=== PATIENT | female | born 1945 | race African-American/Black ===

== ENCOUNTER 2018-11-27 13:43 | Inpatient (IN) | payer OTHER ==
[~2018-11-27] VITALS: Ht 154.9 cm; Wt 39.9 kg
--- NOTE | 2018-11-27 14:16 | ERD ---
ER Documentation Chief Complaint Chief Complaint dialysis shunt not working. no dialysis today because of problem HPI The patient is a 73-year-old female, presenting to the ER because of nonfunctional right upper extremity AV fistula, unable to have dialysis today, she denies chest pain, dyspnea, abdominal pain, vomiting. ROS All systems reviewed and are negative except as per history of present illness. Medications Home Meds Reported Medications Insulin Regular, Human (Humulin R) 100 Unit/1 Ml Vial, 0 IJ SLIDING SCALE, VIAL IF BS 71-150=O UNIT <70 GIVE 8OZ ORANGE JUICE AND CALL MD IF BS 151-200=2 UNITS,201-250=4 UNITS,251-300=8 UNITS,351-400=10 UNITS,>400=12 UNITS AND CALL MD. 11/27/18 Trazodone Hcl* (Trazodone Hcl*) 50 Mg Tablet, 50 MG PO QHS, #30 TAB 11/27/18 Tadalafil (Cialis) 20 Mg Tablet, 20 MG PO DAILY, TAB 11/27/18 Sennosides* (Senna Lax*) 8.6 Mg Tablet, 1 TAB PO QHS, TAB 11/27/18 Nut.tx.impaired Renal Fxn,Soy (NEPRO CARB STEADY) 237 Ml Liquid, 237 ML PO DAILY 11/27/18 Metoprolol Succinate* (Toprol XL*) 100 Mg Tab.sr.24h, 100 MG PO DAILY, #30 TAB HOLD FOR SBP<110 OR HR<60 11/27/18 Lorazepam* (Lorazepam*) 0.5 Mg Tablet, 0.5 MG PO HS PRN for NEEDED, TAB 11/27/18 Lisinopril* (Lisinopril*) 20 Mg Tablet, 20 MG PO DAILY, #30 TAB HOLD IF SBP<110 OR HR<60 11/27/18 Heparin Sodium,Porcine/Pf (HEPARIN SOD 5,000 UNIT/ 0.5 ML) 5,000 Unit/0.5 Ml Vial, 5000 UNIT IJ DAILY, VIAL 11/27/18 Glucagon,Human Recombinant (Glucagon Emergency Kit) 1 Mg Kit, 1 MG IJ NEEDED, KIT 11/27/18 Glipizide* (Glipizide*) 5 Mg Tablet, 5 MG PO AC BREAKFAST, TAB 11/27/18 Folic Acid* (Folic Acid*) 1 Mg Tablet, 1 MG PO Q MON,FRI, TAB 11/27/18 Mineral Oil* (Fleet* Mineral Oil Enema) Unknown Strength Oil, 118 ML RI Q72H, E NEMA 11/27/18 Febuxostat* (Uloric*) 40 Mg Tablet, 40 MG PO DAILY PRN for NEEDED, TAB 11/27/18 Famotidine* (Famotidine*) 20 Mg Tablet, 20 MG PO DAILY, #30 TAB 11/27/18 Ezetimibe* (Zetia*) 10 Mg Tablet, 10 MG PO DAILY, TAB 11/27/18 Bisacodyl (Dulcolax) 10 Mg Supp.rect, 10 MG RC Q48H, SUPP.RECT 11/27/18 Darbepoetin Madhu in Polysorbat (Aranesp) 25 Mcg/0.42 Ml Syringe, 75 MCG IJ Q TUES 11/27/18 Calcitriol* (Rocaltrol*) 0.25 Mcg Capsule, 0.25 MCG PO DAILY, CAP 11/27/18 Atorvastatin* (Atorvastatin*) 40 Mg Tablet, 40 MG PO QHS, #30 TAB 11/27/18 Aspirin* (Aspirin* EC) 81 Mg Tablet.dr, 81 MG PO DAILY, TAB 11/27/18 Amiodarone Hcl* (Amiodarone Hcl*) 200 Mg Tablet, 200 MG PO DAILY, #30 TAB 11/27/18 Acetaminophen* (Acetaminophen*) 650 Mg Tablet, 650 MG PO Q6H PRN for PAIN AND OR ELEVATED TEMP, #30 TAB 11/27/18 Allergies Allergies: Coded Allergies: No Known Allergy (Unverified , 11/27/18) Physical Exam Vitals Vital Signs Date Temp Pulse Resp B/P (MAP) Pulse Ox O2 O2 Flow FiO2 Time Delivery Rate 11/27/18 72 20 101/66 96 Room Air 18:49 (78) 11/27/18 Nasal 2 16:30 Cannula 11/27/18 97.6 80 18 110/60 80 13:48 (77) Physical Exam Const: No acute distress. Head: Atraumatic. Eyes: Normal Conjunctiva. ENT: Normal External Ears, Nose and Mouth. Neck: Full range of motion. No meningismus. Resp: Clear to auscultation bilaterally. Cardio: Regular rate and rhythm. Abd: Soft, non distended, normal bowel sounds, non tender. Skin: No petechiae or rashes. Back: No midline or flank tenderness. Ext: No cyanosis, or edema. Right upper extremity AV fistula w/o thrill/bruit Neur: Awake and alert. No focal deficit Psych: Normal Mood and Affect. Result Diagram: 11/27/18 1446 11/27/18 1446 Results 24 hrs Laboratory Tests Test 11/27/18 14:46 11/27/18 14:47 White Blood Count 12.8 10^3/ul Red Blood Count 4.88 10^6/ul Hemoglobin 13.1 g/dl Hematocrit 43.2 % Mean Corpuscular Volume 88.5 fl Mean Corpuscular Hemoglobin 26.8 pg Mean Corpuscular Hemoglobin Concent 30.3 g/dl Red Cell Distribution Width 15.0 % Platelet Count 342 10^3/UL Mean Platelet Volume 9.3 fl Immature Granulocytes % 0.500 % Neutrophils % 84.4 % Lymphocytes % 6.4 % Monocytes % 8.2 % Eosinophils % 0.2 % Basophils % 0.3 % Nucleated Red Blood Cells % 0.0 /100WBC Immature Granulocytes # 0.060 10^3/ul Neutrophils # 10.8 10^3/ul Lymphocytes # 0.8 10^3/ul Monocytes # 1.1 10^3/ul Eosinophils # 0.0 10^3/ul Basophils # 0.0 10^3/ul Nucleated Red Blood Cells # 0.0 10^3/ul Sodium Level 143 mmol/L Potassium Level 4.8 mmol/L Chloride Level 97 mmol/L Carbon Dioxide Level 30 mmol/L Anion Gap 16 Blood Urea Nitrogen 56 mg/dl Creatinine 10.70 mg/dl Est Glomerular Filtrat Rate mL/min mL/min Glucose Level 85 mg/dl Calcium Level 10.3 mg/dl Prothrombin Time 12.0 Sec Prothrombin Time Ratio 0.9 INR International Normalized Ratio 0.88 Activated Partial Thromboplast Time 28.3 Sec Current Medications Medications Dose Sig/Harrison Start Time Status Last (Trade) Ordered Route PRN Stop Time Admin Dose Reason Admin 650 mg Q6H PRN 11/27/18 Acetaminophen PO MILD 18:30 (Tylenol PAIN(1-3)OR Tab) ELEVATED TEMP Amiodarone 200 mg DAILY PO 11/28/18 HCl 09:00 (Cordarone) Aspirin 81 mg DAILY PO 11/28/18 (Halfprin) 09:00 40 mg QHS PO 11/27/18 Atorvastatin 21:00 Calcium (Lipitor) Bisacodyl 10 mg Q48H RI 11/27/18 (Dulcolax 18:30 Supp) Calcitriol 0.25 mcg DAILY PO 11/28/18 (Rocaltrol) 09:00 EZETIMIBE 10 mg DAILY PO 11/28/18 (Zetia) 09:00 Famotidine 20 mg DAILY PO 11/28/18 (Pepcid) 09:00 Folic Acid 1 mg DAILY PO 11/28/18 (Folic Acid) 09:00 Heparin 5,000 unit BID SC 11/27/18 Sodium 21:00 (Porcine) (Heparin (5000 Units/0.5 ml)) Lisinopril 20 mg DAILY PO 11/28/18 (Zestril) 09:00 Metoprolol 100 mg DAILY PO 11/28/18 Succinate 09:00 (Toprol Xl) Senna 1 tab QHS PO 11/27/18 (Senokot) 21:00 Trazodone 50 mg QHS PO 11/27/18 HCl 21:00 (Desyrel) Procedures/MDM Consultation: I discussed the patient with the vascular surgeon Dr. Mohamud at 4:45 PM, who was made aware of the lab, the treatment, the patient condition and he accepted the consult MEDICAL MAKING DECISION: The patient is a 73-year-old male, presenting with acute malfunction of the AV fistula, will require to be admitted for intervention Departure Diagnosis: Primary Impression: Problem with dialysis access Additional Impression: Anemia VIVIANA JAUREGUI MD November 27, 2018 14:16
[2018-11-27] MEDS ORDERED: ACET-2047 PO (17:37)
[2018-11-27] MEDS ORDERED: AMIO200T4 PO (17:39)
[2018-11-27] MEDS ORDERED: ASPI-817 PO (17:39)
[2018-11-27] MEDS ORDERED: ATOR40TA68 PO (17:40)
[2018-11-27] MEDS ORDERED: CALC0.255 PO (17:40)
[2018-11-27] MEDS ORDERED: DARB25DI IJ (17:42)
[2018-11-27] MEDS ORDERED: EZET10TA31 PO (17:43)
[2018-11-27] MEDS ORDERED: BISA10SU55 RC (17:43)
[2018-11-27] MEDS ORDERED: FAMO20TA18 PO (17:44)
[2018-11-27] MEDS ORDERED: FEBU40TA PO (17:44)
[2018-11-27] MEDS ORDERED: MINE133E23 PR (17:45)
[2018-11-27] MEDS ORDERED: FOLI-49 PO (17:46)
[2018-11-27] MEDS ORDERED: GLIP5TAB13 PO (17:46)
[2018-11-27] MEDS ORDERED: HEPA500021 IJ (17:47)
[2018-11-27] MEDS ORDERED: GLUC1KIT IJ (17:47)
[2018-11-27] MEDS ORDERED: LISI-471 PO (17:48)
[2018-11-27] MEDS ORDERED: LORA0.5T PO (17:49)
[2018-11-27] MEDS ORDERED: METO-336 PO (17:50)
[2018-11-27] MEDS ORDERED: NUT.237L54 PO (17:51)
[2018-11-27] MEDS ORDERED: SENN-120 PO (17:51)
[2018-11-27] MEDS ORDERED: TRAZ-111 PO (17:52)
[2018-11-27] MEDS ORDERED: TADA20TA PO (17:52)
[2018-11-27] MEDS ORDERED: INSU100V3 IJ (17:55)
[2018-11-27] MEDS ORDERED: ACETAMINOPHEN 325 MG TAB PO PRN (18:30)
[2018-11-27] MEDS ORDERED: HEPARIN 5,000 UNIT/0.5 ML VIAL SC SCH (21:00)
[2018-11-27 21:25] VITALS: BP 125/65; PULSE 61; RESP 18
[2018-11-27] MEDS ORDERED: HEPARIN 5,000 UNIT/1 ML VIAL ONE (22:55)
[2018-11-27] MEDS ORDERED: PENDING SANTYL ORDER FOR WOUND CARE XX PRN (23:00)
[2018-11-27] MEDS: SENNA TAB PO SCH (23:02)
[2018-11-27] MEDS: traZODone 50 MG TAB PO SCH (23:02)
[2018-11-27] MEDS: ATORVASTATIN 40 MG TAB PO SCH (23:02)
[2018-11-27] MEDS: HEPARIN 5,000 UNIT/1 ML VIAL SC SCH (23:04)
[2018-11-27] MEDS: BISACODYL 10 MG SUPP PR SCH (23:12)
[2018-11-27 23:15] VITALS: Ht 154.9 cm; Wt 39.9 kg
[2018-11-28] VITALS (15 sets, daily range): BP systolic 92–124; BP diastolic 39–63; PULSE 59–70; RESP 13–23
[2018-11-28] MEDS ORDERED: GLUCOSE GEL 15 GRAM TUBE BUCCAL PRN (08:00)
[2018-11-28] MEDS ORDERED: GLUCOSE GEL 15 GRAM TUBE PO PRN ×2 (08:00)
[2018-11-28] MEDS ORDERED: INSULIN ASPART [NOVOLOG] 3 ML PEN SC SCH (08:00)
[2018-11-28] MEDS ORDERED: GLUCAGON 1 MG INJ IM PRN (08:00)
[2018-11-28] MEDS ORDERED: DEXTROSE 50% 50 ML SYRINGE IV PRN ×2 (08:00)
[2018-11-28] MEDS: HEPARIN 5,000 UNIT/1 ML VIAL SC SCH ×2 (08:52→21:00)
[2018-11-28] MEDS: CALCITRIOL 0.25 MCG CAP PO SCH (08:53)
[2018-11-28] MEDS: FOLIC ACID 1 MG TAB PO SCH (08:54)
[2018-11-28] MEDS: FAMOTIDINE 20 MG TAB PO SCH (08:54)
[2018-11-28] MEDS: EZETIMIBE 10 MG TAB PO SCH (08:54)
[2018-11-28] MEDS: ASPIRIN (EC) 81 MG TAB PO SCH (08:54)
[2018-11-28] MEDS: LISINOPRIL 20 MG TAB PO SCH (08:56)
[2018-11-28] MEDS: METOPROLOL (XL) 100 MG TAB PO SCH (08:56)
[2018-11-28] MEDS: AMIODARONE 200 MG TAB PO SCH (08:56)
--- NOTE | 2018-11-28 10:41 | HP ---
DATE OF ADMISSION: 11/27/2018 CHIEF COMPLAINT: Malfunctioning AV shunt. HISTORY OF PRESENT ILLNESS: This is a 73-year-old female with a past medical history of end-stage re nal disease on intermittent hemodialysis, history of hypertension, history of arrhythmia, history of diabetes, history of dyslipidemia, history of mineral bone disorder, who presents to [facility] from [facility] due to nonfunctioning AV fistula. The patient upon arriva l to the emergency room was noted to have no chest pain, no fevers, no chills, no nausea, vomiting. The patient was subsequently admitted to med/surg for evaluation. Overnight, the patient was stable. Upon my evaluation of the patient at this time, she currently denies any fevers, chills, nausea, or v omiting. The patient is agitated. PAST MEDICAL HISTORY: As stated above, history of end-stage renal disease, history of diabetes, hype rtension, arrhythmia, history of anemia. PAST SURGICAL HISTORY: Status post AV fistula. FAMILY HISTORY: No family history of kidney disease. SOCIAL HISTORY: She lives at [facility] facility. MEDICATIONS: The patient's medications have been reviewed. REVIEW OF SYSTEMS: A 14-point review of systems was conducted. Pertinent positives stated in HPI, o therwise negative. PHYSICAL EXAMINATION: VITAL SIGNS: Blood pressure is 119/52, respirations 17, pulse 70, temperature 97.9. HEENT: Head is normocephalic. NECK: Supple. HEART: Regular rate. LUNGS: Show diminished breath sounds at the base. ABDOMEN: Soft, nontender to palpation without rebound or guarding. EXTREMITIES: Negative for clubbing, cyanosis, no edema. DERMATOLOGIC: No rashes. MUSCULOSKELETAL: The patient has a right AV fistula. NEUROLOGIC: No focal deficits. LABORATORY DATA: Reviewed. ASSESSMENT AND PLAN: This is a 73-year-old female who presents with: 1. End-stage renal disease. The patient has a malfunctioning AV fistula. Plan is to get a vascular surgery consult, Dr. Mohamud for evaluation. We will also get an ultrasound. We will monitor sigrid al function closely. The patient may require a Valente catheter placement if AV fistula cannot be ap propriately corrected in a timely fashion. 2. Anemia. Monitor hemoglobin and hematocrit levels. We will give Epogen as needed. 3. Mineral bone disorder, monitor calcium and phosphorus levels. 4. Hypertension. Continue current blood pressure regimen. 5. History of arrhythmia. Continue amiodarone and metoprolol. Follow up with cardiology. 6. Dyslipidemia. Continue statin therapy. 7. Mineral bone disorder. Continue vitamin D analogs. 8. Gastrointestinal and deep vein thrombosis prophylaxis. 9. Leukocytosis, etiology may be secondary to systemic inflammatory response syndrome. No active ev idence of infection. Continue to monitor and place an ID consult for evaluation. 10. History of constipation. Continue current bowel regimen, adjust as needed. Please note, I spent an additional 30 minutes of [id number] time with this patient discussing advan layton directives and code status. The patient is FULL CODE. Dictated By: TANYA GONZALEZ DO NR/NTS Conf#: [id number] DID#: [id number] CC: TANYA GONZALEZ DO; BRANDON MOHAMUD MD;*EndCC*
--- NOTE | 2018-11-28 10:47 | CONS ---
Assessment/Plan Assessment/Plan Hospital Course (Demo Recall) 1. History of possible arrhythmia possible proximal atrial fibrillation also detail is unclear. currently on amiodarone remains in sinus 2. Renal failure on dialysis 3. Hemodialysis access malfunction 4. Hypertension 5. Diabetes 6. Possible psych disorder 7. Incomplete data Recommendations: I will continue with her current cardiac care for now. Echocardiogram will be obtained to evaluate LV size and function as well as left atrial size. Hemodialysis management as per renal AV fistula repair/replacement as per vascular. Thank you for his referral we will continue to follow along with you JING GARAY MD [facility] Consultation Date/Type/Reason Admit Date/Time November 27, 2018 at 17:31 Date of Consultation: November 28, 2018 Type of Consult Cardiology Reason for Consultation Possible arrhythmia Requesting Provider: TANYA GONZALEZ DO Date/Time of Note DATE: 11/28/18 TIME: 10:43 Hx of Present Illness Interventional cardiology consultation note Chief complaint: AV fistula malfunction Reason for consult: Rule out arrhythmia History of present illness: Thank you for this referral. History was obtained from the patient was extremely poor historian discussion with physician and staff. This is a 73 -[place] female with a renal failure on dialysis hypertension who was admitted because of AV fistula malfunction. Patient is on antiarrhythmics including amiodarone. Detail is unclear. She is very poor historian and uncooperative with physical exam and history. She is unaware of any history of cardiac disorder or arrhythmia she denies any palpitation to me. She denies any history of CVA to me Allergies: No known drug allergies Medications were reviewed as per medical reconciliation sheet Family history: She denies any history of early coronary artery disease Social history: Has quit smoking. Past medical history: End-stage renal disease hemodialysis diabetes hypertension Review of system: Patient denies all others except for above-mentioned Past Medical History Home Meds Reported Medications Insulin Regular, Human (Humulin R) 100 Unit/1 Ml Vial, 0 IJ SLIDING SCALE, VIAL IF BS 71-150=O UNIT <70 GIVE 8OZ ORANGE JUICE AND CALL MD IF BS 151-200=2 UNITS,201-250=4 UNITS,251-300=8 UNITS,351-400=10 UNITS,>400=12 UNITS AND CALL MD. 11/27/18 Trazodone Hcl* (Trazodone Hcl*) 50 Mg Tablet, 50 MG PO QHS, #30 TAB 11/27/18 Tadalafil (Cialis) 20 Mg Tablet, 20 MG PO DAILY, TAB 11/27/18 Sennosides* (Senna Lax*) 8.6 Mg Tablet, 1 TAB PO QHS, TAB 11/27/18 Nut.tx.impaired Renal Fxn,Soy (NEPRO CARB STEADY) 237 Ml Liquid, 237 ML PO DAILY 11/27/18 Metoprolol Succinate* (Toprol XL*) 100 Mg Tab.sr.24h, 100 MG PO DAILY, #30 TAB HOLD FOR SBP<110 OR HR<60 11/27/18 Lorazepam* (Lorazepam*) 0.5 Mg Tablet, 0.5 MG PO HS PRN for NEEDED, TAB 11/27/18 Lisinopril* (Lisinopril*) 20 Mg Tablet, 20 MG PO DAILY, #30 TAB HOLD IF SBP<110 OR HR<60 11/27/18 Heparin Sodium,Porcine/Pf (HEPARIN SOD 5,000 UNIT/ 0.5 ML) 5,000 Unit/0.5 Ml Vial, 5000 UNIT IJ DAILY, VIAL 11/27/18 Glucagon,Human Recombinant (Glucagon Emergency Kit) 1 Mg Kit, 1 MG IJ NEEDED, KIT 11/27/18 Glipizide* (Glipizide*) 5 Mg Tablet, 5 MG PO AC BREAKFAST, TAB 11/27/18 Folic Acid* (Folic Acid*) 1 Mg Tablet, 1 MG PO Q MON,FRI, TAB 11/27/18 Mineral Oil* (Fleet* Mineral Oil Enema) Unknown Strength Oil, 118 ML WA Q72H, ENEMA 11/27/18 Febuxostat* (Uloric*) 40 Mg Tablet, 40 MG PO DAILY PRN for NEEDED, TAB 11/27/18 Famotidine* (Famotidine*) 20 Mg Tablet, 20 MG PO DAILY, #30 TAB 11/27/18 Ezetimibe* (Zetia*) 10 Mg Tablet, 10 MG PO DAILY, TAB 11/27/18 Bisacodyl (Dulcolax) 10 Mg Supp.rect, 10 MG RC Q48H, SUPP.RECT 11/27/18 Darbepoetin Madhu in Polysorbat (Aranesp) 25 Mcg/0.42 Ml Syringe, 75 MCG IJ Q TUES 11/27/18 Calcitriol* (Rocaltrol*) 0.25 Mcg Capsule, 0.25 MCG PO DAILY, CAP 11/27/18 Atorvastatin* (Atorvastatin*) 40 Mg Tablet, 40 MG PO QHS, #30 TAB 11/27/18 Aspirin* (Aspirin* EC) 81 Mg Tablet.dr, 81 MG PO DAILY, TAB 11/27/18 Amiodarone Hcl* (Amiodarone Hcl*) 200 Mg Tablet, 200 MG PO DAILY, #30 TAB 11/27/18 Acetaminophen* (Acetaminophen*) 650 Mg Tablet, 650 MG PO Q6H PRN for PAIN AND OR ELEVATED TEMP, #30 TAB 11/27/18 Medications Current Medications Acetaminophen (Tylenol Tab) 650 mg Q6H PRN PO MILD PAIN(1-3)OR ELEVATED TEMP; Start 11/27/18 at 18:30 Amiodarone HCl (Cordarone) 200 mg DAILY PO Last administered on 11/28/18at 08:56; Admin Dose 200 MG; Start 11/28/18 at 09:00 Aspirin (Halfprin) 81 mg DAILY PO Last administered on 11/28/18at 08:54; Admin Dose 81 MG; Start 11/28/18 at 09:00 Atorvastatin Calcium (Lipitor) 40 mg QHS PO Last administered on 11/27/18at 23:02; Admin Dose 40 MG; Start 11/27/18 at 21:00 Bisacodyl (Dulcolax Supp) 10 mg Q48H WA ; Start 11/27/18 at 18:30 Calcitriol (Rocaltrol) 0.25 mcg DAILY PO Last administered on 11/28/18at 08:53; Admin Dose 0.25 MCG; Start 11/28/18 at 09:00 EZETIMIBE (Zetia) 10 mg DAILY PO Last administered on 11/28/18 08:54; Admin Dose 10 MG; Start 11/28/18 at 09:00 Famotidine (Pepcid) 20 mg DAILY PO Last administered on 11/28/18 08:54; Admin Dose 20 MG; Start 11/28/18 at 09:00 Folic Acid (Folic Acid) 1 mg DAILY PO Last administered on 11/28/18at 08:54; Admin Dose 1 MG; Start 11/28/18 at 09:00 Lisinopril (Zestril) 20 mg DAILY PO Last administered on 11/28/18at 08:56; Admin Dose 20 MG; Start 11/28/18 at 09:00 Metoprolol Succinate (Toprol Xl) 100 mg DAILY PO Last administered on 11/28/18at 08:56; Admin Dose 100 MG; Start 11/28/18 at 09:00 Senna (Senokot) 1 tab QHS PO Last administered on 11/27/18 23:02; Admin Dose 1 TAB; Start 11/27/18 at 21:00 Trazodone HCl (Desyrel) 50 mg QHS PO Last administered on 11/27/18at 23:02; Admin Dose 50 MG; Start 11/27/18 at 21:00 Miscellaneous Information [facility] This patient tarango... PRN PRN XX WOUND CARE; Start 11/27/18 at 23:00 Heparin Sodium (Porcine) (Heparin (5000 Units/1ml)) 5,000 unit Q12 SC Last administered on 11/28/18at 08:52; Admin Dose 5,000 UNIT; Start 11/27/18 at 22:55 Insulin Aspart (Novolog Insulin Pen) NOVOLOG *MILD* ALGORITHM WITH MEALS BEDTIME SC ; Start 11/28/18 at 08:00 Miscellaneous Information 1 ea NOTE XX ; Start 11/28/18 at 08:00 Glucose (Glutose) 15 gm Q15M PRN PO DECREASED GLUCOSE; Start 11/28/18 at 08:00 Glucose (Glutose) 22.5 gm Q15M PRN PO DECREASED GLUCOSE; Start 11/28/18 at 08:00 Dextrose (D50w Syringe) 25 ml Q15M PRN IV DECREASED GLUCOSE; Start 11/28/18 at 08:00 Dextrose (D50w Syringe) 50 ml Q15M PRN IV DECREASED GLUCOSE; Start 11/28/18 at 08:00 Glucagon (Glucagen) 1 mg Q15M PRN IM DECREASED GLUCOSE; Start 11/28/18 at 08:00 Glucose (Glutose) 15 gm Q15M PRN BUCCAL DECREASED GLUCOSE; Start 11/28/18 at 08:00 Allergies: Coded Allergies: No Known Allergy (Unverified , 11/27/18) Social History Smoking Status: Former smoker Exam/Review of Systems Vital Signs Vitals Vital Signs Date Temp Pulse Resp B/P (MAP) Pulse Ox O2 O2 Flow FiO2 Time Delivery Rate 11/28/18 97.9 70 17 119/52 96 Room Air 08:00 (74) 11/27/18 2 16:30 Exam Exam General: Thin cachectic looking female in no acute distress HEENT: NC/AT. pupils are equal. round. NECK: . no stridor. CV: RRR. systolic murmur; no gallop or rubs. PULM: no wheezing or rhonchi. GI: SOFT, NT, ND, no rebound or guarding Extremity: Significant B/L LE edema. no clubbing. neuro: awake and alert, OX2. Psych: Appears angry rectal: deferred EKG was personally showed normal sinus rhythm. Nonspecific T wave abnormalities Labs Result Diagram: 11/28/18 0539 11/28/18 0539 Results 24hrs Laboratory Tests Test 11/27/18 14:46 11/27/18 14:47 11/28/18 00:10 11/28/18 02:43 White Blood Count 12.8 H Red Blood Count 4.88 Hemoglobin 13.1 L Hematocrit 43.2 Mean Corpuscular 88.5 Volume Mean Corpuscular 26.8 L Hemoglobin Mean Corpuscular 30.3 L Hemoglobin Concent Red Cell 15.0 H Distribution Width Platelet Count 342 Mean Platelet Volume 9.3 Immature 0.500 H Granulocytes % Neutrophils % 84.4 H Lymphocytes % 6.4 L Monocytes % 8.2 Eosinophils % 0.2 Basophils % 0.3 Nucleated Red Blood 0.0 Cells % Immature 0.060 H Granulocytes # Neutrophils # 10.8 H Lymphocytes # 0.8 Monocytes # 1.1 H Eosinophils # 0.0 Basophils # 0.0 Nucleated Red Blood 0.0 Cells # Sodium Level 143 Potassium Level 4.8 Chloride Level 97 Carbon Dioxide Level 30 Anion Gap 16 H Blood Urea Nitrogen 56 H Creatinine 10.70 H Est Glomerular Filtrat Rate mL/min Glucose Level 85 Calcium Level 10.3 H Prothrombin Time 12.0 Prothrombin Time 0.9 Ratio INR International 0.88 Normalized Ratio Activated 28.3 Partial Thromboplast Time Bedside Glucose 93 106 Test 11/28/18 05:39 11/28/18 08:47 11/28/18 09:25 11/28/18 10:06 White Blood Count 11.9 H Red Blood Count 4.18 L Hemoglobin 11.4 L Hematocrit 36.4 L Mean Corpuscular 87.1 Volume Mean Corpuscular 27.3 L Hemoglobin Mean Corpuscular 31.3 L Hemoglobin Concent Red Cell 15.0 H Distribution Width Platelet Count 338 Mean Platelet Volume 10.2 Immature 0.600 H Granulocytes % Neutrophils % 87.5 H Lymphocytes % 4.6 L Monocytes % 6.7 Eosinophils % 0.2 Basophils % 0.4 Nucleated Red Blood 0.0 Cells % Immature 0.070 H Granulocytes # Neutrophils # 10.4 H Lymphocytes # 0.5 L Monocytes # 0.8 Eosinophils # 0.0 Basophils # 0.1 Nucleated Red Blood 0.0 Cells # Sodium Level 141 Potassium Level 4.8 Chloride Level 99 Carbon Dioxide Level 26 Anion Gap 16 H Blood Urea Nitrogen 61 H Creatinine 10.96 H Est Glomerular Filtrat Rate mL/min Glucose Level 60 #L Calcium Level 9.4 Phosphorus Level 6.0 H Magnesium Level 2.5 Total Bilirubin 0.2 Direct Bilirubin 0.00 Indirect Bilirubin 0.2 Aspartate Amino 24 Transf (AST/SGOT) Alanine 19 Aminotransferase (AL T/SGPT) Alkaline Phosphatase 110 Total Protein 6.5 Albumin 3.6 Bedside Glucose 63 L 89 77 Medications Medications Current Medications Acetaminophen (Tylenol Tab) 650 mg Q6H PRN PO MILD PAIN(1-3)OR ELEVATED TEMP; Start 11/27/18 at 18:30 Amiodarone HCl (Cordarone) 200 mg DAILY PO Last administered on 11/28/18at 08:56; Admin Dose 200 MG; Start 11/28/18 at 09:00 Aspirin (Halfprin) 81 mg DAILY PO Last administered on 11/28/18 08:54; Admin Dose 81 MG; Start 11/28/18 at 09:00 Atorvastatin Calcium (Lipitor) 40 mg QHS PO Last administered on 11/27/18at 23:02; Admin Dose 40 MG; Start 11/27/18 at 21:00 Bisacodyl (Dulcolax Supp) 10 mg Q48H WA ; Start 11/27/18 at 18:30 Calcitriol (Rocaltrol) 0.25 mcg DAILY PO Last administered on 11/28/18at 08:53; Admin Dose 0.25 MCG; Start 11/28/18 at 09:00 EZETIMIBE (Zetia) 10 mg DAILY PO Last administered on 11/28/18at 08:54; Admin Dose 10 MG; Start 11/28/18 at 09:00 Famotidine (Pepcid) 20 mg DAILY PO Last administered on 11/28/18 08:54; Admin Dose 20 MG; Start 11/28/18 at 09:00 Folic Acid (Folic Acid) 1 mg DAILY PO Last administered on 11/28/18 08:54; Admin Dose 1 MG; Start 11/28/18 at 09:00 Lisinopril (Zestril) 20 mg DAILY PO Last administered on 11/28/18 08:56; Admin Dose 20 MG; Start 11/28/18 at 09:00 Metoprolol Succinate (Toprol Xl) 100 mg DAILY PO Last administered on 11/28/18 08:56; Admin Dose 100 MG; Start 11/28/18 at 09:00 Senna (Senokot) 1 tab QHS PO Last administered on 11/27/18at 23:02; Admin Dose 1 TAB; Start 11/27/18 at 21:00 Trazodone HCl (Desyrel) 50 mg QHS PO Last administered on 11/27/18 23:02; Admin Dose 50 MG; Start 11/27/18 at 21:00 Miscellaneous Information (Pending [facility] Order For Wound Care) This patient tarango... PRN PRN XX WOUND CARE; Start 11/27/18 at 23:00 Heparin Sodium (Porcine) (Heparin (5000 Units/1ml)) 5,000 unit Q12 SC Last administered on 11/28/18at 08:52; Admin Dose 5,000 UNIT; Start 11/27/18 at 22:55 Insulin Aspart (Novolog Insulin Pen) NOVOLOG *MILD* ALGORITHM WITH MEALS BEDTIME SC ; Start 11/28/18 at 08:00 Miscellaneous Information 1 ea NOTE XX ; Start 11/28/18 at 08:00 Glucose (Glutose) 15 gm Q15M PRN PO DECREASED GLUCOSE; Start 11/28/18 at 08:00 Glucose (Glutose) 22.5 gm Q15M PRN PO DECREASED GLUCOSE; Start 11/28/18 at 08:00 Dextrose (D50w Syringe) 25 ml Q15M PRN IV DECREASED GLUCOSE; Start 11/28/18 at 08:00 Dextrose (D50w Syringe) 50 ml Q15M PRN IV DECREASED GLUCOSE; Start 11/28/18 at 08:00 Glucagon (Glucagen) 1 mg Q15M PRN IM DECREASED GLUCOSE; Start 11/28/18 at 08:00 Glucose (Glutose) 15 gm Q15M PRN BUCCAL DECREASED GLUCOSE; Start 11/28/18 at 08:00 JING GARAY MD November 28, 2018 10:47
[2018-11-28] MEDS ORDERED: DEXTROSE 5%-0.9% NACL 1,000 ML IV SCH (11:00)
[2018-11-28] MEDS: INSULIN ASPART [NOVOLOG] 3 ML PEN SC SCH ×3 (13:00→21:00)
[2018-11-28] MEDS ORDERED: BUPIVACAINE 0.25% (MPF) 30 ML INJ ONE (16:17)
[2018-11-28] MEDS ORDERED: HEPARIN 1000 UNITS/ML 10 ML INJ ONE ×2 (16:17→20:51)
[2018-11-28] MEDS ORDERED: POLYMYXIN/BACITRACIN 1L IRRIG ONE (16:17)
[2018-11-28] MEDS ORDERED: THROMBIN 5000 UNIT VIAL ONE (16:17)
[2018-11-28] MEDS ORDERED: GELATIN SIZE 100 SPONGE ONE (16:17)
[2018-11-28] MEDS ORDERED: LIDOCAINE 1% (MPF) 30 ML INJ ONE (16:17)
--- NOTE | 2018-11-28 17:48 | CONS ---
DATE OF ADMISSION: 11/27/2018 DATE OF CONSULTATION: 11/28/2018 TYPE OF CONSULTATION: Infectious Disease. REASON FOR CONSULTATION: Antibiotic management. HISTORY OF PRESENT ILLNESS: Kellie Kothari is a 73-year-old female who presents to the emergency room fo r nonfunctioning of her right upper extremity AV fistula with inability to have dialysis on the day o f admission. Her past problems include: 1. End-stage renal disease on hemodialysis. 2. Hypertension. 3. Arrhythmia. 4. Diabetes. 5. Dyslipidemia. 6. Mineral bone disorder. 7. Nonfunctioning AV fistula. The patient was agitated on admission. FAMILY HISTORY: Noncontributory. SOCIAL HISTORY: She does not smoke, drink or abuse drugs. She lives in a alf facility. ALLERGIES: NONE TO PENICILLIN, SULFA OR FOODS. MEDICATIONS: Per chart. REVIEW OF SYSTEMS: Noncontributory. PHYSICAL EXAMINATION: GENERAL: The patient is a well-developed, well-nourished female who is alert, responsive, in no acut e distress. VITAL SIGNS: Stable. She is afebrile. SKIN: Without generalized rash. HEENT: Within normal limits. NECK: Supple. LYMPH NODES: None palpable. CHEST: Decreased breath sounds at the bases. HEART: Without murmur or gallop. ABDOMEN: Soft, nontender, without organosplenomegaly or masses. EXTREMITIES: No cyanosis, clubbing, or edema. AV fistula on the right. RECTAL AND GENITAL: Deferred. NEUROLOGIC: No focal neurological abnormality. PLAN: Get Dr. Mohamud, vascular surgery to see if the AV fistula can be appropriately corrected. The patient may need a Valente catheter. Patient has leukocytosis may be secondary to systemic infla mmatory response, but at the present time it is unclear. Chest x-ray is negative. At this point, th ere is no evidence for infection. We will continue her on current therapy. Dictated By: HAIM TAVAREZ MD, JD/CONRAD Conf#: [id number] DID#: [id number]
--- NOTE | 2018-11-28 19:38 | PREAC ---
Date/Time of Note Date/Time of Note DATE: 11/28/18 TIME: 19:36 Anesthesia Eval and Record Evaluation Time Pre-Procedure Interview DATE: 11/28/18 TIME: 19:36 Age 73 Sex female NPO: 8 hrs Preoperative diagnosis LEFT AV FISTULA MALFUNCTION Planned procedure LEFT AV FISTULA REVISION Past Medical History Past Medical History: Includes Cardio: HTN, Arrythmia Endo: Diabetes Renal: ESRD on dialysis Surgery & Anesthesia Issues No known issue Meds Anticoagulation: No Beta Giovany within 24 hr: Yes Reported Medications Insulin Regular, Human (Humulin R) 100 Unit/1 Ml Vial, 0 IJ SLIDING SCALE, VIAL IF BS 71-150=O UNIT <70 GIVE 8OZ ORANGE JUICE AND CALL MD IF BS 151-200=2 UNITS,201-250=4 UNITS,251-300=8 UNITS,351-400=10 UNITS,>400=12 UNITS AND CALL MD. 11/27/18 Trazodone Hcl* (Trazodone Hcl*) 50 Mg Tablet, 50 MG PO QHS, #30 TAB 11/27/18 Tadalafil (Cialis) 20 Mg Tablet, 20 MG PO DAILY, TAB 11/27/18 Sennosides* (Senna Lax*) 8.6 Mg Tablet, 1 TAB PO QHS, TAB 11/27/18 Nut.tx.impaired Renal Fxn,Soy (NEPRO CARB STEADY) 237 Ml Liquid, 237 ML PO DAILY 11/27/18 Metoprolol Succinate* (Toprol XL*) 100 Mg Tab.sr.24h, 100 MG PO DAILY, #30 TAB HOLD FOR SBP<110 OR HR<60 11/27/18 Lorazepam* (Lorazepam*) 0.5 Mg Tablet, 0.5 MG PO HS PRN for NEEDED, TAB 11/27/18 Lisinopril* (Lisinopril*) 20 Mg Tablet, 20 MG PO DAILY, #30 TAB HOLD IF SBP<110 OR HR<60 11/27/18 Heparin Sodium,Porcine/Pf (HEPARIN SOD 5,000 UNIT/ 0.5 ML) 5,000 Unit/0.5 Ml Vial, 5000 UNIT IJ DAILY, VIAL 11/27/18 Glucagon,Human Recombinant (Glucagon Emergency Kit) 1 Mg Kit, 1 MG IJ NEEDED, KIT 11/27/18 Glipizide* (Glipizide*) 5 Mg Tablet, 5 MG PO AC BREAKFAST, TAB 11/27/18 Folic Acid* (Folic Acid*) 1 Mg Tablet, 1 MG PO Q MON,FRI, TAB 11/27/18 Mineral Oil* (Fleet* Mineral Oil Enema) Unknown Strength Oil, 118 ML WI Q72H, ENEMA 11/27/18 Febuxostat* (Uloric*) 40 Mg Tablet, 40 MG PO DAILY PRN for NEEDED, TAB 11/27/18 Famotidine* (Famotidine*) 20 Mg Tablet, 20 MG PO DAILY, #30 TAB 11/27/18 Ezetimibe* (Zetia*) 10 Mg Tablet, 10 MG PO DAILY, TAB 11/27/18 Bisacodyl (Dulcolax) 10 Mg Supp.rect, 10 MG RC Q48H, SUPP.RECT 11/27/18 Darbepoetin Madhu in Polysorbat (Aranesp) 25 Mcg/0.42 Ml Syringe, 75 MCG IJ Q TUES 11/27/18 Calcitriol* (Rocaltrol*) 0.25 Mcg Capsule, 0.25 MCG PO DAILY, CAP 11/27/18 Atorvastatin* (Atorvastatin*) 40 Mg Tablet, 40 MG PO QHS, #30 TAB 11/27/18 Aspirin* (Aspirin* EC) 81 Mg Tablet.dr, 81 MG PO DAILY, TAB 11/27/18 Amiodarone Hcl* (Amiodarone Hcl*) 200 Mg Tablet, 200 MG PO DAILY, #30 TAB 11/27/18 Acetaminophen* (Acetaminophen*) 650 Mg Tablet, 650 MG PO Q6H PRN for PAIN AND OR ELEVATED TEMP, #30 TAB 11/27/18 Current Medications Acetaminophen (Tylenol Tab) 650 mg Q6H PRN PO MILD PAIN(1-3)OR ELEVATED TEMP; Start 11/27/18 at 18:30 Amiodarone HCl (Cordarone) 200 mg DAILY PO Last administered on 11/28/18at 08:56; Admin Dose 200 MG; Start 11/28/18 at 09:00 Aspirin (Halfprin) 81 mg DAILY PO Last administered on 11/28/18at 08:54; Admin Dose 81 MG; Start 11/28/18 at 09:00 Atorvastatin Calcium (Lipitor) 40 mg QHS PO Last administered on 11/27/18at 23:02; Admin Dose 40 MG; Start 11/27/18 at 21:00 Bisacodyl (Dulcolax Supp) 10 mg Q48H WI ; Start 11/27/18 at 18:30 Calcitriol (Rocaltrol) 0.25 mcg DAILY PO Last administered on 11/28/18 08:53; Admin Dose 0.25 MCG; Start 11/28/18 at 09:00 EZETIMIBE (Zetia) 10 mg DAILY PO Last administered on 11/28/18 08:54; Admin Dose 10 MG; Start 11/28/18 at 09:00 Famotidine (Pepcid) 20 mg DAILY PO Last administered on 11/28/18 08:54; Admin Dose 20 MG; Start 11/28/18 at 09:00 Folic Acid (Folic Acid) 1 mg DAILY PO Last administered on 11/28/18 08:54; Admin Dose 1 MG; Start 11/28/18 at 09:00 Lisinopril (Zestril) 20 mg DAILY PO Last administered on 11/28/18 08:56; Admin Dose 20 MG; Start 11/28/18 at 09:00 Metoprolol Succinate (Toprol Xl) 100 mg DAILY PO Last administered on 11/28/18 08:56; Admin Dose 100 MG; Start 11/28/18 at 09:00 Senna (Senokot) 1 tab QHS PO Last administered on 11/27/18at 23:02; Admin Dose 1 TAB; Start 11/27/18 at 21:00 Trazodone HCl (Desyrel) 50 mg QHS PO Last administered on 11/27/18 23:02; Admin Dose 50 MG; Start 11/27/18 at 21:00 Miscellaneous Information (Pending [facility] Order For Wound Care) This patient tarango... PRN PRN XX WOUND CARE; Start 11/27/18 at 23:00 Heparin Sodium (Porcine) (Heparin (5000 Units/1ml)) 5,000 unit Q12 SC Last administered on 11/28/18 08:52; Admin Dose 5,000 UNIT; Start 11/27/18 at 22:55 Miscellaneous Information 1 ea NOTE XX ; Start 11/28/18 at 08:00 Glucose (Glutose) 15 gm Q15M PRN PO DECREASED GLUCOSE; Start 11/28/18 at 08:00 Glucose (Glutose) 22.5 gm Q15M PRN PO DECREASED GLUCOSE; Start 11/28/18 at 08:00 Dextrose (D50w Syringe) 25 ml Q15M PRN IV DECREASED GLUCOSE; Start 11/28/18 at 08:00 Dextrose (D50w Syringe) 50 ml Q15M PRN IV DECREASED GLUCOSE; Start 11/28/18 at 08:00 Glucagon (Glucagen) 1 mg Q15M PRN IM DECREASED GLUCOSE; Start 11/28/18 at 08:00 Glucose (Glutose) 15 gm Q15M PRN BUCCAL DECREASED GLUCOSE; Start 11/28/18 at 08:00 Dextrose/Sodium Chloride 1,000 ml @ 40 mls/hr Q24H IV Last administered on 11/28/18at 11:10; Admin Dose 40 MLS/HR; Start 11/28/18 at 11:00 Insulin Aspart (Novolog Insulin Pen) NOVOLOG *MILD* ALGORI... Q4 SC ; Start 11/28/18 at 13:00 Meds reviewed: Yes Allergies Coded Allergies: No Known Allergy (Unverified , 11/27/18) Allergies Reviewed: Yes Labs/Studies Labs Reviewed: Reviewed by anesthesiologist Result Diagram: 11/28/18 0539 11/28/18 0539 Laboratory Tests 11/28/18 05:39 Blood Bank Test 11/28/18 05:38 Antibody Screen NEGATIVE Blood Product Summary Counts Blood Type A POSITIVE Crossmatch Red Blood Cells test: N/A Studies: ECG, CXR Pre-procedure Exam Last vitals Vital Signs Date Temp Pulse Resp B/P (MAP) Pulse Ox O2 O2 Flow FiO2 Time Delivery Rate 11/28/18 97.9 61 16 123/55 95 Room Air 14:00 (77) 11/27/18 2 16:30 Airway: Adequate mouth opening, Adequate thyromental dist Mallampati: Mallampati II Teeth: Normal Lung: Normal Heart: Normal ASA Physical Status ASA physical status: 3 Emergency: None Planned Anesthetic General/MAC: LMA Planned Pain Management Parenteral pain med Pre-operative Attestations Prior to commencing anesthesia and surgery, the patient was re-evaluated, there was verification of: *The patient's identity *The results of appropriate recent lab work and preoperative vital signs *The above evaluation not changing prior to induction *Anesthetic plan, risk benefits, alternative and complications discussed with patient/family; questions answered; patient/family understands, accepts and wishes to proceed. REBA AMADO November 28, 2018 19:38
[2018-11-28] MEDS ORDERED: CEFAZOLIN 1 GM INJ ONE (20:00)
[2018-11-28] MEDS ORDERED: SEVOFLURANE 15 MIN ONE (20:00)
[2018-11-28] MEDS ORDERED: PROPOFOL 20 ML ONE (20:05)
[2018-11-28] MEDS ORDERED: LIDOCAINE 2% (SDV) 5 ML INJ ONE (20:53)
[2018-11-28] MEDS ORDERED: IOHEXOL 300MG/ML 30 ML BTL ONE (20:53)
[2018-11-28] MEDS ORDERED: ROCURONIUM 50 MG INJ ONE (20:53)
[2018-11-28] MEDS ORDERED: DEXAMETHASONE 4 MG/ML 5 ML INJ ONE (20:54)
[2018-11-28] MEDS ORDERED: ONDANSETRON 4 MG INJ ONE (20:54)
[2018-11-28] MEDS ORDERED: FENTAnyl 50 MCG/ML VIAL ONE (20:56)
[2018-11-28] MEDS ORDERED: POLYMYXIN/BACITRACIN 1L IRRIG IRR ONE (21:03)
--- NOTE | 2018-11-28 21:45 | OPR ---
Date/Time of Note Date/Time of Note DATE: 11/28/18 TIME: 21:42 Operative Report Procedure Date: November 28, 2018 Preoperative Diagnosis Clotted right arm AV fistula Postoperative Diagnosis Same Operation/Procedure Performed Thrombectomy right arm AV fistula with revision Angioplasty right subclavian vein 6 x 40 and 8 x 40 mm balloon Angioplasty superior vena cava 6 x 40 and 8 x 40 mm balloon Fluoroscopy Trial venogram Surgeon see signature line Fisher Oyster None Anesthesia Type: general Estimated Blood Loss: 10 - 50 ml's Transfusion none Specimen Stent Grafts/Implants none Complications none Disposition: PACU Procedure Description Patient was placed in supine position prepped and draped in usual sterile fashion timeout was called antibiotics was given I made a 1 cm incision over the arterial limb of the fistula which appeared to be cephalic vein fistula in the right arm incision was taken down to subcutaneous tissue which was then opened using electrocautery vessel loops were passed around the fistula which was then opened in a horizontal fashion using a 15 blade knife thrombectomy of the arterial limb of the fistula was successful I could not advance a 4 Taiwanese Nuzhat catheter more than 5 cm into the fistula guidewire would not also advance and venogram was done which showed long stent in the arm and the cephalic vein A second incision was made in the mid arm over the stent incision was taken down to subcutaneous tissue with solution of pus around the fistula fistula was opened the stent was completely removed from ectomy of the arterial and the venous limb of the fistula was performed using a 4 Taiwanese Nuzhat catheter venogram was done which showed 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 She was given 5000 units of IV heparin subclavian vein and the superior vena cava were angioplastied first using a 6 x 40 and then by 8 x 40 mm balloon over a 035 Glidewire Final venogram revealed patent superior vena cava and a patent subclavian vein with still some stenosis but up to 6 to 7 mm of lumen Both graftotomies were closed using 6-0 Prolene currently in a continuous fashion Wounds were irrigated and closed in 2 layers of 2-0 Vicryl suture for subcu and 3-0 Vicryl suture for running subcuticular skin closure She had a strong continuous bruit and Doppler signal over the newly thrombectomized fistula and tolerated procedure well BRANDON MONTE MD November 28, 2018 21:45
[2018-11-28] MEDS ORDERED: SUGAMMADEX SODIUM 200 MG/2 ML VIAL IV ONE (21:50)
[2018-11-28] MEDS: traZODone 50 MG TAB PO SCH (23:20)
[2018-11-28] MEDS: SENNA TAB PO SCH (23:20)
[2018-11-28] MEDS: ATORVASTATIN 40 MG TAB PO SCH (23:20)
[2018-11-29 02:00] VITALS: BP 97/46; PULSE 56; RESP 16
[2018-11-29] MEDS ORDERED: traZODone 50 MG TAB PO PRN ×2 (07:30→08:00)
[2018-11-29 08:00] VITALS: BP 106/47; PULSE 62; RESP 16
[2018-11-29] MEDS: INSULIN ASPART [NOVOLOG] 3 ML PEN SC SCH ×4 (08:44→21:00)
[2018-11-29] MEDS: FOLIC ACID 1 MG TAB PO SCH (08:45)
[2018-11-29] MEDS: EZETIMIBE 10 MG TAB PO SCH (08:45)
[2018-11-29] MEDS: CALCITRIOL 0.25 MCG CAP PO SCH (08:45)
[2018-11-29] MEDS: FAMOTIDINE 20 MG TAB PO SCH (08:45)
[2018-11-29] MEDS: ASPIRIN (EC) 81 MG TAB PO SCH (08:45)
[2018-11-29] MEDS: AMIODARONE 200 MG TAB PO SCH (08:47)
[2018-11-29] MEDS: METOPROLOL (XL) 100 MG TAB PO SCH (09:00)
[2018-11-29] MEDS: HEPARIN 5,000 UNIT/1 ML VIAL SC SCH ×2 (09:00→22:00)
[2018-11-29] MEDS: LISINOPRIL 20 MG TAB PO SCH (09:00)
--- NOTE | 2018-11-29 09:42 | RADRPT ---
Echocardiogram Report Patient Name: Genia JOHNSON ID: [id number] : 10 (73y 7m)Study Date: 11/28/2018 11:54:23 AM Gender: FAccession #: [id number] Tech: Ander Gonzalez [facility] Location: 22[address] Ref.Physician: JING LEE Height(Cm): BSA: Weight(Kg): Quality: AdequateOrder Physician: JING LEE Account #: Procedures: Echocardiographic Report: Transthoracic echocardiogram with complete 2D, M-Mode, and doppler examination. Indications: Cardiac Arrhythmia. Measurements: 2D/M Mode Doppler Measurement Value Normal Range Measurement Value Normal Range LVIDd 2D 2.6 [ 3.8 - 5.2 ] cm AV Peak Josue 0.9 [ 100.0 - 170.0 ] cm/sec LVIDs 2D 1.9 [ 2.2 - 3.5 ] cm AV Peak PG 3.0 [ 2.0 - 9.0 ] mmHg LVPWd 2D 0.8 [ 0.6 - 0.9 ] cm LVOT Peak Josue 0.7 [ 70.0 - 110.0 ] cm/sec IVSd 2D 0.9 [ 0.6 - 0.9 ] cm LVOT Peak PG 2.0 [ 2.0 - 6.0 ] mmHg AoR Diam 2D 2.4 [ 2.3 - 3.1 ] cm MV E Peak Josue 0.6 [ 60.0 - 130.0 ] cm/sec EDV 2D 25.3 [ 46.0 - 106.0 ] ml MV A Peak Josue 0.7 [ 100.0 - 120.0 ] cm/sec ESV 2D 10.9 [ 14.0 - 42.0 ] ml MV E/A 0.9 [ 0.8 - 1.5 ] ratio EF 2D 56.9 [ 54.0 - 74.0 ] percent MV Decel Time 197 [ 104 - 258 ] msec LA Dimen 2D 2.4 [ 2.7 - 3.8 ] cm Lat E` Josue 0.1 [ 10.0 - 15.0 ] cm/sec Lateral E/E` 8.1 [ 1.0 - 2.0 ] ratio MV E/A 0.9 [ 0.8 - 1.5 ] ratio TR Peak Josue 2.9 [ 100.0 - 280.0 ] cm/sec TR Peak PG 33.0 mmHg RVSP 43.0 [ 10.0 - 36.0 ] mmHg Findings: Left Ventricle: Normal left ventricular systolic function. Normal left ventricular cavity size. Normal left ventricular wall thickness. Ejection fraction is visually estimated at 55 %. Tissue Doppler/Mitral Doppler indices are consistent with pseudonormalization with mildly elevated left atrial pressure (Stage II diastolic dysfunction). Right Ventricle: Normal right ventricular size. Moderate right ventricular systolic dysfunction. Left Atrium: The left atrium is normal in size. Right Atrium: There is mild enlargement of right atrium. Mitral Valve: Mild mitral leaflet calcification. Mild mitral annular calcification. Trace mitral regurgitation. Aortic Valve: No hemodynamically significant aortic stenosis by doppler. Aortic cusps appear mildly calcified. Trileaflet aortic valve. Tricuspid Valve: Normal appearance of the tricuspid valve. Estimated peak PA systolic pressure 43 mmHg. There is mild tricuspid regurgitation. Pericardium: Normal pericardium with no significant pericardial effusion. Aorta: Normal aortic root. IVC: Normal size and normal respiratory collapse consistent with normal right atrial pressure. Conclusions: Normal left ventricular systolic function. Normal left ventricular cavity size. Normal left ventricular wall thickness. Ejection fraction is visually estimated at 55 %. Tissue Doppler/Mitral Doppler indices are consistent with pseudonormalization with mildly elevated left atrial pressure (Stage II diastolic dysfunction). There is mild enlargement of right atrium. Mild mitral leaflet calcification. Mild mitral annular calcification. Trace mitral regurgitation. No hemodynamically significant aortic stenosis by doppler. Aortic cusps appear mildly calcified. Trileaflet aortic valve. Normal appearance of the tricuspid valve. Estimated peak PA systolic pressure 43 mmHg. There is mild tricuspid regurgitation. Normal size and normal respiratory collapse consistent with normal right atrial pressure. Electronically Signed By: Jing Lee 2018-11-29 09:40:54 PDT
--- NOTE | 2018-11-29 09:54 | CONS ---
Consult Date/Type/Reason Admit Date/Time November 29, 2018 at 09:16 Initial Consult Date 11/28/18 Type of Consultation: cv Requesting Provider: TANYA GONZALEZ DO Date/Time of Note DATE: 11/29/18 TIME: 09:51 Subjective Interventional cardiology follow-up progress note Subjective: Discussed with staff. Discussed with physicians. Patient denies any chest pain to me She denies any palpitation to me but is a very poor historian Status post AV fistula repair November 28 Objective: General: Thin cachectic looking female in no acute distress HEENT: NC/AT. pupils are equal. round. NECK: . no stridor. CV: RRR. systolic murmur; no gallop or rubs. PULM: no wheezing or rhonchi. GI: SOFT, NT, ND, no rebound or guarding Extremity: Significant B/L LE edema. no clubbing. neuro: awake and alert, OX2. Psych: Appears angry rectal: deferred EKG was personally showed normal sinus rhythm. Nonspecific T wave abnormalities Echocardiogram done 11/28/2018 was personally reviewed which shows: Normal left ventricular systolic function. Normal left ventricular cavity size. Normal left ventricular wall thickness. Ejection fraction is visually estimated at 55 %. Tissue Doppler/Mitral Doppler indices are consistent with pseudonormalization with mildly elevated left atrial pressure (Stage II diastolic dysfunction). There is mild enlargement of right atrium. Mild mitral leaflet calcification. Mild mitral annular calcification. Trace mitral regurgitation. No hemodynamically significant aortic stenosis by doppler. Aortic cusps appear mildly calcified. Trileaflet aortic valve. Normal appearance of the tricuspid valve. Estimated peak PA systolic pressure 43 mmHg. There is mild tricuspid regurgitation. Normal size and normal respiratory collapse consistent with normal right atrial pressure. Objective Vitals Vital Signs Date Temp Pulse Resp B/P (MAP) Pulse Ox O2 O2 Flow FiO2 Time Delivery Rate 11/29/18 98.8 62 16 106/47 94 08:00 (66) 11/28/18 Nasal 2.0 23:00 Cannula Intake and Output 11/28/18 11/28/18 11/29/18 1515:00 23:00 07:00 IntakeIntake Total 300 ml OutputOutput Total 30 ml BalanceBalance 270 ml Results/Medications Result Diagram: 11/28/18 0539 11/28/18 0539 Results 24 hrs Laboratory Tests Test 11/28/18 10:06 11/28/18 11:08 11/28/18 13:18 11/28/18 17:48 Bedside Glucose 77 115 102 90 Test 11/28/18 23:18 11/29/18 08:19 Bedside Glucose 139 184 Home Meds Reported Medications Insulin Regular, Human (Humulin R) 100 Unit/1 Ml Vial, 0 IJ SLIDING SCALE, VIAL IF BS 71-150=O UNIT <70 GIVE 8OZ ORANGE JUICE AND CALL MD IF BS 151-200=2 UNITS,201-250=4 UNITS,251-300=8 UNITS,351-400=10 UNITS,>400=12 UNITS AND CALL MD. 11/27/18 Trazodone Hcl* (Trazodone Hcl*) 50 Mg Tablet, 50 MG PO QHS, #30 TAB 11/27/18 Tadalafil (Cialis) 20 Mg Tablet, 20 MG PO DAILY, TAB 11/27/18 Sennosides* (Senna Lax*) 8.6 Mg Tablet, 1 TAB PO QHS, TAB 11/27/18 Nut.tx.impaired Renal Fxn,Soy (NEPRO CARB STEADY) 237 Ml Liquid, 237 ML PO DAILY 11/27/18 Metoprolol Succinate* (Toprol XL*) 100 Mg Tab.sr.24h, 100 MG PO DAILY, #30 TAB HOLD FOR SBP<110 OR HR<60 11/27/18 Lorazepam* (Lorazepam*) 0.5 Mg Tablet, 0.5 MG PO HS PRN for NEEDED, TAB 11/27/18 Lisinopril* (Lisinopril*) 20 Mg Tablet, 20 MG PO DAILY, #30 TAB HOLD IF SBP<110 OR HR<60 11/27/18 Heparin Sodium,Porcine/Pf (HEPARIN SOD 5,000 UNIT/ 0.5 ML) 5,000 Unit/0.5 Ml Vial, 5000 UNIT IJ DAILY, VIAL 11/27/18 Glucagon,Human Recombinant (Glucagon Emergency Kit) 1 Mg Kit, 1 MG IJ NEEDED, KIT 11/27/18 Glipizide* (Glipizide*) 5 Mg Tablet, 5 MG PO AC BREAKFAST, TAB 11/27/18 Folic Acid* (Folic Acid*) 1 Mg Tablet, 1 MG PO Q MON,FRI, TAB 11/27/18 Mineral Oil* (Fleet* Mineral Oil Enema) Unknown Strength Oil, 118 ML [place] Q72H, ENEMA 11/27/18 Febuxostat* (Uloric*) 40 Mg Tablet, 40 MG PO DAILY PRN for NEEDED, TAB 11/27/18 Famotidine* (Famotidine*) 20 Mg Tablet, 20 MG PO DAILY, #30 TAB 11/27/18 Ezetimibe* (Zetia*) 10 Mg Tablet, 10 MG PO DAILY, TAB 11/27/18 Bisacodyl (Dulcolax) 10 Mg Supp.rect, 10 MG RC Q48H, SUPP.RECT 11/27/18 Darbepoetin Madhu in Polysorbat (Aranesp) 25 Mcg/0.42 Ml Syringe, 75 MCG IJ Q TUES 11/27/18 Calcitriol* (Rocaltrol*) 0.25 Mcg Capsule, 0.25 MCG PO DAILY, CAP 11/27/18 Atorvastatin* (Atorvastatin*) 40 Mg Tablet, 40 MG PO QHS, #30 TAB 11/27/18 Aspirin* (Aspirin* EC) 81 Mg Tablet.dr, 81 MG PO DAILY, TAB 11/27/18 Amiodarone Hcl* (Amiodarone Hcl*) 200 Mg Tablet, 200 MG PO DAILY, #30 TAB 11/27/18 Acetaminophen* (Acetaminophen*) 650 Mg Tablet, 650 MG PO Q6H PRN for PAIN AND OR ELEVATED TEMP, #30 TAB 11/27/18 Medications Current Medications Acetaminophen (Tylenol Tab) 650 mg Q6H PRN PO MILD PAIN(1-3)OR ELEVATED TEMP; Start 11/27/18 at 18:30 Amiodarone HCl (Cordarone) 200 mg DAILY PO Last administered on 11/29/18at 08:47; Admin Dose 200 MG; Start 11/28/18 at 09:00 Aspirin (Halfprin) 81 mg DAILY PO Last administered on 11/29/18at 08:45; Admin Dose 81 MG; Start 11/28/18 at 09:00 Atorvastatin Calcium (Lipitor) 40 mg QHS PO Last administered on 11/28/18at 23 :20; Admin Dose 40 MG; Start 11/27/18 at 21:00 Bisacodyl (Dulcolax Supp) 10 mg Q48H NE ; Start 11/27/18 at 18:30 Calcitriol (Rocaltrol) 0.25 mcg DAILY PO Last administered on 11/29/18 08:45; Admin Dose 0.25 MCG; Start 11/28/18 at 09:00 EZETIMIBE (Zetia) 10 mg DAILY PO Last administered on 11/29/18 08:45; Admin Dose 10 MG; Start 11/28/18 at 09:00 Famotidine (Pepcid) 20 mg DAILY PO Last administered on 11/29/18 08:45; Admin Dose 20 MG; Start 11/28/18 at 09:00 Folic Acid (Folic Acid) 1 mg DAILY PO Last administered on 11/29/18 08:45; Admin Dose 1 MG; Start 11/28/18 at 09:00 Lisinopril (Zestril) 20 mg DAILY PO Last administered on 11/28/18 08:56; Admin Dose 20 MG; Start 11/28/18 at 09:00 Metoprolol Succinate (Toprol Xl) 100 mg DAILY PO Last administered on 11/28/18 08:56; Admin Dose 100 MG; Start 11/28/18 at 09:00 Senna (Senokot) 1 tab QHS PO Last administered on 11/28/18at 23:20; Admin Dose 1 TAB; Start 11/27/18 at 21:00 Miscellaneous Information (Pending [facility] Order For Wound Care) This patient tarango... PRN PRN XX WOUND CARE; Start 11/27/18 at 23:00 Heparin Sodium (Porcine) (Heparin (5000 Units/1ml)) 5,000 unit Q12 SC Last administered on 11/28/18at 08:52; Admin Dose 5,000 UNIT; Start 11/27/18 at 22:55 Miscellaneous Information 1 ea NOTE XX ; Start 11/28/18 at 08:00 Glucose (Glutose) 15 gm Q15M PRN PO DECREASED GLUCOSE; Start 11/28/18 at 08:00 Glucose (Glutose) 22.5 gm Q15M PRN PO DECREASED GLUCOSE; Start 11/28/18 at 08:00 Dextrose (D50w Syringe) 25 ml Q15M PRN IV DECREASED GLUCOSE; Start 11/28/18 at 08:00 Dextrose (D50w Syringe) 50 ml Q15M PRN IV DECREASED GLUCOSE; Start 11/28/18 at 08:00 Glucagon (Glucagen) 1 mg Q15M PRN IM DECREASED GLUCOSE; Start 11/28/18 at 08:00 Glucose (Glutose) 15 gm Q15M PRN BUCCAL DECREASED GLUCOSE; Start 11/28/18 at 08:00 Insulin Aspart (Novolog Insulin Pen) NOVOLOG *MILD* ALGORITHM WITH MEALS BEDTIME SC Last administered on 11/29/18at 08:44; Admin Dose 2 UNIT; Start 11/29/18 at 08:00 Trazodone HCl (Desyrel) 50 mg HS PRN PO insomnia; Start 11/29/18 at 08:00 Assessment/Plan Hospital Course (Demo Recall) 1. History of possible arrhythmia possible proximal atrial fibrillation although detail is unclear. currently on amiodarone remains in sinus 2. Renal failure on dialysis 3. Hemodialysis access malfunction 4. Hypertension 5. Diabetes 6. Possible psych disorder 7. Incomplete data Recommendations: We will decrease the amiodarone 200 mg daily. Thyroid function test to be checked Continue with the beta-sintia. Hemodialysis management as per renal Thank you for his referral we will continue to follow along with you JING GARAY MD [facility] JING GARAY MD November 29, 2018 09:54
[2018-11-29 10:00] VITALS: BP 102/54; PULSE 60
--- NOTE | 2018-11-29 10:14 | PN ---
DATE: 11/29/2018 SUBJECTIVE: The patient yesterday underwent an AV fistula correction by Dr. Mohamud. No other angelina nts noted overnight. The patient, however, still remains agitated. OBJECTIVE: VITAL SIGNS: Blood pressure is 106/47, respirations 16, pulse 62, temperature 98.8. HEENT: Head is normocephalic. NECK: Supple. HEART: Regular rate. LUNGS: Show diminished breath sounds at the base. ABDOMEN: Soft, nontender to palpation without rebound or guarding. EXTREMITIES: Negative for clubbing, cyanosis, no edema. DERMATOLOGIC: No rashes. MUSCULOSKELETAL: No joint effusion. NEUROLOGIC: No change in exam. MEDICATIONS: Reviewed. LABORATORY DATA: Reviewed. ASSESSMENT AND PLAN: 1. End-stage renal disease. The patient is status post AV fistula repair. Plan is for hemodialysis today. We will dialyze 3 hours 3k bath, calcium 2.5. 2. Anemia. Continue to monitor hemoglobin and hematocrit levels. We will give Epogen as needed. 3. Mineral bone disorder, monitor calcium and phosphorus levels. 4. Hypertension. Blood pressure controlled. Continue current blood pressure regimen. 5. Arrhythmia. Continue current medical management. Follow up with cardiology. 6. Dyslipidemia. Continue statin therapy. 7. Leukocytosis, systemic inflammatory response syndrome. Continue to monitor. No evidence of infe ction. Follow up with infectious disease. 8. History of constipation. Continue current bowel regimen. 9. Gastrointestinal and deep vein thrombosis prophylaxis. Dictated By: TANYA GONZALEZ DO NR/NTS Conf#: [id number] DID#: [id number] CC: BRANDON MOHAMUD MD; TANAY GONZALEZ DO;*EndCC*
--- NOTE | 2018-11-29 13:26 | CONS ---
Assessment/Plan Assessment/Plan Hospital Course (Demo Recall) Patient is awake and looks comfortable no fevers overnight WBC yesterday was 11.9 no labs today Chest x-ray on admission revealed mild cardiomegaly Indwelling's right upper extremity AV fistula Physical examination this is a chronically ill appearing fragile elderly -[place] woman who is awake in no distress. Head atraumatic normocephalic neck is supple chest rise symmetrical breath sounds diminished bases heart S1-S2 abdomen soft bowel sounds present extremities with right upper extremity dressing clean dry intact Assessment: 1. Leukocytosis, likely reactive 2. End-stage renal disease 3. Clotted right arm AV fistula, status post thrombectomy with revision 11/29/15 4. Anemia of chronic disease Plan: Patient is stable we will keep her off antibiotics Consultation Date/Type/Reason Admit Date/Time November 29, 2018 at 09:16 Initial Consult Date 11/28/18 Type of Consult id Requesting Provider: TANYA GONZALEZ DO Date/Time of Note DATE: 11/29/18 TIME: 13:24 Exam/Review of Systems Exam Vitals Vital Signs Date Temp Pulse Resp B/P (MAP) Pulse Ox O2 O2 Flow FiO2 Time Delivery Rate 11/29/18 60 102/54 10:00 (70) 11/29/18 98.8 16 94 08:00 11/28/18 Nasal 2.0 23:00 Cannula Intake and Output 11/28/18 11/28/18 11/29/18 1515:00 23:00 07:00 IntakeIntake Total 300 ml OutputOutput Total 30 ml BalanceBalance 270 ml Results Result Diagram: 11/28/18 0539 11/28/18 0539 Results 24hrs Laboratory Tests Test 11/28/18 17:48 11/28/18 23:18 11/29/18 08:19 11/29/18 12:19 Bedside Glucose 90 139 184 204 Medications Medication Current Medications Acetaminophen (Tylenol Tab) 650 mg Q6H PRN PO MILD PAIN(1-3)OR ELEVATED TEMP; Start 11/27/18 at 18:30 Aspirin (Halfprin) 81 mg DAILY PO Last administered on 11/29/18at 08:45; Admin D ose 81 MG; Start 11/28/18 at 09:00 Atorvastatin Calcium (Lipitor) 40 mg QHS PO Last administered on 11/28/18at 23:20; Admin Dose 40 MG; Start 11/27/18 at 21:00 Bisacodyl (Dulcolax Supp) 10 mg Q48H [place] ; Start 11/27/18 at 18:30 Calcitriol (Rocaltrol) 0.25 mcg DAILY PO Last administered on 11/29/18 08:45; Admin Dose 0.25 MCG; Start 11/28/18 at 09:00 EZETIMIBE (Zetia) 10 mg DAILY PO Last administered on 11/29/18 08:45; Admin Dose 10 MG; Start 11/28/18 at 09:00 Famotidine (Pepcid) 20 mg DAILY PO Last administered on 11/29/18 08:45; Admin Dose 20 MG; Start 11/28/18 at 09:00 Folic Acid (Folic Acid) 1 mg DAILY PO Last administered on 11/29/18 08:45; Admin Dose 1 MG; Start 11/28/18 at 09:00 Lisinopril (Zestril) 20 mg DAILY PO Last administered on 11/28/18 08:56; Admin Dose 20 MG; Start 11/28/18 at 09:00 Metoprolol Succinate (Toprol Xl) 100 mg DAILY PO Last administered on 11/28/18 08:56; Admin Dose 100 MG; Start 11/28/18 at 09:00 Senna (Senokot) 1 tab QHS PO Last administered on 11/28/18at 23:20; Admin Dose 1 TAB; Start 11/27/18 at 21:00 Miscellaneous Information (Pending [facility] Order For Wound Care) This patient tarango... PRN PRN XX WOUND CARE; Start 11/27/18 at 23:00 Heparin Sodium (Porcine) (Heparin (5000 Units/1ml)) 5,000 unit Q12 SC Last administered on 11/28/18at 08:52; Admin Dose 5,000 UNIT; Start 11/27/18 at 22:55 Miscellaneous Information 1 ea NOTE XX ; Start 11/28/18 at 08:00 Glucose (Glutose) 15 gm Q15M PRN PO DECREASED GLUCOSE; Start 11/28/18 at 08:00 Glucose (Glutose) 22.5 gm Q15M PRN PO DECREASED GLUCOSE; Start 11/28/18 at 08:00 Dextrose (D50w Syringe) 25 ml Q15M PRN IV DECREASED GLUCOSE; Start 11/28/18 at 08:00 Dextrose (D50w Syringe) 50 ml Q15M PRN IV DECREASED GLUCOSE; Start 11/28/18 at 08:00 Glucagon (Glucagen) 1 mg Q15M PRN IM DECREASED GLUCOSE; Start 11/28/18 at 08:00 Glucose (Glutose) 15 gm Q15M PRN BUCCAL DECREASED GLUCOSE; Start 11/28/18 at 08:00 Insulin Aspart (Novolog Insulin Pen) NOVOLOG *MILD* ALGORITHM WITH MEALS BEDTIME SC Last administered on 11/29/18at 12:22; Admin Dose 2 UNIT; Start 11/29/18 at 08:00 Trazodone HCl (Desyrel) 50 mg HS PRN PO insomnia; Start 11/29/18 at 08:00 Amiodarone HCl (Cordarone) 100 mg DAILY PO ; Start 11/30/18 at 09:00 WALLY DOUGHERTY NP November 29, 2018 13:26
[2018-11-29 14:00] VITALS: BP 112/52; PULSE 65; RESP 20
--- NOTE | 2018-11-29 14:36 | PAC ---
Date/Time of Note Date/Time of Note DATE: 11/29/18 TIME: 14:36 Post-Anesthesia Notes Post-Anesthesia Note Last documented vital signs Vital Signs Date Temp Pulse Resp B/P (MAP) Pulse Ox O2 O2 Flow FiO2 Time Delivery Rate 11/29/18 98.7 60 102/54 95 13:00 (70) 11/29/18 98.8 16 94 08:00 11/28/18 Nasal 2.0 23:00 Cannula Activity: WNL Respiratory function: WNL Cardiovascular function: WNL Mental status: Baseline Pain reasonably controlled: Yes Hydration appropriate: Yes Nausea/Vomiting absent: Yes REBA AMADO November 29, 2018 14:36
[2018-11-29] MEDS: BISACODYL 10 MG SUPP PR SCH (17:45)
--- NOTE | 2018-11-29 17:57 | QN ---
Documentation Comment As Physician Advisor I have reviewed the chart and have determined that as of today, this patient continues to receive medically necessary care required for the diagnosis and treatment of illness or injury. There has been no unreasonable delay in the rendering of medically necessary services, and medically necessary care has required a length of stay greater than two midnights. Additional information gained during the stay now suggests this patient should have been classified as an inpatient at the time of admission, and I will change the status to inpatient to reflect that medical judgment. Besides the notes from the medical providers, the following information was used in this determination: AV fistula in need of revision Comorbidities including ESRD, diabetes, and hypertension Please call me at [phone] with questions. OLYA YU MD November 29, 2018 17:57
[2018-11-29] MEDS: ATORVASTATIN 40 MG TAB PO SCH (21:35)
[2018-11-29] MEDS: SENNA TAB PO SCH (21:35)
[2018-11-29 22:19] VITALS: BP 107/44; PULSE 59; RESP 18
[2018-11-30] VITALS (14 sets, daily range): BP systolic 79–139; BP diastolic 48–74; PULSE 56–82; RESP 16–20
[2018-11-30] MEDS ORDERED: DEXTROSE 5%-0.45% NACL 1,000 ML IV SCH (08:00)
--- NOTE | 2018-11-30 08:15 | PN ---
DATE: 11/30/2018 SUBJECTIVE: The patient's AV fistula is clotted. Unable to do hemodialysis. I spoke with vascular surgeon, Dr. Mohamud, who states the patient should have a Perm-A-Cath placement. The patient will require a new AV fistula placement. No other events noted. OBJECTIVE: VITAL SIGNS: Blood pressure is 112/52, pulse 65, respirations 20, temperature 97.6. HEENT: Head is normocephalic. NECK: Supple. HEART: Regular rate. LUNGS: Show diminished breath sounds at the base. ABDOMEN: Soft, nontender to palpation without rebound or guarding. EXTREMITIES: Negative for clubbing, cyanosis, no edema. DERMATOLOGIC: No rashes. MUSCULOSKELETAL: No joint effusion. NEUROLOGIC: No change in exam. MEDICATIONS: The patient's medications have been reviewed. LABORATORY DATA: Currently pending. ASSESSMENT AND PLAN: 1. End-stage renal disease. The patient's AV fistula remains clotted despite AV fistula repair. Th e patient will require access, possible Perm-A-Cath placement today by interventional radiology or Dr Belinda Mohamud. Once Perm-A-Cath is placed, the patient will have hemodialysis. 2. Anemia. Continue to monitor hemoglobin and hematocrit levels. Continue Epogen as needed. 3. Mineral bone disorder, monitor calcium and phosphorus levels. 4. Hypertension. Continue current blood pressure regimen. 5. Arrhythmia. Continue to monitor. Follow up with cardiology. 6. Dyslipidemia. Continue statin therapy. 7. Leukocytosis. Continue to monitor. Follow up with Infectious Disease. No evidence of infection at this time. 8. History of constipation. Continue current bowel regimen. 9. Gastrointestinal and deep vein thrombosis prophylaxis. Dictated By: TANYA GONZALEZ DO NR/NTS Conf#: [id number] DID#: [id number] CC: BRANDON MOHAMUD MD; TANYA GONZALEZ DO;*EndCC*
[2018-11-30] MEDS: ASPIRIN (EC) 81 MG TAB PO SCH (09:00)
[2018-11-30] MEDS: INSULIN ASPART [NOVOLOG] 3 ML PEN SC SCH ×4 (09:00→21:00)
[2018-11-30] MEDS: LISINOPRIL 20 MG TAB PO SCH ×2 (09:00→12:22)
[2018-11-30] MEDS: HEPARIN 5,000 UNIT/1 ML VIAL SC SCH ×2 (09:00→21:00)
[2018-11-30] MEDS: AMIODARONE 200 MG TAB PO SCH ×2 (09:00→12:21)
[2018-11-30] MEDS: METOPROLOL (XL) 100 MG TAB PO SCH ×2 (09:00→12:21)
[2018-11-30] MEDS: CALCITRIOL 0.25 MCG CAP PO SCH (09:14)
[2018-11-30] MEDS: EZETIMIBE 10 MG TAB PO SCH (09:14)
[2018-11-30] MEDS: FOLIC ACID 1 MG TAB PO SCH (09:15)
[2018-11-30] MEDS: FAMOTIDINE 20 MG TAB PO SCH (09:15)
--- NOTE | 2018-11-30 10:57 | PN ---
Date/Time of Note Date/Time of Note DATE: 11/30/18 TIME: 10:56 Assessment/Plan VTE Prophylaxis Risk score (from Nsg)>0 risk: 5 SCD applied (from Nsg): Yes Pharmacological prophylaxis: heparin Lines/Catheters IV Catheter Type (from Nrs): Saline Lock Urinary Cath still in place: No Assessment/Plan Hospital Course SUBJECTIVE: The patient's AV fistula is clotted. Unable to do hemodialysis. Vascular surgeon, Dr. Mohamud states the patient should have a Perm-A-Cath placement. The patient will require a new AV fistula placement. No other events noted. OBJECTIVE: HEENT: Head is normocephalic. NECK: Supple. HEART: Regular rate. LUNGS: Show diminished breath sounds at the base. ABDOMEN: Soft, nontender to palpation without rebound or guarding. EXTREMITIES: Negative for clubbing, cyanosis, no edema. DERMATOLOGIC: No rashes. MUSCULOSKELETAL: No joint effusion. NEUROLOGIC: No change in exam. ASSESSMENT AND PLAN: 1. End-stage renal disease. The patient's AV fistula remains clotted despite AV fistula repair. The patient will require access, possible Perm-A-Cath placement today by interventional radiology or Dr. Mohamud. Once Perm-A-Cath is placed, the patient will have hemodialysis. 2. Anemia. Continue to monitor hemoglobin and hematocrit levels. Continue Epogen as needed. 3. Mineral bone disorder, monitor calcium and phosphorus levels. 4. Hypertension. Continue current blood pressure regimen. 5. Arrhythmia. Continue to monitor. Follow up with cardiology. 6. Dyslipidemia. Continue statin therapy. 7. Leukocytosis. Continue to monitor. Follow up with Infectious Disease. No evidence of infection at this time. 8. History of constipation. Continue current bowel regimen. 9. Gastrointestinal and deep vein thrombosis prophylaxis. Result Diagram: 11/30/18 0823 11/30/18 0823 Results 24hrs Laboratory Tests Test 11/29/18 12:19 11/29/18 17:42 11/29/18 21:33 11/30/18 08:23 Bedside Glucose 204 245 H 169 White Blood Count 10.2 Red Blood Count 4.18 L Hemoglobin 11.3 L Hematocrit 37.2 Mean Corpuscular 89.0 Volume Mean Corpuscular 27.0 L Hemoglobin Mean Corpuscular 30.4 L Hemoglobin Concent Red Cell 15.4 H Distribution Width Platelet Count 385 Mean Platelet Volume 10.1 Immature 0.600 H Granulocytes % Neutrophils % 87.5 H Lymphocytes % 5.2 L Monocytes % 6.0 Eosinophils % 0.4 Basophils % 0.3 Nucleated Red Blood 0.0 Cells % Immature 0.060 H Granulocytes # Neutrophils # 9.0 H Lymphocytes # 0.5 L Monocytes # 0.6 Eosinophils # 0.0 Basophils # 0.0 Nucleated Red Blood 0.0 Cells # Sodium Level 141 Potassium Level 6.0 H Chloride Level 97 Carbon Dioxide Level 25 Anion Gap 19 H Blood Urea Nitrogen 82 H Creatinine 13.12 H Est Glomerular Filtrat Rate mL/min Glucose Level 100 Calcium Level 9.5 Phosphorus Level 7.6 H Magnesium Level 2.9 H Thyroid Stimulating 0.890 Hormone (TSH) Free Thyroxine 2.58 H Hepatitis B Surface NEGATIVE Antigen Hepatitis B Surface POSITIVE H Antibody Hepatitis B Core NEGATIVE Total Antibody Test 11/30/18 08:43 11/30/18 08:58 11/30/18 09:12 11/30/18 09:29 Bedside Glucose 52 L 50 L 182 153 Exam/Review of Systems Exam Vitals Vital Signs Date Temp Pulse Resp B/P (MAP) Pulse Ox O2 O2 Flow FiO2 Time Delivery Rate 11/30/18 98.4 80 20 137/61 94 08:00 (86) 11/28/18 Nasal 2.0 23:00 Cannula Intake and Output 11/29/18 11/29/18 11/30/18 1515:00 23:00 07:00 IntakeIntake Total 490 ml BalanceBalance 490 ml Results Results 24hrs Laboratory Tests Test 11/29/18 12:19 11/29/18 17:42 11/29/18 21:33 11/30/18 08:23 Bedside Glucose 204 245 H 169 White Blood Count 10.2 Red Blood Count 4.18 L Hemoglobin 11.3 L Hematocrit 37.2 Mean Corpuscular 89.0 Volume Mean Corpuscular 27.0 L Hemoglobin Mean Corpuscular 30.4 L Hemoglobin Concent Red Cell 15.4 H Distribution Width Platelet Count 385 Mean Platelet Volume 10.1 Immature 0.600 H Granulocytes % Neutrophils % 87.5 H Lymphocytes % 5.2 L Monocytes % 6.0 Eosinophils % 0.4 Basophils % 0.3 Nucleated Red Blood 0.0 Cells % Immature 0.060 H Granulocytes # Neutrophils # 9.0 H Lymphocytes # 0.5 L Monocytes # 0.6 Eosinophils # 0.0 Basophils # 0.0 Nucleated Red Blood 0.0 Cells # Sodium Level 141 Potassium Level 6.0 H Chloride Level 97 Carbon Dioxide Level 25 Anion Gap 19 H Blood Urea Nitrogen 82 H Creatinine 13.12 H Est Glomerular Filtrat Rate mL/min Glucose Level 100 Calcium Level 9.5 Phosphorus Level 7.6 H Magnesium Level 2.9 H Thyroid Stimulating 0.890 Hormone (TSH) Free Thyroxine 2.58 H Hepatitis B Surface NEGATIVE Antigen Hepatitis B Surface POSITIVE H Antibody Hepatitis B Core NEGATIVE Total Antibody Test 11/30/18 08:43 11/30/18 08:58 11/30/18 09:12 11/30/18 09:29 Bedside Glucose 52 L 50 L 182 153 Medications Medication Current Medications Acetaminophen (Tylenol Tab) 650 mg Q6H PRN PO MILD PAIN(1-3)OR ELEVATED TEMP; Start 11/27/18 at 18:30 Aspirin (Halfprin) 81 mg DAILY PO Last administered on 11/29/18 08:45; Admin Dose 81 MG; Start 11/28/18 at 09:00 Atorvastatin Calcium (Lipitor) 40 mg QHS PO Last administered on 11/29/18 21:35; Admin Dose 40 MG; Start 11/27/18 at 21:00 Bisacodyl (Dulcolax Supp) 10 mg Q48H [place] ; Start 11/27/18 at 18:30 Calcitriol (Rocaltrol) 0.25 mcg DAILY PO Last administered on 11/30/18 09:14; Admin Dose 0.25 MCG; Start 11/28/18 at 09:00 EZETIMIBE (Zetia) 10 mg DAILY PO Last administered on 11/30/18at 09:14; Admin Dose 10 MG; Start 11/28/18 at 09:00 Famotidine (Pepcid) 20 mg DAILY PO Last administered on 11/30/18 09:15; Admin Dose 20 MG; Start 11/28/18 at 09:00 Folic Acid (Folic Acid) 1 mg DAILY PO Last administered on 11/30/18 09:15; Admin Dose 1 MG; Start 11/28/18 at 09:00 Lisinopril (Zestril) 20 mg DAILY PO Last administered on 11/28/18 08:56; Admin Dose 20 MG; Start 11/28/18 at 09:00 Metoprolol Succinate (Toprol Xl) 100 mg DAILY PO Last administered on 11/28/18at 08:56; Admin Dose 100 MG; Start 11/28/18 at 09:00 Senna (Senokot) 1 tab QHS PO Last administered on 11/29/18at 21:35; Admin Dose 1 TAB; Start 11/27/18 at 21:00 [facility] This patient tarango... PRN PRN XX WOUND CARE; Start 11/27/18 at 23:00 Heparin Sodium (Porcine) (Heparin (5000 Units/1ml)) 5,000 unit Q12 SC Last administered on 11/28/18at 08:52; Admin Dose 5,000 UNIT; Start 11/27/18 at 22:55 Miscellaneous Information 1 ea NOTE XX ; Start 11/28/18 at 08:00 Glucose (Glutose) 15 gm Q15M PRN PO DECREASED GLUCOSE; Start 11/28/18 at 08:00 Glucose (Glutose) 22.5 gm Q15M PRN PO DECREASED GLUCOSE; Start 11/28/18 at 08:00 Dextrose (D50w Syringe) 25 ml Q15M PRN IV DECREASED GLUCOSE Last administered on 11/30/18at 08:54; Admin Dose 25 ML; Start 11/28/18 at 08:00 Dextrose (D50w Syringe) 50 ml Q15M PRN IV DECREASED GLUCOSE; Start 11/28/18 at 08:00 Glucagon (Glucagen) 1 mg Q15M PRN IM DECREASED GLUCOSE; Start 11/28/18 at 08:00 Glucose (Glutose) 15 gm Q15M PRN BUCCAL DECREASED GLUCOSE; Start 11/28/18 at 08:00 Trazodone HCl (Desyrel) 50 mg HS PRN PO insomnia; Start 11/29/18 at 08:00 Amiodarone HCl (Cordarone) 100 mg DAILY PO ; Start 11/30/18 at 09:00 Dextrose/Sodium Chloride 1,000 ml @ 50 mls/hr Q20H IV Last administered on 11/30/18at 08:51; Admin Dose 50 MLS/HR; Start 11/30/18 at 08:00 Insulin Aspart (Novolog Insulin Pen) NOVOLOG *MILD* ALGORI... Q4 SC ; Start 11/30/18 at 09:00 LOGAN COLON November 30, 2018 10:57
--- NOTE | 2018-11-30 12:42 | CONS ---
Assessment/Plan Assessment/Plan Hospital Course (Demo Recall) Patient is awake and looks comfortable no fevers overnight Chest x-ray on admission revealed mild cardiomegaly Indwelling's right upper extremity AV fistula Physical examination this is a chronically ill appearing fragile elderly -[place] woman who is awake in no distress. Head atraumatic normocephalic neck is supple chest rise symmetrical breath sounds diminished bases heart S1-S2 abdomen soft bowel sounds present extremities with right upper extremity dressing clean dry intact Assessment: 1. Leukocytosis, likely reactive 2. End-stage renal disease 3. Clotted right arm AV fistula, status post thrombectomy with revision 11/29/15 4. Anemia of chronic disease Plan: Patient is stable, wbc decreased to wnl, continue observing off antibiotics Consultation Date/Type/Reason Admit Date/Time November 29, 2018 at 09:16 Initial Consult Date 11/28/18 Type of Consult id Requesting Provider: TANYA GONZALEZ DO Date/Time of Note DATE: 11/30/18 TIME: 12:42 Exam/Review of Systems Exam Vitals Vital Signs Date Temp Pulse Resp B/P (MAP) Pulse Ox O2 O2 Flow FiO2 Time Delivery Rate 11/30/18 98.4 80 20 137/61 94 08:00 (86) 11/28/18 Nasal 2.0 23:00 Cannula Intake and Output 11/29/18 11/29/18 11/30/18 1515:00 23:00 07:00 IntakeIntake Total 490 ml BalanceBalance 490 ml Results Result Diagram: 11/30/18 0823 11/30/18 0823 Results 24hrs Laboratory Tests Test 11/29/18 17:42 11/29/18 21:33 11/30/18 08:23 11/30/18 08:43 Bedside Glucose 245 H 169 52 L White Blood Count 10.2 Red Blood Count 4.18 L Hemoglobin 11.3 L Hematocrit 37.2 Mean Corpuscular 89.0 Volume Mean Corpuscular 27.0 L Hemoglobin Mean Corpuscular 30.4 L Hemoglobin Concent Red Cell 15.4 H Distribution Width Platelet Count 385 Mean Platelet Volume 10.1 Immature 0.600 H Granulocytes % Neutrophils % 87.5 H Lymphocytes % 5.2 L Monocytes % 6.0 Eosinophils % 0.4 Basophils % 0.3 Nucleated Red Blood 0.0 Cells % Immature 0.060 H Granulocytes # Neutrophils # 9.0 H Lymphocytes # 0.5 L Monocytes # 0.6 Eosinophils # 0.0 Basophils # 0.0 Nucleated Red Blood 0.0 Cells # Sodium Level 141 Potassium Level 6.0 H Chloride Level 97 Carbon Dioxide Level 25 Anion Gap 19 H Blood Urea Nitrogen 82 H Creatinine 13.12 H Est Glomerular Filtrat Rate mL/min Glucose Level 100 Calcium Level 9.5 Phosphorus Level 7.6 H Magnesium Level 2.9 H Thyroid Stimulating 0.890 Hormone (TSH) Free Thyroxine 2.58 H Hepatitis B Surface NEGATIVE Antigen Hepatitis B Surface POSITIVE H Antibody Hepatitis B Core NEGATIVE Total Antibody Test 11/30/18 08:58 11/30/18 09:12 11/30/18 09:29 11/30/18 12:40 Bedside Glucose 50 L 182 153 93 Medications Medication Current Medications Acetaminophen (Tylenol Tab) 650 mg Q6H PRN PO MILD PAIN(1-3)OR ELEVATED TEMP; Start 11/27/18 at 18:30 Aspirin (Halfprin) 81 mg DAILY PO Last administered on 11/29/18 08:45; Admin Dose 81 MG; Start 11/28/18 at 09:00 Atorvastatin Calcium (Lipitor) 40 mg QHS PO Last administered on 11/29/18at 21:35; Admin Dose 40 MG; Start 11/27/18 at 21:00 Bisacodyl (Dulcolax Supp) 10 mg Q48H [place] ; Start 11/27/18 at 18:30 Calcitriol (Rocaltrol) 0.25 mcg DAILY PO Last administered on 11/30/18 09:14; Admin Dose 0.25 MCG; Start 11/28/18 at 09:00 EZETIMIBE (Zetia) 10 mg DAILY PO Last administered on 11/30/18 09:14; Admin Dose 10 MG; Start 11/28/18 at 09:00 Famotidine (Pepcid) 20 mg DAILY PO Last administered on 11/30/18 09:15; Admin Dose 20 MG; Start 11/28/18 at 09:00 Folic Acid (Folic Acid) 1 mg DAILY PO Last administered on 11/30/18 09:15; Admin Dose 1 MG; Start 11/28/18 at 09:00 Lisinopril (Zestril) 20 mg DAILY PO Last administered on 11/30/18 12:22; Admin Dose 20 MG; Start 11/28/18 at 09:00 Metoprolol Succinate (Toprol Xl) 100 mg DAILY PO Last administered on 11/30/18at 12:21; Admin Dose 100 MG; Start 11/28/18 at 09:00 Senna (Senokot) 1 tab QHS PO Last administered on 11/29/18at 21:35; Admin Dose 1 TAB; Start 11/27/18 at 21:00 [facility] This patient tarango... PRN PRN XX WOUND CARE; Start 11/27/18 at 23:00 Heparin Sodium (Porcine) (Heparin (5000 Units/1ml)) 5,000 unit Q12 SC Last administered on 11/28/18at 08:52; Admin Dose 5,000 UNIT; Start 11/27/18 at 22:55 Miscellaneous Information 1 ea NOTE XX ; Start 11/28/18 at 08:00 Glucose (Glutose) 15 gm Q15M PRN PO DECREASED GLUCOSE; Start 11/28/18 at 08:00 Glucose (Glutose) 22.5 gm Q15M PRN PO DECREASED GLUCOSE; Start 11/28/18 at 08:00 Dextrose (D50w Syringe) 25 ml Q15M PRN IV DECREASED GLUCOSE Last administered on 11/30/18at 08:54; Admin Dose 25 ML; Start 11/28/18 at 08:00 Dextrose (D50w Syringe) 50 ml Q15M PRN IV DECREASED GLUCOSE; Start 11/28/18 at 08:00 Glucagon (Glucagen) 1 mg Q15M PRN IM DECREASED GLUCOSE; Start 11/28/18 at 08:00 Glucose (Glutose) 15 gm Q15M PRN BUCCAL DECREASED GLUCOSE; Start 11/28/18 at 08:00 Trazodone HCl (Desyrel) 50 mg HS PRN PO insomnia; Start 11/29/18 at 08:00 Amiodarone HCl (Cordarone) 100 mg DAILY PO Last administered on 11/30/18at 12:21; Admin Dose 100 MG; Start 11/30/18 at 09:00 Dextrose/Sodium Chloride 1,000 ml @ 50 mls/hr Q20H IV Last administered on 11/30/18at 08:51; Admin Dose 50 MLS/HR; Start 11/30/18 at 08:00 Insulin Aspart (Novolog Insulin Pen) NOVOLOG *MILD* ALGORI... Q4 SC ; Start 11/30/18 at 09:00 WALLY DOUGHERTY NP November 30, 2018 12:42
--- NOTE | 2018-11-30 14:28 | CONS ---
Consult Date/Type/Reason Admit Date/Time November 29, 2018 at 09:16 Initial Consult Date 11/28/18 Type of Consultation: cv Requesting Provider: TANYA GONZALEZ DO Date/Time of Note DATE: 11/30/18 TIME: 14:26 Subjective Interventional cardiology follow-up progress note Subjective: Discussed with staff. Discussed with physicians. no reports of any chest pain or pressure Status post AV fistula repair November 28 Objective: General: Thin cachectic looking female in no acute distress HEENT: NC/AT. pupils are equal. round. NECK: . no stridor. CV: RRR. systolic murmur; no gallop or rubs. PULM: no wheezing or rhonchi. GI: SOFT, NT, ND, no rebound or guarding Extremity: Significant B/L LE edema. no clubbing. neuro: Comfortably sleeping. Psych: Appears calm now rectal: deferred EKG was personally showed normal sinus rhythm. Nonspecific T wave abnormalities Echocardiogram done 11/28/2018 was personally reviewed which shows: Normal left ventricular systolic function. Normal left ventricular cavity size. Normal left ventricular wall thickness. Ejection fraction is visually estimated at 55 %. Tissue Doppler/Mitral Doppler indices are consistent with pseudonormalization with mildly elevated left atrial pressure (Stage II diastolic dysfunction). There is mild enlargement of right atrium. Mild mitral leaflet calcification. Mild mitral annular calcification. Trace mitral regurgitation. No hemodynamically significant aortic stenosis by doppler. Aortic cusps appear mildly calcified. Trileaflet aortic valve. Normal appearance of the tricuspid valve. Estimated peak PA systolic pressure 43 mmHg. There is mild tricuspid regurgitation. Normal size and normal respiratory collapse consistent with normal right atrial pressure. Objective Vitals Vital Signs Date Temp Pulse Resp B/P (MAP) Pulse Ox O2 O2 Flow FiO2 Time Delivery Rate 11/30/18 98.4 80 20 137/61 94 08:00 (86) 11/28/18 Nasal 2.0 23:00 Cannula Intake and Output 11/29/18 11/29/18 11/30/18 1414:59 22:59 06:59 IntakeIntake Total 490 ml BalanceBalance 490 ml Results/Medications Result Diagram: 11/30/18 0823 11/30/18 0823 Results 24 hrs Laboratory Tests Test 11/29/18 17:42 11/29/18 21:33 11/30/18 08:23 11/30/18 08:43 Bedside Glucose 245 H 169 52 L White Blood Count 10.2 Red Blood Count 4.18 L Hemoglobin 11.3 L Hematocrit 37.2 Mean Corpuscular 89.0 Volume Mean Corpuscular 27.0 L Hemoglobin Mean Corpuscular 30.4 L Hemoglobin Concent Red Cell 15.4 H Distribution Width Platelet Count 385 Mean Platelet Volume 10.1 Immature 0.600 H Granulocytes % Neutrophils % 87.5 H Lymphocytes % 5.2 L Monocytes % 6.0 Eosinophils % 0.4 Basophils % 0.3 Nucleated Red Blood 0.0 Cells % Immature 0.060 H Granulocytes # Neutrophils # 9.0 H Lymphocytes # 0.5 L Monocytes # 0.6 Eosinophils # 0.0 Basophils # 0.0 Nucleated Red Blood 0.0 Cells # Sodium Level 141 Potassium Level 6.0 H Chloride Level 97 Carbon Dioxide Level 25 Anion Gap 19 H Blood Urea Nitrogen 82 H Creatinine 13.12 H Est Glomerular Filtrat Rate mL/min Glucose Level 100 Calcium Level 9.5 Phosphorus Level 7.6 H Magnesium Level 2.9 H Thyroid Stimulating 0.890 Hormone (TSH) Free Thyroxine 2.58 H Hepatitis B Surface NEGATIVE Antigen Hepatitis B Surface POSITIVE H Antibody Hepatitis B Core NEGATIVE Total Antibody Test 11/30/18 08:58 11/30/18 09:12 11/30/18 09:29 11/30/18 12:40 Bedside Glucose 50 L 182 153 93 Home Meds Reported Medications Insulin Regular, Human (Humulin R) 100 Unit/1 Ml Vial, 0 IJ SLIDING SCALE, VIAL IF BS 71-150=O UNIT <70 GIVE 8OZ ORANGE JUICE AND CALL MD IF BS 151-200=2 UNITS,201-250=4 UNITS,251-300=8 UNITS,351-400=10 UNITS,>400=12 UNITS AND CALL MD. 11/27/18 Trazodone Hcl* (Trazodone Hcl*) 50 Mg Tablet, 50 MG PO QHS, #30 TAB 11/27/18 Tadalafil (Cialis) 20 Mg Tablet, 20 MG PO DAILY, TAB 11/27/18 Sennosides* (Senna Lax*) 8.6 Mg Tablet, 1 TAB PO QHS, TAB 11/27/18 Nut.tx.impaired Renal Fxn,Soy (NEPRO CARB STEADY) 237 Ml Liquid, 237 ML PO DAILY 11/27/18 Metoprolol Succinate* (Toprol XL*) 100 Mg Tab.sr.24h, 100 MG PO DAILY, #30 TAB HOLD FOR SBP<110 OR HR<60 11/27/18 Lorazepam* (Lorazepam*) 0.5 Mg Tablet, 0.5 MG PO HS PRN for NEEDED, TAB 11/27/18 Lisinopril* (Lisinopril*) 20 Mg Tablet, 20 MG PO DAILY, #30 TAB HOLD IF SBP<110 OR HR<60 11/27/18 Heparin Sodium,Porcine/Pf (HEPARIN SOD 5,000 UNIT/ 0.5 ML) 5,000 Unit/0.5 Ml Via l, 5000 UNIT IJ DAILY, VIAL 11/27/18 Glucagon,Human Recombinant (Glucagon Emergency Kit) 1 Mg Kit, 1 MG IJ NEEDED, KIT 11/27/18 Glipizide* (Glipizide*) 5 Mg Tablet, 5 MG PO AC BREAKFAST, TAB 11/27/18 Folic Acid* (Folic Acid*) 1 Mg Tablet, 1 MG PO Q MON,FRI, TAB 11/27/18 Mineral Oil* (Fleet* Mineral Oil Enema) Unknown Strength Oil, 118 ML MT Q72H, ENEMA 11/27/18 Febuxostat* (Uloric*) 40 Mg Tablet, 40 MG PO DAILY PRN for NEEDED, TAB 11/27/18 Famotidine* (Famotidine*) 20 Mg Tablet, 20 MG PO DAILY, #30 TAB 11/27/18 Ezetimibe* (Zetia*) 10 Mg Tablet, 10 MG PO DAILY, TAB 11/27/18 Bisacodyl (Dulcolax) 10 Mg Supp.rect, 10 MG RC Q48H, SUPP.RECT 11/27/18 Darbepoetin Madhu in [place]ysorbat (Aranesp) 25 Mcg/0.42 Ml Syringe, 75 MCG IJ Q TUES 11/27/18 Calcitriol* (Rocaltrol*) 0.25 Mcg Capsule, 0.25 MCG PO DAILY, CAP 11/27/18 Atorvastatin* (Atorvastatin*) 40 Mg Tablet, 40 MG PO QHS, #30 TAB 11/27/18 Aspirin* (Aspirin* EC) 81 Mg Tablet.dr, 81 MG PO DAILY, TAB 11/27/18 Amiodarone Hcl* (Amiodarone Hcl*) 200 Mg Tablet, 200 MG PO DAILY, #30 TAB 11/27/18 Acetaminophen* (Acetaminophen*) 650 Mg Tablet, 650 MG PO Q6H PRN for PAIN AND OR ELEVATED TEMP, #30 TAB 11/27/18 Medications Current Medications Acetaminophen (Tylenol Tab) 650 mg Q6H PRN PO MILD PAIN(1-3)OR ELEVATED TEMP; Start 11/27/18 at 18:30 Aspirin (Halfprin) 81 mg DAILY PO Last administered on 11/29/18at 08:45; Admin Dose 81 MG; Start 11/28/18 at 09:00 Atorvastatin Calcium (Lipitor) 40 mg QHS PO Last administered on 11/29/18 21:35; Admin Dose 40 MG; Start 11/27/18 at 21:00 Bisacodyl (Dulcolax Supp) 10 mg Q48H MT ; Start 11/27/18 at 18:30 Calcitriol (Rocaltrol) 0.25 mcg DAILY PO Last administered on 11/30/18 09:14; Admin Dose 0.25 MCG; Start 11/28/18 at 09:00 EZETIMIBE (Zetia) 10 mg DAILY PO Last administered on 11/30/18 09:14; Admin Dose 10 MG; Start 11/28/18 at 09:00 Famotidine (Pepcid) 20 mg DAILY PO Last administered on 11/30/18 09:15; Admin Dose 20 MG; Start 11/28/18 at 09:00 Folic Acid (Folic Acid) 1 mg DAILY PO Last administered on 11/30/18 09:15; Admin Dose 1 MG; Start 11/28/18 at 09:00 Lisinopril (Zestril) 20 mg DAILY PO Last administered on 11/30/18 12:22; Admin Dose 20 MG; Start 11/28/18 at 09:00 Metoprolol Succinate (Toprol Xl) 100 mg DAILY PO Last administered on 11/30/18 12:21; Admin Dose 100 MG; Start 11/28/18 at 09:00 Senna (Senokot) 1 tab QHS PO Last administered on 11/29/18 21:35; Admin Dose 1 TAB; Start 11/27/18 at 21:00 Miscellaneous Information (Pending [facility]) This patient tarango... PRN PRN XX WOUND CARE; Start 11/27/18 at 23:00 Heparin Sodium (Porcine) (Heparin (5000 Units/1ml)) 5,000 unit Q12 SC Last administered on 11/28/18at 08:52; Admin Dose 5,000 UNIT; Start 11/27/18 at 22:55 Miscellaneous Information 1 ea NOTE XX ; Start 11/28/18 at 08:00 Glucose (Glutose) 15 gm Q15M PRN PO DECREASED GLUCOSE; Start 11/28/18 at 08:00 Glucose (Glutose) 22.5 gm Q15M PRN PO DECREASED GLUCOSE; Start 11/28/18 at 08:00 Dextrose (D50w Syringe) 25 ml Q15M PRN IV DECREASED GLUCOSE Last administered on 11/30/18at 08:54; Admin Dose 25 ML; Start 11/28/18 at 08:00 Dextrose (D50w Syringe) 50 ml Q15M PRN IV DECREASED GLUCOSE; Start 11/28/18 at 08:00 Glucagon (Glucagen) 1 mg Q15M PRN IM DECREASED GLUCOSE; Start 11/28/18 at 08:00 Glucose (Glutose) 15 gm Q15M PRN BUCCAL DECREASED GLUCOSE; Start 11/28/18 at 08:00 Trazodone HCl (Desyrel) 50 mg HS PRN PO insomnia; Start 11/29/18 at 08:00 Amiodarone HCl (Cordarone) 100 mg DAILY PO Last administered on 11/30/18at 12:21; Admin Dose 100 MG; Start 11/30/18 at 09:00 Dextrose/Sodium Chloride 1,000 ml @ 50 mls/hr Q20H IV Last administered on 11/30/18at 08:51; Admin Dose 50 MLS/HR; Start 11/30/18 at 08:00 Insulin Aspart (Novolog Insulin Pen) NOVOLOG *MILD* ALGORI... Q4 SC ; Start 11/14 02/01 at 09:00 Assessment/Plan Hospital Course (Demo Recall) 1. History of possible arrhythmia possible proximal atrial fibrillation although detail is unclear. currently on amiodarone remains in sinus 2. Renal failure on dialysis 3. Hemodialysis access malfunction 4. Hypertension 5. Diabetes 6. Possible psych disorder 7. Incomplete data Recommendations: We will decrease the amiodarone 100 mg daily. consider stopping it later on if remains in NSR TSH was wnl Continue with the beta-sintia. Hemodialysis management as per renal Thank you for his referral we will continue to follow along with you as needed. JING GARAY MD [facility] JING GARAY MD November 30, 2018 14:28
[2018-11-30] MEDS ORDERED: HEPARIN 1000 UNITS/NS (A-LINE) 1,000 ML ONE (14:44)
[2018-11-30] MEDS ORDERED: LIDOCAINE 1% (MDV) 20 ML INJ ONE ×2 (14:44→17:16)
--- NOTE | 2018-11-30 14:49 | RADRPT ---
Vent Rate: 73 bpm RR Interval: 0 msec NC Interval: 164 msec QRS Duration: 76 msec QT Interval: 428 msec QTC Interval: 471 msec P-R-T Draper: 83 - 80 - 88 degrees Normal sinus rhythm Nonspecific T wave abnormality Prolonged QT Abnormal ECG Electronically Signed By: [facility]
[2018-11-30] MEDS ORDERED: MIDAZOLAM 1 MG/ML 2 ML INJ ONE (16:00)
[2018-11-30] MEDS ORDERED: HEPARIN 1000 UNITS/ML 10 ML INJ ONE ×2 (16:14→16:15)
[2018-11-30] MEDS: ATORVASTATIN 40 MG TAB PO SCH (21:28)
[2018-11-30] MEDS: SENNA TAB PO SCH (21:28)
[2018-12-01] VITALS (14 sets, daily range): BP systolic 84–117; BP diastolic 47–64; PULSE 60–80; RESP 1–18
[2018-12-01] MEDS ORDERED: ACCU-CHEK XX SCH (02:00)
[2018-12-01] MEDS: ACCU-CHEK XX SCH (02:00)
[2018-12-01] MEDS: INSULIN ASPART [NOVOLOG] 3 ML PEN SC SCH ×4 (08:00→21:00)
[2018-12-01] MEDS: METOPROLOL (XL) 100 MG TAB PO SCH (09:00)
[2018-12-01] MEDS: LISINOPRIL 20 MG TAB PO SCH (09:00)
[2018-12-01] MEDS: FAMOTIDINE 20 MG TAB PO SCH (09:00)
[2018-12-01] MEDS: AMIODARONE 200 MG TAB PO SCH (09:00)
[2018-12-01] MEDS: FOLIC ACID 1 MG TAB PO SCH (09:00)
[2018-12-01] MEDS: CALCITRIOL 0.25 MCG CAP PO SCH (09:01)
[2018-12-01] MEDS: MULTIVITAMINS THERAPEUTIC TAB PO SCH (09:01)
[2018-12-01] MEDS: ASPIRIN (EC) 81 MG TAB PO SCH (09:01)
[2018-12-01] MEDS: EZETIMIBE 10 MG TAB PO SCH (09:01)
[2018-12-01] MEDS: ASCORBIC ACID 500 MG TAB PO SCH (09:01)
[2018-12-01] MEDS: HEPARIN 5,000 UNIT/1 ML VIAL SC SCH (09:07)
--- NOTE | 2018-12-01 14:47 | CONS ---
Consultation Date/Type/Reason Admit Date/Time November 29, 2018 at 09:16 Initial Consult Date SUBJECTIVE: Patient is awake, alert, afebrile. No acute events over night. VS: stable T: 98.6 LABS: Reviewed. WBC-9.8 Chest x-ray on admission revealed mild cardiomegaly Indwelling's right upper extremity AV fistula Physical examination: GEN: this is a chronically ill appearing fragile elderly -Russian woman, who is awake in no distress. HENT: Head atraumatic normocephalic ;neck is supple PULM: chest rise symmetrical, breath sounds diminished bases Heart: S1-S2 Abdomen: soft, bowel sounds present Extremities: right upper extremity dressing clean dry intact, no cyanosis Assessment: 1. Leukocytosis, likely reactive 2. End-stage renal disease 3. Clotted right arm AV fistula, status post thrombectomy with revision 11/29/15 4. Anemia of chronic disease Plan: Patient is stable. WBC is WNL, no fevers. Continue observing off of antibiotics. Requesting Provider: TANYA GONZALEZ DO Date/Time of Note DATE: 12/01/18 TIME: 14:44 Exam/Review of Systems Exam Vitals Vital Signs Date Temp Pulse Resp B/P (MAP) Pulse Ox O2 O2 Flow FiO2 Time Delivery Rate 12/01/18 98.6 61 18 94/48 (63) 96 07:59 11/30/18 Room Air 20:44 11/28/18 2.0 23:00 Intake and Output 11/30/18 11/30/18 12/01/18 1515:00 23:00 07:00 IntakeIntake Total 675 ml 120 ml OutputOutput Total 784 ml BalanceBalance -109 ml 120 ml Results Result Diagram: 12/01/18 1316 12/01/18 1316 Results 24hrs Laboratory Tests Test 11/30/18 17:32 11/30/18 20:44 12/01/18 08:07 12/01/18 08:11 Bedside Glucose 84 70 34 *L 86 Test 12/01/18 12:00 12/01/18 13:16 Bedside Glucose 75 White Blood Count 9.8 Red Blood Count 4.47 Hemoglobin 12.1 Hematocrit 39.8 Mean Corpuscular 89.0 Volume Mean Corpuscular 27.1 L Hemoglobin Mean Corpuscular 30.4 L Hemoglobin Concent Red Cell 15.1 H Distribution Width Platelet Count 353 Mean Platelet Volume 10.2 Immature 0.300 Granulocytes % Neutrophils % 86.0 H Lymphocytes % 5.0 L Monocytes % 8.2 Eosinophils % 0.1 Basophils % 0.4 Nucleated Red Blood 0.0 Cells % Immature 0.030 Granulocytes # Neutrophils # 8.4 H Lymphocytes # 0.5 L Monocytes # 0.8 Eosinophils # 0.0 Basophils # 0.0 Nucleated Red Blood 0.0 Cells # Sodium Level 139 Potassium Level 6.2 *H Chloride Level 99 Carbon Dioxide Level 24 Anion Gap 16 H Blood Urea Nitrogen 43 #H Creatinine 8.87 #H Est Glomerular Filtrat Rate mL/min Glucose Level 120 Calcium Level 9.1 Phosphorus Level 5.8 H Magnesium Level 2.5 Medications Medication Current Medications Acetaminophen (Tylenol Tab) 650 mg Q6H PRN PO MILD PAIN(1-3)OR ELEVATED TEMP; Start 11/27/18 at 18:30 Aspirin (Halfprin) 81 mg DAILY PO Last administered on 12/01/18 09:01; Admin Dose 81 MG; Start 11/28/18 at 09:00 Atorvastatin Calcium (Lipitor) 40 mg QHS PO Last administered on 11/30/18 2 1:28; Admin Dose 40 MG; Start 11/27/18 at 21:00 Bisacodyl (Dulcolax Supp) 10 mg Q48H IA ; Start 11/27/18 at 18:30 Calcitriol (Rocaltrol) 0.25 mcg DAILY PO Last administered on 12/01/18 09:01; Admin Dose 0.25 MCG; Start 11/28/18 at 09:00 EZETIMIBE (Zetia) 10 mg DAILY PO Last administered on 12/01/18 09:01; Admin Dose 10 MG; Start 11/28/18 at 09:00 Famotidine (Pepcid) 20 mg DAILY PO Last administered on 12/01/18 09:00; Admin Dose 20 MG; Start 11/28/18 at 09:00 Folic Acid (Folic Acid) 1 mg DAILY PO Last administered on 12/01/18 09:00; Admin Dose 1 MG; Start 11/28/18 at 09:00 Lisinopril (Zestril) 20 mg DAILY PO Last administered on 11/30/18at 12:22; Admin Dose 20 MG; Start 11/28/18 at 09:00 Metoprolol Succinate (Toprol Xl) 100 mg DAILY PO Last administered on 11/30/18at 12:21; Admin Dose 100 MG; Start 11/28/18 at 09:00 Senna (Senokot) 1 tab QHS PO Last administered on 11/30/18at 21:28; Admin Dose 1 TAB; Start 11/27/18 at 21:00 Miscellaneous Information (Pending [facility] Order For Wound Care) This patient tarango... PRN PRN XX WOUND CARE; Start 11/27/18 at 23:00 Heparin Sodium (Porcine) (Heparin (5000 Units/1ml)) 5,000 unit Q12 SC Last administered on 12/01/18at 09:07; Admin Dose 5,000 UNIT; Start 11/27/18 at 22:55 Miscellaneous Information 1 ea NOTE XX ; Start 11/28/18 at 08:00 Glucose (Glutose) 15 gm Q15M PRN PO DECREASED GLUCOSE; Start 11/28/18 at 08:00 Glucose (Glutose) 22.5 gm Q15M PRN PO DECREASED GLUCOSE; Start 11/28/18 at 08:00 Dextrose (D50w Syringe) 25 ml Q15M PRN IV DECREASED GLUCOSE Last administered on 11/30/18at 08:54; Admin Dose 25 ML; Start 11/28/18 at 08:00 Dextrose (D50w Syringe) 50 ml Q15M PRN IV DECREASED GLUCOSE; Start 11/28/18 at 08:00 Glucagon (Glucagen) 1 mg Q15M PRN IM DECREASED GLUCOSE; Start 11/28/18 at 08:00 Glucose (Glutose) 15 gm Q15M PRN BUCCAL DECREASED GLUCOSE; Start 11/28/18 at 08:00 Trazodone HCl (Desyrel) 50 mg HS PRN PO insomnia; Start 11/29/18 at 08:00 Amiodarone HCl (Cordarone) 100 mg DAILY PO Last administered on 11/30/18at 12:21; Admin Dose 100 MG; Start 11/30/18 at 09:00 Diagnostic Test (Pha) (Accu-Chek) 1 ea 02 XX ; Start 12/01/18 at 02:00 Insulin Aspart (Novolog Insulin Pen) NOVOLOG *MILD* ALGORITHM WITH MEALS BED TIME SC ; Start 11/30/18 at 21:00 Multivitamins Therapeutic (Theragran) 1 tab DAILY PO Last administered on 12/01/18at 09:01; Admin Dose 1 TAB; Start 12/01/18 at 09:00 Ascorbic Acid (Vitamin C) 500 mg DAILY PO Last administered on 12/01/18at 09:01; Admin Dose 500 MG; Start 12/01/18 at 09:00 ERNESTO CARRILLO December 01, 2018 14:47
--- NOTE | 2018-12-01 16:25 | PN ---
Date/Time of Note Date/Time of Note DATE: 12/01/18 TIME: 16:23 Assessment/Plan VTE Prophylaxis Risk score (from Ns)>0 risk: 6 SCD applied (from Ns): No SCD contraindicated: other Pharmacological prophylaxis: heparin Lines/Catheters IV Catheter Type (from [facility]): perma catheter Urinary Cath still in place: No Assessment/Plan Hospital Course SUBJECTIVE: Patient sitting in a wheel chair in the middle of the nurses station. OBJECTIVE: Physical Exam General: Thin, frail looking, 73 year-old female sitting in a chair in no apparent distress. HEENT: Normocephalic, atraumatic. Eyes: Anicteric sclerae, conjunctivae clear. ENT: Nasal septum midline, oral mucosa moist. Neck supple, no JVD noticed. Respiratory: Bilaterally clear breath sounds. No use of accessory muscles of respiration. No adventitious breath sounds. Cardiovascular: S1, S2 heard. Abdomen: Soft, nontender, and nondistended. Bowel sounds positive in all 4 quadrants. Genitourinary: Deferred. Extremities: No cyanosis, no clubbing, no edema. Peripheral pulses palpable. Neurologic: The patient is awake and alert. OrientedX1. Skin: Normal skin turgor. No skin rashes. Labs & Vitals per chart ASSESSMENT & PLAN 73-year-old female with comorbidities including end-stage renal disease on intermittent hemodialysis, hypertension, dyslipidemia, diabetes mellitus,cardiac arrhythmia, and possible underlying dementia, who was brought to the hospital emergency room because nonfunctioning AV fistula. 1. Nonfunctional AV fistula. -Status post thrombectomy with AV fistula revision on 11/28/2018. -AV fistula nonfunctional. -Status post PermCath placement. 2. Hypertension. -Continue antihypertensives. 3. Pulmonary hypertension -PA systolic pressure 43 mmHg. 4. Diabetes mellitus. -Continue sliding scale insulin. 5. History of cardiac arrhythmia. -Continue amiodarone. 6. Dyslipidemia. -Continue Zetia and statins. 7. Moderate to severe protein calorie malnutrition. -Status post dietary consult. -Continue dietary supplements. 8. DVT prophylaxis. -Subcutaneous heparin. 9. Fluids, electrolytes, and nutrition. -Carbohydrate controlled, low potassium diet. 10. Plan. -Continues to be hyperkalemic. -Patient requires further hemodialysis before the patient can be discharged to a [place] [facility] facility. The patient was seen in collaboration with Dr. Minor. Result Diagram: 12/01/18 1316 12/01/18 1508 Results 24hrs Laboratory Tests Test 11/30/18 17:32 11/30/18 20:44 12/01/18 08:07 12/01/18 08:11 Bedside Glucose 84 70 34 *L 86 Test 12/01/18 12:00 12/01/18 13:16 12/01/18 15:08 Bedside Glucose 75 White Blood Count 9.8 Red Blood Count 4.47 Hemoglobin 12.1 Hematocrit 39.8 Mean Corpuscular 89.0 Volume Mean Corpuscular 27.1 L Hemoglobin Mean Corpuscular 30.4 L Hemoglobin Concent Red Cell 15.1 H Distribution Width Platelet Count 353 Mean Platelet Volume 10.2 Immature 0.300 Granulocytes % Neutrophils % 86.0 H Lymphocytes % 5.0 L Monocytes % 8.2 Eosinophils % 0.1 Basophils % 0.4 Nucleated Red Blood 0.0 Cells % Immature 0.030 Granulocytes # Neutrophils # 8.4 H Lymphocytes # 0.5 L Monocytes # 0.8 Eosinophils # 0.0 Basophils # 0.0 Nucleated Red Blood 0.0 Cells # Sodium Level 139 Potassium Level 6.2 *H 6.0 H Chloride Level 99 Carbon Dioxide Level 24 Anion Gap 16 H Blood Urea Nitrogen 43 #H Creatinine 8.87 #H Est Glomerular Filtrat Rate mL/min Glucose Level 120 Calcium Level 9.1 Phosphorus Level 5.8 H Magnesium Level 2.5 Exam/Review of Systems Exam Vitals Vital Signs Date Temp Pulse Resp B/P (MAP) Pulse Ox O2 O2 Flow FiO2 Time Delivery Rate 12/01/18 98.6 61 18 94/48 (63) 96 07:59 11/30/18 Room Air 20:44 11/28/18 2.0 23:00 Intake and Output 11/30/18 11/30/18 12/01/18 1515:00 23:00 07:00 IntakeIntake Total 675 ml 120 ml OutputOutput Total 784 ml BalanceBalance -109 ml 120 ml Results Results 24hrs Laboratory Tests Test 11/30/18 17:32 11/30/18 20:44 12/01/18 08:07 12/01/18 08:11 Bedside Glucose 84 70 34 *L 86 Test 12/01/18 12:00 12/01/18 13:16 12/01/18 15:08 Bedside Glucose 75 White Blood Count 9.8 Red Blood Count 4.47 Hemoglobin 12.1 Hematocrit 39.8 Mean Corpuscular 89.0 Volume Mean Corpuscular 27.1 L Hemoglobin Mean Corpuscular 30.4 L Hemoglobin Concent Red Cell 15.1 H Distribution Width Platelet Count 353 Mean Platelet Volume 10.2 Immature 0.300 Granulocytes % Neutrophils % 86.0 H Lymphocytes % 5.0 L Monocytes % 8.2 Eosinophils % 0.1 Basophils % 0.4 Nucleated Red Blood 0.0 Cells % Immature 0.030 Granulocytes # Neutrophils # 8.4 H Lymphocytes # 0.5 L Monocytes # 0.8 Eosinophils # 0.0 Basophils # 0.0 Nucleated Red Blood 0.0 Cells # Sodium Level 139 Potassium Level 6.2 *H 6.0 H Chloride Level 99 Carbon Dioxide Level 24 Anion Gap 16 H Blood Urea Nitrogen 43 #H Creatinine 8.87 #H Est Glomerular Filtrat Rate mL/min Glucose Level 120 Calcium Level 9.1 Phosphorus Level 5.8 H Magnesium Level 2.5 Medications Medication Current Medications Acetaminophen (Tylenol Tab) 650 mg Q6H PRN PO MILD PAIN(1-3)OR ELEVATED TEMP; Start 11/27/18 at 18:30 Aspirin (Halfprin) 81 mg DAILY PO Last administered on 12/01/18 09:01; Admin Dose 81 MG; Start 11/28/18 at 09:00 Atorvastatin Calcium (Lipitor) 40 mg QHS PO Last administered on 11/30/18 21:28; Admin Dose 40 MG; Start 11/27/18 at 21:00 Bisacodyl (Dulcolax Supp) 10 mg Q48H ND ; Start 11/27/18 at 18:30 Calcitriol (Rocaltrol) 0.25 mcg DAILY PO Last administered on 12/01/18 09:01; Admin Dose 0.25 MCG; Start 11/28/18 at 09:00 EZETIMIBE (Zetia) 10 mg DAILY PO Last administered on 12/01/18 09:01; Admin Dose 10 MG; Start 11/28/18 at 09:00 Famotidine (Pepcid) 20 mg DAILY PO Last administered on 12/01/18 09:00; Admin Dose 20 MG; Start 11/28/18 at 09:00 Folic Acid (Folic Acid) 1 mg DAILY PO Last administered on 5/18/19at 09:00; Admin Dose 1 MG; Start 11/28/18 at 09:00 Lisinopril (Zestril) 20 mg DAILY PO Last administered on 11/30/18at 12:22; Admin Dose 20 MG; Start 11/28/18 at 09:00 Metoprolol Succinate (Toprol Xl) 100 mg DAILY PO Last administered on 11/30/18 12:21; Admin Dose 100 MG; Start 11/28/18 at 09:00 Senna (Senokot) 1 tab QHS PO Last administered on 11/30/18at 21:28; Admin Dose 1 TAB; Start 11/27/18 at 21:00 Miscellaneous Information (Pending [facility] Order For Wound Care) This patient tarango... PRN PRN XX WOUND CARE; Start 11/27/18 at 23:00 Heparin Sodium (Porcine) (Heparin (5000 Units/1ml)) 5,000 unit Q12 SC Last administered on 12/01/18at 09:07; Admin Dose 5,000 UNIT; Start 11/27/18 at 22:55 Miscellaneous Information 1 ea NOTE XX ; Start 11/28/18 at 08:00 Glucose (Glutose) 15 gm Q15M PRN PO DECREASED GLUCOSE; Start 11/28/18 at 08:00 Glucose (Glutose) 22.5 gm Q15M PRN PO DECREASED GLUCOSE; Start 11/28/18 at 08:00 Dextrose (D50w Syringe) 25 ml Q15M PRN IV DECREASED GLUCOSE Last administered on 11/30/18at 08:54; Admin Dose 25 ML; Start 11/28/18 at 08:00 Dextrose (D50w Syringe) 50 ml Q15M PRN IV DECREASED GLUCOSE; Start 11/28/18 at 08:00 Glucagon (Glucagen) 1 mg Q15M PRN IM DECREASED GLUCOSE; Start 11/28/18 at 08:00 Glucose (Glutose) 15 gm Q15M PRN BUCCAL DECREASED GLUCOSE; Start 11/28/18 at 08:00 Trazodone HCl (Desyrel) 50 mg HS PRN PO insomnia; Start 11/29/18 at 08:00 Amiodarone HCl (Cordarone) 100 mg DAILY PO Last administered on 11/30/18at 12:21; Admin Dose 100 MG; Start 11/30/18 at 09:00 Diagnostic Test (Pha) (Accu-Chek) 1 ea 02 XX ; Start 12/01/18 at 02:00 Insulin Aspart (Novolog Insulin Pen) NOVOLOG *MILD* ALGORITHM WITH MEALS BEDTIME SC ; Start 11/30/18 at 21:00 Multivitamins Therapeutic (Theragran) 1 tab DAILY PO Last administered on 12/01/18at 09:01; Admin Dose 1 TAB; Start 12/01/18 at 09:00 Ascorbic Acid (Vitamin C) 500 mg DAILY PO Last administered on 12/01/18at 09:01; Admin Dose 500 MG; Start 12/01/18 at 09:00 THEA STEVENS NP December 01, 2018 16:25
[2018-12-01] MEDS: BISACODYL 10 MG SUPP PR SCH (18:40)
[2018-12-02] VITALS (18 sets, daily range): BP systolic 74–130; BP diastolic 30–90; PULSE 51–95; RESP 17–20
[2018-12-02] MEDS: SENNA TAB PO SCH ×2 (01:00→19:58)
[2018-12-02] MEDS: ATORVASTATIN 40 MG TAB PO SCH ×2 (01:00→19:58)
[2018-12-02] MEDS: HEPARIN 5,000 UNIT/1 ML VIAL SC SCH ×3 (01:03→20:02)
[2018-12-02] MEDS: ACCU-CHEK XX SCH (02:00)
[2018-12-02] MEDS: INSULIN ASPART [NOVOLOG] 3 ML PEN SC SCH ×4 (08:00→20:05)
--- NOTE | 2018-12-02 08:14 | RADRPT ---
PROCEDURE: PLACEMENT OF RIGHT INTERNAL JUGULAR VENOUS TUNNELED DIALYSIS CATHETER. CLINICAL INDICATION: Renal failure. TECHNIQUE: Prior to the procedure, informed consent was obtained. Risks including bleeding, infection, and pneum othorax were explained to the patient. The patient understood and was willing to proceed. A procedura l pause was performed. The patient's name, date of , and procedure to be performed were verified . The central line was inserted with all elements of maximal sterile barrier technique. All of the fo llowing were used: head covering, facial mask, sterile gown, sterile gloves, a large sterile sheet, h and hygiene, and 2% chlorhexidine for cutaneous antisepsis. The right neck and anterior/superior ch est wall was prepped and draped in usual sterile fashion. Limited sonography of the right neck was then performed. Noted is a patent right internal jugular vei n. Ultrasound images were recorded and stored in the patient's medical record. Following the local injection of Xylocaine, the right internal jugular vein was punctured under sonog raphic guidance with a 20-gauge needle through which a 0.018 inch floppy tip guidewire was advanced i nto the superior vena cava. The tract was dilated to 5 Serbian and the wire was then replaced with a 0 .035 in Amplatz guidewire. A tunnel was then created from the anterior lateral aspect of the superio r right chest wall to the puncture site in the neck and the catheter was pulled through the tract. S erial dilatation was then performed and a 16 Serbian peel away sheath was introduced. The 14.5 Serbian 23cm tip to cuff Angiodynamics BioFlo DuraMax dialysis catheter was advanced through the 16 Serbian p eel-away sheath. The tip of the catheter was confirmed in position within the right atrium. The peel- away sheath was removed. The 2 ports were each flushed with 2.3 ml of 1:1000 heparin. The catheter w as secured to the skin with 2-0 silk. The wound in the neck was closed with 4-0 Vicryl suture using subcuticular running technique. The site was dressed. Specimens: None. Blood loss: 5 ml. Complications: None. Anesthesia: Local and moderate sedation. Graft/Implant: Tunneled dialysis catheter. COMPARISON: None. FINDINGS: Final radiographic images demonstrate the tip of the catheter in the upper right atrium. A total of 0.3 minutes of fluoroscopy time was used. The ultrasound images demonstrate the needle entering the jugular vein. Ultrasound images were recorded and stored in the patient's medical record. 2 images of the chest were obtained with image intensifier. IMPRESSION: 1. Percutaneous insertion of right internal jugular dialysis tunneled dialysis catheter under fluoros copic and sonographic guidance. RPTAT: QQ Physician Herbert Date Time Electronically viewed and signed by Physician Herbert on 12/02/2018 08:14 rV/
[2018-12-02] MEDS: AMIODARONE 200 MG TAB PO SCH (08:57)
[2018-12-02] MEDS: LISINOPRIL 20 MG TAB PO SCH (08:57)
[2018-12-02] MEDS: METOPROLOL (XL) 100 MG TAB PO SCH (08:57)
[2018-12-02] MEDS: ASPIRIN (EC) 81 MG TAB PO SCH (09:01)
[2018-12-02] MEDS: MULTIVITAMINS THERAPEUTIC TAB PO SCH (09:01)
[2018-12-02] MEDS: ASCORBIC ACID 500 MG TAB PO SCH (09:01)
[2018-12-02] MEDS: EZETIMIBE 10 MG TAB PO SCH (09:01)
[2018-12-02] MEDS: CALCITRIOL 0.25 MCG CAP PO SCH (09:01)
[2018-12-02] MEDS: FAMOTIDINE 20 MG TAB PO SCH (09:01)
[2018-12-02] MEDS: FOLIC ACID 1 MG TAB PO SCH (09:01)
--- NOTE | 2018-12-02 11:38 | CONS ---
Consultation Date/Type/Reason Admit Date/Time November 29, 2018 at 09:16 Initial Consult Date SUBJECTIVE: Patient is awake, alert, afebrile. S/P HD catheter insertion today. VS: stable T: 97.9 LABS: Reviewed. Chest x-ray on admission revealed mild cardiomegaly Indwelling's right upper extremity AV fistula Physical examination: GEN: this is a chronically ill appearing fragile elderly -[place] woman, who is awake in no distress. HENT: Head atraumatic normocephalic ;neck is supple PULM: chest rise symmetrical, breath sounds diminished bases Heart: S1-S2 Abdomen: soft, bowel sounds present Extremities: right upper extremity dressing clean dry intact, no cyanosis Assessment: 1. Leukocytosis, likely reactive 2. End-stage renal disease 3. Clotted right arm AV fistula, status post thrombectomy with revision 11/29/15 4. Anemia of chronic disease Plan: Patient is stable. Continue observing off of antibiotics. Requesting Provider: TANYA GONZALEZ DO Date/Time of Note DATE: 12/02/18 TIME: 11:36 Exam/Review of Systems Exam Vitals Vital Signs Date Temp Pulse Resp B/P (MAP) Pulse Ox O2 O2 Flow FiO2 Time Delivery Rate 12/02/18 97.9 69 17 127/75 92 Room Air 08:12 (92) 11/28/18 2.0 23:00 Intake and Output 12/01/18 12/01/18 12/02/18 1515:00 23:00 07:00 IntakeIntake Total 590 ml 240 ml 250 ml OutputOutput Total 100 ml 1200 ml BalanceBalance 590 ml 140 ml -950 ml Results Result Diagram: 12/01/18 1316 12/01/18 1749 Results 24hrs Laboratory Tests Test 12/01/18 12:00 12/01/18 13:16 12/01/18 15:08 12/01/18 17:08 Bedside Glucose 75 62 L White Blood Count 9.8 Red Blood Count 4.47 Hemoglobin 12.1 Hematocrit 39.8 Mean Corpuscular 89.0 Volume Mean Corpuscular 27.1 L Hemoglobin Mean Corpuscular 30.4 L Hemoglobin Concent Red Cell 15.1 H Distribution Width Platelet Count 353 Mean Platelet Volume 10.2 Immature 0.300 Granulocytes % Neutrophils % 86.0 H Lymphocytes % 5.0 L Monocytes % 8.2 Eosinophils % 0.1 Basophils % 0.4 Nucleated Red Blood 0.0 Cells % Immature 0.030 Granulocytes # Neutrophils # 8.4 H Lymphocytes # 0.5 L Monocytes # 0.8 Eosinophils # 0.0 Basophils # 0.0 Nucleated Red Blood 0.0 Cells # Sodium Level 139 Potassium Level 6.2 *H 6.0 H Chloride Level 99 Carbon Dioxide Level 24 Anion Gap 16 H Blood Urea Nitrogen 43 #H Creatinine 8.87 #H Est Glomerular Filtrat Rate mL/min Glucose Level 120 Calcium Level 9.1 Phosphorus Level 5.8 H Magnesium Level 2.5 Test 12/01/18 17:20 12/01/18 17:35 12/01/18 17:49 12/01/18 21:23 Bedside Glucose 173 72 129 Glucose Level 179 Test 12/02/18 07:57 Bedside Glucose 84 Medications Medication Current Medications Acetaminophen (Tylenol Tab) 650 mg Q6H PRN PO MILD PAIN(1-3)OR ELEVATED TEMP; Start 11/27/18 at 18:30 Aspirin (Halfprin) 81 mg DAILY PO Last administered on 12/02/18 09:01; Admin Dose 81 MG; Start 11/28/18 at 09:00 Atorvastatin Calcium (Lipitor) 40 mg QHS PO Last administered on 12/02/18 01:00; Admin Dose 40 MG; Start 11/27/18 at 21:00 Bisacodyl (Dulcolax Supp) 10 mg Q48H WI Last administered on 12/01/18at 18:40; Admin Dose 10 MG; Start 11/27/18 at 18:30 Calcitriol (Rocaltrol) 0.25 mcg DAILY PO Last administered on 12/02/18 09:01; Admin Dose 0.25 MCG; Start 11/28/18 at 09:00 EZETIMIBE (Zetia) 10 mg DAILY PO Last administered on 12/02/18 09:01; Admin Dose 10 MG; Start 11/28/18 at 09:00 Famotidine (Pepcid) 20 mg DAILY PO Last administered on 12/02/18 09:01; Admin Dose 20 MG; Start 11/28/18 at 09:00 Folic Acid (Folic Acid) 1 mg DAILY PO Last administered on 12/02/18 09:01; Admin Dose 1 MG; Start 11/28/18 at 09:00 Lisinopril (Zestril) 20 mg DAILY PO Last administered on 11/30/18at 12:22; Admin Dose 20 MG; Start 11/28/18 at 09:00 Metoprolol Succinate (Toprol Xl) 100 mg DAILY PO Last administered on 11/30/18at 12:21; Admin Dose 100 MG; Start 11/28/18 at 09:00 Senna (Senokot) 1 tab QHS PO Last administered on 12/02/18at 01:00; Admin Dose 1 TAB; Start 11/27/18 at 21:00 [facility] This patient tarango... PRN PRN XX WOUND CARE; Start 11/27/18 at 23:00 Heparin Sodium (Porcine) (Heparin (5000 Units/1ml)) 5,000 unit Q12 SC Last administered on 12/02/18at 09:05; Admin Dose 5,000 UNIT; Start 11/27/18 at 22:55 Miscellaneous Information 1 ea NOTE XX ; Start 11/28/18 at 08:00 Glucose (Glutose) 15 gm Q15M PRN PO DECREASED GLUCOSE; Start 11/28/18 at 08:00 Glucose (Glutose) 22.5 gm Q15M PRN PO DECREASED GLUCOSE; Start 11/28/18 at 08:00 Dextrose (D50w Syringe) 25 ml Q15M PRN IV DECREASED GLUCOSE Last administered on 11/30/18at 08:54; Admin Dose 25 ML; Start 11/28/18 at 08:00 Dextrose (D50w Syringe) 50 ml Q15M PRN IV DECREASED GLUCOSE; Start 11/28/18 at 08:00 Glucagon (Glucagen) 1 mg Q15M PRN IM DECREASED GLUCOSE; Start 11/28/18 at 08:00 Glucose (Glutose) 15 gm Q15M PRN BUCCAL DECREASED GLUCOSE; Start 11/28/18 at 08:00 Trazodone HCl (Desyrel) 50 mg HS PRN PO insomnia; Start 11/29/18 at 08:00 Amiodarone HCl (Cordarone) 100 mg DAILY PO Last administered on 11/30/18at 12:21; Admin Dose 100 MG; Start 11/30/18 at 09:00 Diagnostic Test (Pha) (Accu-Chek) 1 ea 02 XX ; Start 12/01/18 at 02:00 Insulin Aspart (Novolog Insulin Pen) NOVOLOG *MILD* ALGORITHM WITH MEALS BEDTIME SC ; Start 11/30/18 at 21:00 Multivitamins Therapeutic (Theragran) 1 tab DAILY PO Last administered on 12/02/18at 09:01; Admin Dose 1 TAB; Start 12/01/18 at 09:00 Ascorbic Acid (Vitamin C) 500 mg DAILY PO Last administered on 12/02/18at 09:01; Admin Dose 500 MG; Start 12/01/18 at 09:00 ERNESTO CARRILLO December 02, 2018 11:38
--- NOTE | 2018-12-02 13:03 | PN ---
Date/Time of Note Date/Time of Note DATE: 12/02/18 TIME: 13:01 Assessment/Plan VTE Prophylaxis Risk score (from Ns)>0 risk: 7 SCD applied (from [facility]): No SCD contraindicated: patient refusal Pharmacological prophylaxis: heparin Lines/Catheters IV Catheter Type (from [facility]): Saline Lock Urinary Cath still in place: No Assessment/Plan Hospital Course SUBJECTIVE: Patient sitting in a wheel chair in the middle of the nurses station. Refused AM labs. OBJECTIVE: Physical Exam General: Thin, frail looking, 73 year-old female sitting in a chair in no apparent distress. HEENT: Normocephalic, atraumatic. Eyes: Anicteric sclerae, conjunctivae clear. ENT: Nasal septum midline, oral mucosa moist. Neck supple, no JVD noticed. Respiratory: Bilaterally clear breath sounds. No use of accessory muscles of respiration. No adventitious breath sounds. Cardiovascular: S1, S2 heard. Abdomen: Soft, nontender, and nondistended. Bowel sounds positive in all 4 quadrants. Genitourinary: Deferred. Extremities: No cyanosis, no clubbing, no edema. Peripheral pulses palpable. Neurologic: The patient is awake and alert. OrientedX1. Skin: Normal skin turgor. No skin rashes. Labs & Vitals per chart ASSESSMENT & PLAN 73-year-old female with comorbidities including end-stage renal disease on intermittent hemodialysis, hypertension, dyslipidemia, diabetes mellitus,cardiac arrhythmia, and possible underlying dementia, who was brought to the hospital emergency room because nonfunctioning AV fistula. 1. Nonfunctional AV fistula. -Status post thrombectomy with AV fistula revision on 11/28/2018. -AV fistula nonfunctional. -Status post PermCath placement. 2. Hypertension. -Continue antihypertensives. 3. Pulmonary hypertension -PA systolic pressure 43 mmHg. 4. Diabetes mellitus. -Continue sliding scale insulin. 5. History of cardiac arrhythmia. -Continue amiodarone. 6. Dyslipidemia. -Continue Zetia and statins. 7. Moderate to severe protein calorie malnutrition. -Status post dietary consult. -Continue dietary supplements. 8. DVT prophylaxis. -Subcutaneous heparin. 9. Fluids, electrolytes, and nutrition. -Carbohydrate controlled, low potassium diet. 10. Plan. -Continues to be hyperkalemic. -Patient requires further hemodialysis before the patient can be discharged to a penitentiary facility. The patient was seen in collaboration with Dr. Minor. Result Diagram: 12/01/18 1316 12/01/18 1749 Results 24hrs Laboratory Tests Test 12/01/18 13:16 12/01/18 15:08 12/01/18 17:08 12/01/18 17:20 White Blood Count 9.8 Red Blood Count 4.47 Hemoglobin 12.1 Hematocrit 39.8 Mean Corpuscular 89.0 Volume Mean Corpuscular 27.1 L Hemoglobin Mean Corpuscular 30.4 L Hemoglobin Concent Red Cell 15.1 H Distribution Width Platelet Count 353 Mean Platelet Volume 10.2 Immature 0.300 Granulocytes % Neutrophils % 86.0 H Lymphocytes % 5.0 L Monocytes % 8.2 Eosinophils % 0.1 Basophils % 0.4 Nucleated Red Blood 0.0 Cells % Immature 0.030 Granulocytes # Neutrophils # 8.4 H Lymphocytes # 0.5 L Monocytes # 0.8 Eosinophils # 0.0 Basophils # 0.0 Nucleated Red Blood 0.0 Cells # Sodium Level 139 Potassium Level 6.2 *H 6.0 H Chloride Level 99 Carbon Dioxide Level 24 Anion Gap 16 H Blood Urea Nitrogen 43 #H Creatinine 8.87 #H Est Glomerular Filtrat Rate mL/min Glucose Level 120 Calcium Level 9.1 Phosphorus Level 5.8 H Magnesium Level 2.5 Bedside Glucose 62 L 173 Test 12/01/18 17:35 12/01/18 17:49 12/01/18 21:23 12/02/18 07:57 Bedside Glucose 72 129 84 Glucose Level 179 Test 12/02/18 12:27 Bedside Glucose 103 Exam/Review of Systems Exam Vitals Vital Signs Date Temp Pulse Resp B/P (MAP) Pulse Ox O2 O2 Flow FiO2 Time Delivery Rate 12/02/18 97.9 69 17 127/75 92 Room Air 08:12 (92) 11/28/18 2.0 23:00 Intake and Output 12/01/18 12/01/18 12/02/18 1515:00 23:00 07:00 IntakeIntake Total 590 ml 240 ml 250 ml OutputOutput Total 100 ml 1200 ml BalanceBalance 590 ml 140 ml -950 ml Results Results 24hrs Laboratory Tests Test 12/01/18 13:16 12/01/18 15:08 12/01/18 17:08 12/01/18 17:20 White Blood Count 9.8 Red Blood Count 4.47 Hemoglobin 12.1 Hematocrit 39.8 Mean Corpuscular 89.0 Volume Mean Corpuscular 27.1 L Hemoglobin Mean Corpuscular 30.4 L Hemoglobin Concent Red Cell 15.1 H Distribution Width Platelet Count 353 Mean Platelet Volume 10.2 Immature 0.300 Granulocytes % Neutrophils % 86.0 H Lymphocytes % 5.0 L Monocytes % 8.2 Eosinophils % 0.1 Basophils % 0.4 Nucleated Red Blood 0.0 Cells % Immature 0.030 Granulocytes # Neutrophils # 8.4 H Lymphocytes # 0.5 L Monocytes # 0.8 Eosinophils # 0.0 Basophils # 0.0 Nucleated Red Blood 0.0 Cells # Sodium Level 139 Potassium Level 6.2 *H 6.0 H Chloride Level 99 Carbon Dioxide Level 24 Anion Gap 16 H Blood Urea Nitrogen 43 #H Creatinine 8.87 #H Est Glomerular Filtrat Rate mL/min Glucose Level 120 Calcium Level 9.1 Phosphorus Level 5.8 H Magnesium Level 2.5 Bedside Glucose 62 L 173 Test 12/01/18 17:35 12/01/18 17:49 12/01/18 21:23 12/02/18 07:57 Bedside Glucose 72 129 84 Glucose Level 179 Test 12/02/18 12:27 Bedside Glucose 103 Medications Medication Current Medications Acetaminophen (Tylenol Tab) 650 mg Q6H PRN PO MILD PAIN(1-3)OR ELEVATED TEMP; Start 11/27/18 at 18:30 Aspirin (Halfprin) 81 mg DAILY PO Last administered on 12/02/18 09:01; Admin Dose 81 MG; Start 11/28/18 at 09:00 Atorvastatin Calcium (Lipitor) 40 mg QHS PO Last administered on 12/02/18at 01:00; Admin Dose 40 MG; Start 11/27/18 at 21:00 Bisacodyl (Dulcolax Supp) 10 mg Q48H [place] Last administered on 12/01/18at 18:40; Admin Dose 10 MG; Start 11/27/18 at 18:30 Calcitriol (Rocaltrol) 0.25 mcg DAILY PO Last administered on 12/02/18 09:01; Admin Dose 0.25 MCG; Start 11/28/18 at 09:00 EZETIMIBE (Zetia) 10 mg DAILY PO Last administered on 12/02/18 09:01; Admin Dose 10 MG; Start 11/28/18 at 09:00 Famotidine (Pepcid) 20 mg DAILY PO Last administered on 12/02/18at 09:01; Admin Dose 20 MG; Start 11/28/18 at 09:00 Folic Acid (Folic Acid) 1 mg DAILY PO Last administered on 12/02/18at 09:01; Admin Dose 1 MG; Start 11/28/18 at 09:00 Lisinopril (Zestril) 20 mg DAILY PO Last administered on 11/30/18at 12:22; Admin Dose 20 MG; Start 11/28/18 at 09:00 Metoprolol Succinate (Toprol Xl) 100 mg DAILY PO Last administered on 11/30/18at 12:21; Admin Dose 100 MG; Start 11/28/18 at 09:00 Senna (Senokot) 1 tab QHS PO Last administered on 12/02/18at 01:00; Admin Dose 1 TAB; Start 11/27/18 at 21:00 Miscellaneous Information (Pending [facility] Order For Wound Care) This patient tarango... PRN PRN XX WOUND CARE; Start 11/27/18 at 23:00 Heparin Sodium (Porcine) (Heparin (5000 Units/1ml)) 5,000 unit Q12 SC Last administered on 12/02/18at 09:05; Admin Dose 5,000 UNIT; Start 11/27/18 at 22:55 Miscellaneous Information 1 ea NOTE XX ; Start 11/28/18 at 08:00 Glucose (Glutose) 15 gm Q15M PRN PO DECREASED GLUCOSE; Start 11/28/18 at 08:00 Glucose (Glutose) 22.5 gm Q15M PRN PO DECREASED GLUCOSE; Start 11/28/18 at 08:00 Dextrose (D50w Syringe) 25 ml Q15M PRN IV DECREASED GLUCOSE Last administered on 11/30/18at 08:54; Admin Dose 25 ML; Start 11/28/18 at 08:00 Dextrose (D50w Syringe) 50 ml Q15M PRN IV DECREASED GLUCOSE; Start 11/28/18 at 08:00 Glucagon (Glucagen) 1 mg Q15M PRN IM DECREASED GLUCOSE; Start 11/28/18 at 08:00 Glucose (Glutose) 15 gm Q15M PRN BUCCAL DECREASED GLUCOSE; Start 11/28/18 at 08:00 Trazodone HCl (Desyrel) 50 mg HS PRN PO insomnia; Start 11/29/18 at 08:00 Amiodarone HCl (Cordarone) 100 mg DAILY PO Last administered on 11/30/18at 12:21; Admin Dose 100 MG; Start 11/30/18 at 09:00 Diagnostic Test (Pha) (Accu-Chek) 1 ea 02 XX ; Start 12/01/18 at 02:00 Insulin Aspart (Novolog Insulin Pen) NOVOLOG *MILD* ALGORITHM WITH MEALS BEDTI ME SC ; Start 11/30/18 at 21:00 Multivitamins Therapeutic (Theragran) 1 tab DAILY PO Last administered on 12/02/18at 09:01; Admin Dose 1 TAB; Start 12/01/18 at 09:00 Ascorbic Acid (Vitamin C) 500 mg DAILY PO Last administered on 12/02/18at 09:01; Admin Dose 500 MG; Start 12/01/18 at 09:00 THEA STEVENS NP December 02, 2018 13:03
--- NOTE | 2018-12-02 13:50 | PN ---
DATE: 12/02/2018 SUBJECTIVE: The patient is stable. No events overnight. OBJECTIVE: VITAL SIGNS: Blood pressure is 127/75, pulse 69, respirations 17, temperature 97.9. HEENT: Head is normocephalic. NECK: Supple. HEART: Regular rate. LUNGS: Show diminished breath sounds at the base. ABDOMEN: Soft, nontender to palpation without rebound or guarding. EXTREMITIES: Negative for clubbing, cyanosis, no edema. DERMATOLOGIC: No rashes. MUSCULOSKELETAL: No joint effusions. NEUROLOGIC: No change in exam. MEDICATIONS: The patient's medications have been reviewed. LABORATORY DATA: Has been reviewed. IMAGING STUDIES: Have been reviewed. ASSESSMENT AND PLAN: 1. End-stage renal disease. The patient had hemodialysis yesterday, tolerated well. Plan for dialy sis again tomorrow. 2. Hyperkalemia. The patient was dialyzed on low potassium bath. We will follow up renal panel. 3. Anemia. Continue to monitor hemoglobin and hematocrit levels. Continue Epogen as needed. 4. Mineral bone disorder. Monitor calcium and phosphorus levels. 5. Hypertension. Continue current blood pressure regimen. 6. Arrhythmia. Continue to monitor. 7. Dyslipidemia. Continue statin therapy. 8. Leukocytosis. Continue to monitor. 9. History of constipation. Continue current bowel regimen. 10. Gastrointestinal and deep venous thrombosis prophylaxis. Dictated By: TANYA GONZALEZ DO NR/NTS Conf#: [id number] DID#: [id number] CC: LOGAN COLON MD; BRANDON MONTE MD;*EndCC*
--- NOTE | 2018-12-02 18:44 | PN ---
Date/Time of Note Date/Time of Note DATE: 12/02/18 TIME: 18:43 Assessment/Plan Lines/Catheters IV Catheter Type (from [facility]): Saline Lock Muñiz in Place (from [facility]): No Assessment/Plan Assessment/Plan End-stage renal disease This post thrombectomy AV fistula and permacath pt will need a new fistula Venous mapping will be done and the new fistula will be placed as an outpatient Exam/Review of Systems Vital Signs Vitals Vital Signs Date Temp Pulse Resp B/P (MAP) Pulse Ox O2 O2 Flow FiO2 Time Delivery Rate 12/02/18 98.0 80 17 121/70 93 Room Air 14:05 (87) 11/28/18 2.0 23:00 Intake and Output 12/01/18 12/01/18 12/02/18 1515:00 23:00 07:00 IntakeIntake Total 590 ml 240 ml 250 ml OutputOutput Total 100 ml 1200 ml BalanceBalance 590 ml 140 ml -950 ml Results Result Diagram: 12/01/18 1316 12/01/18 1749 MALEBRANDON STANFORD MD December 02, 2018 18:44
[2018-12-02] MEDS ORDERED: HEPARIN 1000 UNITS/ML 10 ML INJ CATHETER ONE (20:30)
[2018-12-03] VITALS (17 sets, daily range): BP systolic 89–119; BP diastolic 29–72; PULSE 60–91; RESP 17–18
[2018-12-03] MEDS: ACCU-CHEK XX SCH (02:00)
--- NOTE | 2018-12-03 07:27 | PN ---
DATE: 12/01/2018 SUBJECTIVE: The patient had hemodialysis yesterday, tolerated well. No other events noted. OBJECTIVE: VITAL SIGNS: Blood pressure is 94/48, pulse 61, temperature 98.6. HEENT: Head is normocephalic. NECK: Supple. HEART: Regular rate. LUNGS: Show diminished breath sounds at the base. ABDOMEN: Soft, nontender to palpation without rebound or guarding. EXTREMITIES: Negative for clubbing, cyanosis, no edema. DERMATOLOGIC: No rashes. MUSCULOSKELETAL: No joint effusion. NEUROLOGIC: No change in exam. MEDICATIONS: Have been reviewed. LABORATORY DATA: Has been reviewed. ASSESSMENT AND PLAN: 1. End-stage renal disease. The patient had a Perm-A-Cath placed yesterday, as patient's AV fissure is clotted. The patient had hemodialysis yesterday, tolerated well. Plan for dialysis again tomorr ow. 2. Anemia. Continue to monitor hemoglobin and hematocrit levels. Continue Epogen. 3. Mineral bone disorder, monitor calcium and phosphorus levels. 4. Hypertension. The patient is hypotensive. Continue to monitor closely, adjust blood pressure me dications. 5. Arrhythmia. Follow up with cardiology. 6. Dyslipidemia. Continue statin therapy. 7. Leukocytosis. Continue to monitor. Appreciate ID's evaluation. 8. History of constipation. 9. Gastrointestinal and deep vein thrombosis prophylaxis. Dictated By: TANYA WEBER/CONRAD Conf#: [id number] DID#: [id number]
[2018-12-03] MEDS: INSULIN ASPART [NOVOLOG] 3 ML PEN SC SCH ×4 (08:00→21:00)
[2018-12-03] MEDS: FAMOTIDINE 20 MG TAB PO SCH (08:56)
[2018-12-03] MEDS: EZETIMIBE 10 MG TAB PO SCH (08:56)
[2018-12-03] MEDS: CALCITRIOL 0.25 MCG CAP PO SCH (08:56)
[2018-12-03] MEDS: ASPIRIN (EC) 81 MG TAB PO SCH (08:58)
[2018-12-03] MEDS: AMIODARONE 200 MG TAB PO SCH (08:58)
[2018-12-03] MEDS: MULTIVITAMINS THERAPEUTIC TAB PO SCH (08:58)
[2018-12-03] MEDS: ASCORBIC ACID 500 MG TAB PO SCH (08:58)
[2018-12-03] MEDS: FOLIC ACID 1 MG TAB PO SCH (08:58)
[2018-12-03] MEDS: LISINOPRIL 20 MG TAB PO SCH (08:59)
[2018-12-03] MEDS: METOPROLOL (XL) 100 MG TAB PO SCH (08:59)
[2018-12-03] MEDS: HEPARIN 5,000 UNIT/1 ML VIAL SC SCH ×2 (09:00→21:16)
--- NOTE | 2018-12-03 10:36 | PN ---
DATE: 12/03/2018 SUBJECTIVE: The patient is stable. No events overnight. OBJECTIVE: VITAL SIGNS: Blood pressure is 107/72, pulse 80, respirations 17, temperature 98.2. HEENT: Head is normocephalic. NECK: Supple. HEART: Regular rate. LUNGS: Show diminished breath sounds at the base. ABDOMEN: Soft, nontender to palpation without rebound or guarding. EXTREMITIES: Negative for clubbing, cyanosis, no edema. DERMATOLOGIC: No rashes. MUSCULOSKELETAL: No joint effusion. NEUROLOGIC: No change in exam. MEDICATIONS: Reviewed. LABORATORY DATA: Reviewed. ASSESSMENT AND PLAN: 1. End-stage renal disease. The patient is scheduled for dialysis today. We will dialyze for 3 santiago rs 2k bath, calcium 2.5. 2. Anemia. Continue to monitor hemoglobin and hematocrit levels. Continue Epogen. 3. Mineral bone disorder, monitor calcium and phosphorus levels. 4. Hypertension. Continue current blood pressure regimen. 5. Arrhythmia. Followup with Cardiology. 6. Dyslipidemia. Continue statin therapy. 7. Leukocytosis, resolved. 8. Constipation. Continue current bowel regimen. 9. Gastrointestinal and deep vein thrombosis prophylaxis. 10. Access. The patient will follow up with vascular surgeon, Dr. Mohamud, for outpatient evaluat ion of AV fistula. Dictated By: TANYA GONZALEZ DO NR/NTS Conf#: [id number] DID#: [id number] CC: BRANDON MOHAMUD MD; TANYA GONZALEZ DO; LOGAN COLON MD;*EndCC*
--- NOTE | 2018-12-03 12:27 | DS ---
Date/Time of Note Date/Time of Note DATE: 12/03/18 TIME: 12:22 Discharge Summary Admission/Discharge Info Admit Date/Time November 29, 2018 at 09:16 Discharge Date/Time Discharge Diagnosis 73-year-old female with comorbidities including end-stage renal disease on in termittent hemodialysis, hypertension, dyslipidemia, diabetes mellitus,cardiac arrhythmia, and possible underlying dementia, who was brought to the hospital emergency room because nonfunctioning AV fistula. 1. Nonfunctional AV fistula. -Status post thrombectomy with AV fistula revision on 11/28/2018. -AV fistula nonfunctional. -Status post PermCath placement. 2. Hypertension. -Continue antihypertensives. 3. Pulmonary hypertension -PA systolic pressure 43 mmHg. 4. Diabetes mellitus. -Continue sliding scale insulin. 5. History of cardiac arrhythmia. -Continue amiodarone. 6. Dyslipidemia. -Continue Zetia and statins. 7. Moderate to severe protein calorie malnutrition. -Status post dietary consult. -Continue dietary supplements. 8. DVT prophylaxis. -Subcutaneous heparin. 9. Fluids, electrolytes, and nutrition. -Carbohydrate controlled, low potassium diet. Patient Condition: Stable Consults Cardiology: René Lee MD Nephrology Enio Desouza MD Infectious disease Nestor Desouza MD Vascular surgery: William Mohamud MD Cardiology: René Lee MD . Procedures See hospital course . Hospital Course 73-year-old female who was sent from care home facility because of a nonfunctioning AV fistula. Patient was seen by ID, cardiology as well as vascular surgery. Patient has known end-stage renal disease and was originally admitted by her primary history faculty member Dr. Enio Desouza MD. She originally underwent thrombectomy with revision of AV fistula and angioplasty November 28, 2018 postprocedure however the fistula still did not work. Hence at that time vascular surgery recommended that the patient get a permacath placed. This was done via interventional radiology November 30, 2018. She however did require multiple sessions of hemodialysis before she was stable enough to be discharged. This is likely due to the fact that she was off hemodialysis for a few days. At this time she is doing well, electrolytes are normal, clinically she is stable. She has been assessed to be in stable condition for discharge . Home Meds Reported Medications Insulin Regular, Human (Humulin R) 100 Unit/1 Ml Vial, 0 IJ SLIDING SCALE, VIAL IF BS 71-150=O UNIT <70 GIVE 8OZ ORANGE JUICE AND CALL MD IF BS 151-200=2 UNITS,201-250=4 UNITS,251-300=8 UNITS,351-400=10 UNITS,>400=12 UNITS AND CALL MD. 11/27/18 Trazodone Hcl* (Trazodone Hcl*) 50 Mg Tablet, 50 MG PO QHS, #30 TAB 11/27/18 Tadalafil (Cialis) 20 Mg Tablet, 20 MG PO DAILY, TAB 11/27/18 Sennosides* (Senna Lax*) 8.6 Mg Tablet, 1 TAB PO QHS, TAB 11/27/18 Nut.tx.impaired Renal Fxn,Soy (NEPRO CARB STEADY) 237 Ml Liquid, 237 ML PO DAILY 11/27/18 Metoprolol Succinate* (Toprol XL*) 100 Mg Tab.sr.24h, 100 MG PO DAILY, #30 TAB HOLD FOR SBP<110 OR HR<60 11/27/18 Lorazepam* (Lorazepam*) 0.5 Mg Tablet, 0.5 MG PO HS PRN for NEEDED, TAB 11/27/18 Lisinopril* (Lisinopril*) 20 Mg Tablet, 20 MG PO DAILY, #30 TAB HOLD IF SBP<110 OR HR<60 11/27/18 Heparin Sodium,Porcine/Pf (HEPARIN SOD 5,000 UNIT/ 0.5 ML) 5,000 Unit/0.5 Ml Vial, 5000 UNIT IJ DAILY, VIAL 11/27/18 Glucagon,Human Recombinant (Glucagon Emergency Kit) 1 Mg Kit, 1 MG IJ NEEDED, KIT 11/27/18 Glipizide* (Glipizide*) 5 Mg Tablet, 5 MG PO AC BREAKFAST, TAB 11/27/18 Folic Acid* (Folic Acid*) 1 Mg Tablet, 1 MG PO Q MON,FRI, TAB 11/27/18 Mineral Oil* (Fleet* Mineral Oil Enema) Unknown Strength Oil, 118 ML MD Q72H, ENEMA 11/27/18 Febuxostat* (Uloric*) 40 Mg Tablet, 40 MG PO DAILY PRN for NEEDED, TAB 11/27/18 Famotidine* (Famotidine*) 20 Mg Tablet, 20 MG PO DAILY, #30 TAB 11/27/18 Ezetimibe* (Zetia*) 10 Mg Tablet, 10 MG PO DAILY, TAB 11/27/18 Bisacodyl (Dulcolax) 10 Mg Supp.rect, 10 MG RC Q48H, SUPP.RECT 11/27/18 Darbepoetin Madhu in Polysorbat (Aranesp) 25 Mcg/0.42 Ml Syringe, 75 MCG IJ Q TUES 11/27/18 Calcitriol* (Rocaltrol*) 0.25 Mcg Capsule, 0.25 MCG PO DAILY, CAP 11/27/18 Atorvastatin* (Atorvastatin*) 40 Mg Tablet, 40 MG PO QHS, #30 TAB 11/27/18 Aspirin* (Aspirin* EC) 81 Mg Tablet., 81 MG PO DAILY, TAB 11/27/18 Amiodarone Hcl* (Amiodarone Hcl*) 200 Mg Tablet, 200 MG PO DAILY, #30 TAB 11/27/18 Acetaminophen* (Acetaminophen*) 650 Mg Tablet, 650 MG PO Q6H PRN for PAIN AND OR ELEVATED TEMP, #30 TAB 11/27/18 Follow-up Plan Dr. Desouza will continue to follow as primary doctor [facility] the [facility] . Primary Care Provider Not On Staff Doctor Time spent on discharge: > 30 minutes Pending Labs Laboratory Tests Test 12/02/18 12:27 12/02/18 17:24 12/02/18 18:30 12/02/18 19:56 Bedside 103 101 172 Glucose mg/dL (70-220) mg/dL (70-220) mg/dL (70-220) White Blood 9.0 Count 10^3/ul (4.8-1 0.8) Red Blood 3.45 Count 10^6/ul (4.20- 5.40) Hemoglobin 9.2 g/dl (12.0-16. 0) Hematocrit 30.1 % (37.0-47.0) Mean 87.2 Corpuscular fl (82.0-101.0 Volume ) Mean 26.7 Corpuscular pg (29.0-33.0) Hemoglobin Mean 30.6 Corpuscular g/dl (32.0-37. Hemoglobin Conc 0) ent Red Cell 15.0 Distribution % (11.5-14.5) Width Platelet Count 299 10^3/UL (140-4 15) Mean Platelet 10.5 Volume fl (7.4-10.4) Immature 0.600 Granulocytes % % (0.001-0.429 ) Neutrophils % 83.1 % (39.0-77.0) Lymphocytes % 6.1 % (15.0-51.0) Monocytes % 9.6 % (0.0-11.0) Eosinophils % 0.3 % (0.0-7.0) Basophils % 0.3 % (0.0-2.0) Nucleated Red 0.0 Blood Cells % /100WBC (0.0-0 .0) Immature 0.050 Granulocytes # 10^3/ul (0.0-0 .031) Neutrophils # 7.4 10^3/ul (1.6-7 .5) Lymphocytes # 0.6 10^3/ul (0.8-2 .9) Monocytes # 0.9 10^3/ul (0.3-0 .9) Eosinophils # 0.0 10^3/ul (0.0-0 .5) Basophils # 0.0 10^3/ul (0.0-0 .1) Nucleated Red 0.0 Blood Cells # 10^3/ul (0.0-0 .0) Sodium Level 139 mmol/L (135-14 4) Potassium 4.3 Level mmol/L (3.5-5. 1) Chloride Level 98 mmol/L (97-110 ) Carbon Dioxide 30 Level mmol/L (21-31) Anion Gap 11 (5-13) Blood Urea 45 Nitrogen mg/dl (7-20) Creatinine 7.47 mg/dl (0.44-1. 00) Est Glomerular mL/min (>60) Filtrat Rate mL/min Glucose Level 209 mg/dl (70-220) Hemoglobin A1c 5.1 % (0-5.9) Calcium Level 8.9 mg/dl (8.4-10. 2) Phosphorus 5.0 Level mg/dl (2.5-4.9 ) Magnesium 2.2 Level mg/dl (1.7-2.5 ) Test 12/03/18 07:54 12/03/18 07:59 12/03/18 08:02 12/03/18 08:52 Bedside 73 51 75 89 Glucose mg/dL (70-220) mg/dL (70-220) mg/dL (70-220) mg/dL (70-220) Test 12/03/18 09:12 12/03/18 09:34 Bedside 83 Glucose mg/dL (70-220) White Blood 10.3 Count 10^3/ul (4.8-1 0.8) Red Blood 3.88 Count 10^6/ul (4.20- 5.40) Hemoglobin 10.2 g/dl (12.0-16. 0) Hematocrit 34.6 % (37.0-47.0) Mean 89.2 Corpuscular fl (82.0-101.0 Volume ) Mean 26.3 Corpuscular pg (29.0-33.0) Hemoglobin Mean 29.5 Corpuscular g/dl (32.0-37. Hemoglobin Conc 0) ent Red Cell 15.1 Distribution % (11.5-14.5) Width Platelet Count 202 10^3/UL (140-4 15) Mean Platelet 11.7 Volume fl (7.4-10.4) Immature 0.600 Granulocytes % % (0.001-0.429 ) Neutrophils % 82.5 % (39.0-77.0) Lymphocytes % 6.5 % (15.0-51.0) Monocytes % 9.8 % (0.0-11.0) Eosinophils % 0.2 % (0.0-7.0) Basophils % 0.4 % (0.0-2.0) Nucleated Red 0.0 Blood Cells % /100WBC (0.0-0 .0) Immature 0.060 Granulocytes # 10^3/ul (0.0-0 .031) Neutrophils # 8.5 10^3/ul (1.6-7 .5) Lymphocytes # 0.7 10^3/ul (0.8-2 .9) Monocytes # 1.0 10^3/ul (0.3-0 .9) Eosinophils # 0.0 10^3/ul (0.0-0 .5) Basophils # 0.0 10^3/ul (0.0-0 .1) Nucleated Red 0.0 Blood Cells # 10^3/ul (0.0-0 .0) Sodium Level 140 mmol/L (135-14 4) Potassium 4.9 Level mmol/L (3.5-5. 1) Chloride Level 101 mmol/L (97-110 ) Carbon Dioxide 26 Level mmol/L (21-31) Anion Gap 13 (5-13) Blood Urea 21 Nitrogen mg/dl (7-20) Creatinine 4.61 mg/dl (0.44-1. 00) Est Glomerular mL/min (>60) Filtrat Rate mL/min Glucose Level 140 mg/dl (70-220) Calcium Level 9.2 mg/dl (8.4-10. 2) Phosphorus 3.5 Level mg/dl (2.5-4.9 ) Magnesium 2.2 Level mg/dl (1.7-2.5 ) LOGAN COLON December 03, 2018 12:27
--- NOTE | 2018-12-03 13:57 | CONS ---
Assessment/Plan Assessment/Plan Hospital Course (Demo Recall) In hemodialysis, awake and looks comfortable no fevers overnight Chest x-ray on admission revealed mild cardiomegaly Indwelling's: Right upper extremity AV fistula, right IJ permacath Physical examination this is a chronically ill appearing fragile elderly -[place] woman who is awake in no distress. Head atraumatic normocephalic neck is supple chest rise symmetrical breath sounds diminished bases heart S1-S2 abdomen soft bowel sounds present extremities with right upper extremity dressing clean dry intact Assessment: 1. Leukocytosis, likely reactive 2. End-stage renal disease 3. Clotted right arm AV fistula, status post thrombectomy with revision 11/29/15 4. Anemia of chronic disease Plan: Patient is stable, continue observing off antibiotics Consultation Date/Type/Reason Admit Date/Time November 29, 2018 at 09:16 Initial Consult Date 11/28/18 Type of Consult id Requesting Provider: TANYA GONZALEZ DO Date/Time of Note DATE: 12/03/18 TIME: 13:56 Exam/Review of Systems Exam Vitals Vital Signs Date Temp Pulse Resp B/P (MAP) Pulse Ox O2 O2 Flow FiO2 Time Delivery Rate 12/03/18 81 13:45 12/03/18 18 118/35 98 Room Air 11:30 (62) 12/03/18 98.2 08:56 Intake and Output 12/02/18 12/02/18 12/03/18 1515:00 23:00 07:00 IntakeIntake Total 600 ml 120 ml OutputOutput Total 1000 ml BalanceBalance -400 ml 120 ml Results Result Diagram: 12/03/18 0934 12/03/18 0934 Results 24hrs Laboratory Tests Test 12/02/18 17:24 12/02/18 18:30 12/02/18 19:56 12/03/18 07:54 Bedside Glucose 101 172 73 White Blood Count 9.0 Red Blood Count 3.45 #L Hemoglobin 9.2 #L Hematocrit 30.1 #L Mean Corpuscular 87.2 Volume Mean Corpuscular 26.7 L Hemoglobin Mean Corpuscular 30.6 L Hemoglobin Concent Red Cell 15.0 H Distribution Width Platelet Count 299 Mean Platelet Volume 10.5 H Immature 0.600 H Granulocytes % Neutrophils % 83.1 H Lymphocytes % 6.1 L Monocytes % 9.6 Eosinophils % 0.3 Basophils % 0.3 Nucleated Red Blood 0.0 Cells % Immature 0.050 H Granulocytes # Neutrophils # 7.4 Lymphocytes # 0.6 L Monocytes # 0.9 Eosinophils # 0.0 Basophils # 0.0 Nucleated Red Blood 0.0 Cells # Sodium Level 139 Potassium Level 4.3 Chloride Level 98 Carbon Dioxide Level 30 Anion Gap 11 Blood Urea Nitrogen 45 H Creatinine 7.47 H Est Glomerular Filtrat Rate mL/min Glucose Level 209 Hemoglobin A1c 5.1 Calcium Level 8.9 Phosphorus Level 5.0 H Magnesium Level 2.2 Test 12/03/18 07:59 12/03/18 08:02 12/03/18 08:52 12/03/18 09:12 Bedside Glucose 51 L 75 89 83 Test 12/03/18 09:34 12/03/18 12:12 White Blood Count 10.3 Red Blood Count 3.88 L Hemoglobin 10.2 L Hematocrit 34.6 L Mean Corpuscular 89.2 Volume Mean Corpuscular 26.3 L Hemoglobin Mean Corpuscular 29.5 L Hemoglobin Concent Red Cell 15.1 H Distribution Width Platelet Count 202 # Mean Platelet Volume 11.7 H Immature 0.600 H Granulocytes % Neutrophils % 82.5 H Lymphocytes % 6.5 L Monocytes % 9.8 Eosinophils % 0.2 Basophils % 0.4 Nucleated Red Blood 0.0 Cells % Immature 0.060 H Granulocytes # Neutrophils # 8.5 H Lymphocytes # 0.7 L Monocytes # 1.0 H Eosinophils # 0.0 Basophils # 0.0 Nucleated Red Blood 0.0 Cells # Sodium Level 140 Potassium Level 4.9 Chloride Level 101 Carbon Dioxide Level 26 Anion Gap 13 Blood Urea Nitrogen 21 #H Creatinine 4.61 #H Est Glomerular Filtrat Rate mL/min Glucose Level 140 # Calcium Level 9.2 Phosphorus Level 3.5 Magnesium Level 2.2 Bedside Glucose 91 Medications Medication Current Medications Acetaminophen (Tylenol Tab) 650 mg Q6H PRN PO MILD PAIN(1-3)OR ELEVATED TEMP; Start 11/27/18 at 18:30 Aspirin (Halfprin) 81 mg DAILY PO Last administered on 12/03/18at 08:58; Admin Dose 81 MG; Start 11/28/18 at 09:00 Atorvastatin Calcium (Lipitor) 40 mg QHS PO Last administered on 12/02/18at 19:58; Admin Dose 40 MG; Start 11/27/18 at 21:00 Bisacodyl (Dulcolax Supp) 10 mg Q48H DC Last administered on 12/01/18at 18:40; Admin Dose 10 MG; Start 11/27/18 at 18:30 Calcitriol (Rocaltrol) 0.25 mcg DAILY PO Last administered on 12/03/18 08:56; Admin Dose 0.25 MCG; Start 11/28/18 at 09:00 EZETIMIBE (Zetia) 10 mg DAILY PO Last administered on 12/03/18 08:56; Admin Dose 10 MG; Start 11/28/18 at 09:00 Famotidine (Pepcid) 20 mg DAILY PO Last administered on 12/03/18 08:56; Admin Dose 20 MG; Start 11/28/18 at 09:00 Folic Acid (Folic Acid) 1 mg DAILY PO Last administered on 12/03/18 08:58; Admin Dose 1 MG; Start 11/28/18 at 09:00 Lisinopril (Zestril) 20 mg DAILY PO Last administered on 11/30/18at 12:22; Admin Dose 20 MG; Start 11/28/18 at 09:00 Metoprolol Succinate (Toprol Xl) 100 mg DAILY PO Last administered on 11/30/18 12:21; Admin Dose 100 MG; Start 11/28/18 at 09:00 Senna (Senokot) 1 tab QHS PO Last administered on 12/02/18 19:58; Admin Dose 1 TAB; Start 11/27/18 at 21:00 Miscellaneous Information (Pending [facility] Order For Wound Care) This patient tarango... PRN PRN XX WOUND CARE; Start 11/27/18 at 23:00 Heparin Sodium (Porcine) (Heparin (5000 Units/1ml)) 5,000 unit Q12 SC Last administered on 12/03/18at 09:00; Admin Dose 5,000 UNIT; Start 11/27/18 at 22:55 Miscellaneous Information 1 ea NOTE XX ; Start 11/28/18 at 08:00 Glucose (Glutose) 15 gm Q15M PRN PO DECREASED GLUCOSE; Start 11/28/18 at 08:00 Glucose (Glutose) 22.5 gm Q15M PRN PO DECREASED GLUCOSE; Start 11/28/18 at 08:00 Dextrose (D50w Syringe) 25 ml Q15M PRN IV DECREASED GLUCOSE Last administered on 11/30/18at 08:54; Admin Dose 25 ML; Start 11/28/18 at 08:00 Dextrose (D50w Syringe) 50 ml Q15M PRN IV DECREASED GLUCOSE; Start 11/28/18 at 08:00 Glucagon (Glucagen) 1 mg Q15M PRN IM DECREASED GLUCOSE; Start 11/28/18 at 08:00 Glucose (Glutose) 15 gm Q15M PRN BUCCAL DECREASED GLUCOSE; Start 11/28/18 at 08:00 Trazodone HCl (Desyrel) 50 mg HS PRN PO insomnia; Start 11/29/18 at 08:00 Amiodarone HCl (Cordarone) 100 mg DAILY PO Last administered on 12/03/18at 08:58; Admin Dose 100 MG; Start 11/30/18 at 09:00 Diagnostic Test (Pha) (Accu-Chek) 1 ea 02 XX ; Start 12/01/18 at 02:00 Insulin Aspart (Novolog Insulin Pen) NOVOLOG *MILD* ALGORITHM WITH MEALS BEDTIME SC ; Start 11/30/18 at 21:00 Multivitamins Therapeutic (Theragran) 1 tab DAILY PO Last administered on 12/03/18at 08:58; Admin Dose 1 TAB; Start 12/01/18 at 09:00 Ascorbic Acid (Vitamin C) 500 mg DAILY PO Last administered on 12/03/18at 08:58; Admin Dose 500 MG; Start 12/01/18 at 09:00 WALLY DOUGHERTY NP December 03, 2018 13:57
[2018-12-03] MEDS ORDERED: HEPARIN 1000 UNITS/ML 10 ML INJ CATHETER SCH (14:30)
[2018-12-03] MEDS ORDERED: ASC500 PO (15:08)
[2018-12-03] MEDS ORDERED: MULTI PO (15:08)
[2018-12-03] MEDS: BISACODYL 10 MG SUPP PR SCH (18:30)
--- NOTE | 2018-12-03 20:17 | CONS ---
Consult Date/Type/Reason Admit Date/Time November 29, 2018 at 09:16 Initial Consult Date 11/28/18 Type of Consultation: cv Requesting Provider: TANYA GONZALEZ DO Date/Time of Note DATE: 12/03/18 TIME: 20:17 Subjective Interventional cardiology follow-up progress note Subjective: Discussed with staff. Discussed with physicians. no reports of any chest pain or pressure Status post AV fistula repair November 28 Objective: General: Thin cachectic looking female in no acute distress HEENT: NC/AT. pupils are equal. round. NECK: . no stridor. CV: RRR. systolic murmur; no gallop or rubs. PULM: no wheezing or rhonchi. GI: SOFT, NT, ND, no rebound or guarding Extremity: Significant B/L LE edema. no clubbing. neuro: Comfortably sleeping. Psych: Appears calm now rectal: deferred EKG was personally showed normal sinus rhythm. Nonspecific T wave abnormalities Echocardiogram done 11/28/2018 was personally reviewed which shows: Normal left ventricular systolic function. Normal left ventricular cavity size. Normal left ventricular wall thickness. Ejection fraction is visually estimated at 55 %. Tissue Doppler/Mitral Doppler indices are consistent with pseudonormalization with mildly elevated left atrial pressure (Stage II diastolic dysfunction). There is mild enlargement of right atrium. Mild mitral leaflet calcification. Mild mitral annular calcification. Trace mitral regurgitation. No hemodynamically significant aortic stenosis by doppler. Aortic cusps appear mildly calcified. Trileaflet aortic valve. Normal appearance of the tricuspid valve. Estimated peak PA systolic pressure 43 mmHg. There is mild tricuspid regurgitation. Normal size and normal respiratory collapse consistent with normal right atrial pressure. Objective Vitals Vital Signs Date Temp Pulse Resp B/P (MAP) Pulse Ox O2 O2 Flow FiO2 Time Delivery Rate 12/03/18 97.8 84 18 95/54 (68) 94 15:23 12/03/18 Room Air 11:30 Intake and Output 12/02/18 12/02/18 12/03/18 1515:00 23:00 07:00 IntakeIntake Total 600 ml 120 ml OutputOutput Total 1000 ml BalanceBalance -400 ml 120 ml Results/Medications Result Diagram: 12/03/18 0934 12/03/18 0934 Results 24 hrs Laboratory Tests Test 12/03/18 07:54 12/03/18 07:59 12/03/18 08:02 12/03/18 08:52 Bedside Glucose 73 51 L 75 89 Test 12/03/18 09:12 12/03/18 09:34 12/03/18 12:12 12/03/18 16:56 Bedside Glucose 83 91 91 White Blood Count 10.3 Red Blood Count 3.88 L Hemoglobin 10.2 L Hematocrit 34.6 L Mean Corpuscular 89.2 Volume Mean Corpuscular 26.3 L Hemoglobin Mean Corpuscular 29.5 L Hemoglobin Concent Red Cell 15.1 H Distribution Width Platelet Count 202 # Mean Platelet Volume 11.7 H Immature 0.600 H Granulocytes % Neutrophils % 82.5 H Lymphocytes % 6.5 L Monocytes % 9.8 Eosinophils % 0.2 Basophils % 0.4 Nucleated Red Blood 0.0 Cells % Immature 0.060 H Granulocytes # Neutrophils # 8.5 H Lymphocytes # 0.7 L Monocytes # 1.0 H Eosinophils # 0.0 Basophils # 0.0 Nucleated Red Blood 0.0 Cells # Sodium Level 140 Potassium Level 4.9 Chloride Level 101 Carbon Dioxide Level 26 Anion Gap 13 Blood Urea Nitrogen 21 #H Creatinine 4.61 #H Est Glomerular Filtrat Rate mL/min Glucose Level 140 # Calcium Level 9.2 Phosphorus Level 3.5 Magnesium Level 2.2 Home Meds Active Scripts Multivitamins* (Theragran*) 1 Tab Tab, 1 TAB PO DAILY, #30 TAB Prov:LOGAN COLON. 12/03/18 Ascorbic Acid (Vitamin C) 500 Mg Tab, 500 MG PO DAILY, #30 TAB Prov:LOGAN COLON . 12/03/18 Reported Medications Trazodone Hcl* (Trazodone Hcl*) 50 Mg Tablet, 50 MG PO QHS, #30 TAB 11/27/18 Tadalafil (Cialis) 20 Mg Tablet, 20 MG PO DAILY, TAB 11/27/18 Sennosides* (Senna Lax*) 8.6 Mg Tablet, 1 TAB PO QHS, TAB 11/27/18 Nut.tx.impaired Renal Fxn,Soy (NEPRO CARB STEADY) 237 Ml Liquid, 237 ML PO DAILY 11/27/18 Metoprolol Succinate* (Toprol XL*) 100 Mg Tab.sr.24h, 100 MG PO DAILY, #30 TAB HOLD FOR SBP<110 OR HR<60 11/27/18 Lorazepam* (Lorazepam*) 0.5 Mg Tablet, 0.5 MG PO HS PRN for NEEDED, TAB 11/27/18 Lisinopril* (Lisinopril*) 20 Mg Tablet, 20 MG PO DAILY, #30 TAB HOLD IF SBP<110 OR HR<60 11/27/18 Folic Acid* (Folic Acid*) 1 Mg Tablet, 1 MG PO Q MON,FRI, TAB 11/27/18 Mineral Oil* (Fleet* Mineral Oil Enema) Unknown Strength Oil, 118 ML [place] Q72H, ENEMA 11/27/18 Febuxostat* (Uloric*) 40 Mg Tablet, 40 MG PO DAILY PRN for NEEDED, TAB 11/27/18 Famotidine* (Famotidine*) 20 Mg Tablet, 20 MG PO DAILY, #30 TAB 11/27/18 Ezetimibe* (Zetia*) 10 Mg Tablet, 10 MG PO DAILY, TAB 11/27/18 Bisacodyl (Dulcolax) 10 Mg Supp.rect, 10 MG RC Q48H, SUPP.RECT 11/27/18 Calcitriol* (Rocaltrol*) 0.25 Mcg Capsule, 0.25 MCG PO DAILY, CAP 11/27/18 Atorvastatin* (Atorvastatin*) 40 Mg Tablet, 40 MG PO QHS, #30 TAB 11/27/18 Aspirin* (Aspirin* EC) 81 Mg Tablet.dr, 81 MG PO DAILY, TAB 11/27/18 Amiodarone Hcl* (Amiodarone Hcl*) 200 Mg Tablet, 200 MG PO DAILY, #30 TAB 11/27/18 Acetaminophen* (Acetaminophen*) 650 Mg Tablet, 650 MG PO Q6H PRN for PAIN AND OR ELEVATED TEMP, #30 TAB 11/27/18 Discontinued Reported Medications Insulin Regular, Human (Humulin R) 100 Unit/1 Ml Vial, 0 IJ SLIDING SCALE, VIAL IF BS 71-150=O UNIT <70 GIVE 8OZ ORANGE JUICE AND CALL MD IF BS 151-200=2 UNITS,201-250=4 UNITS,251-300=8 UNITS,351-400=10 UNITS,>400=12 UNITS AND CALL MD. 11/27/18 Heparin Sodium,Porcine/Pf (HEPARIN SOD 5,000 UNIT/ 0.5 ML) 5,000 Unit/0.5 Ml Vial, 5000 UNIT IJ DAILY, VIAL 11/27/18 Glucagon,Human Recombinant (Glucagon Emergency Kit) 1 Mg Kit, 1 MG IJ NEEDED, KIT 11/27/18 Glipizide* (Glipizide*) 5 Mg Tablet, 5 MG PO AC BREAKFAST, TAB 11/27/18 Darbepoetin Madhu in Polysorbat (Aranesp) 25 Mcg/0.42 Ml Syringe, 75 MCG IJ Q TUES 11/27/18 Medications Current Medications Acetaminophen (Tylenol Tab) 650 mg Q6H PRN PO MILD PAIN(1-3)OR ELEVATED TEMP; Start 11/27/18 at 18:30 Aspirin (Halfprin) 81 mg DAILY PO Last administered on 12/03/18 08:58; Admin Dose 81 MG; Start 11/28/18 at 09:00 Atorvastatin Calcium (Lipitor) 40 mg QHS PO Last administered on 12/02/18 19:58; Admin Dose 40 MG; Start 11/27/18 at 21:00 Bisacodyl (Dulcolax Supp) 10 mg Q48H OK Last administered on 12/01/18at 18:40; Admin Dose 10 MG; Start 11/27/18 at 18:30 Calcitriol (Rocaltrol) 0.25 mcg DAILY PO Last administered on 12/03/18 08:56; Admin Dose 0.25 MCG; Start 11/28/18 at 09:00 EZETIMIBE (Zetia) 10 mg DAILY PO Last administered on 12/03/18 08:56; Admin Dose 10 MG; Start 11/28/18 at 09:00 Famotidine (Pepcid) 20 mg DAILY PO Last administered on 12/03/18 08:56; Admin Dose 20 MG; Start 11/28/18 at 09:00 Folic Acid (Folic Acid) 1 mg DAILY PO Last administered on 12/03/18 08:58; Admin Dose 1 MG; Start 11/28/18 at 09:00 Lisinopril (Zestril) 20 mg DAILY PO Last administered on 11/30/18 12:22; Admin Dose 20 MG; Start 11/28/18 at 09:00 Metoprolol Succinate (Toprol Xl) 100 mg DAILY PO Last administered on 11/30/18 12:21; Admin Dose 100 MG; Start 11/28/18 at 09:00 Senna (Senokot) 1 tab QHS PO Last administered on 12/02/18at 19:58; Admin Dose 1 TAB; Start 11/27/18 at 21:00 Miscellaneous Information (Pending [facility] Order For Wound Care) This patient tarango... PRN PRN XX WOUND CARE; Start 11/27/18 at 23:00 Heparin Sodium (Porcine) (Heparin (5000 Units/1ml)) 5,000 unit Q12 SC Last administered on 12/03/18at 09:00; Admin Dose 5,000 UNIT; Start 11/27/18 at 22:55 Miscellaneous Information 1 ea NOTE XX ; Start 11/28/18 at 08:00 Glucose (Glutose) 15 gm Q15M PRN PO DECREASED GLUCOSE; Start 11/28/18 at 08:00 Glucose (Glutose) 22.5 gm Q15M PRN PO DECREASED GLUCOSE; Start 11/28/18 at 08:00 Dextrose (D50w Syringe) 25 ml Q15M PRN IV DECREASED GLUCOSE Last administered on 11/30/18at 08:54; Admin Dose 25 ML; Start 11/28/18 at 08:00 Dextrose (D50w Syringe) 50 ml Q15M PRN IV DECREASED GLUCOSE; Start 11/28/18 at 08:00 Glucagon (Glucagen) 1 mg Q15M PRN IM DECREASED GLUCOSE; Start 11/28/18 at 08:00 Glucose (Glutose) 15 gm Q15M PRN BUCCAL DECREASED GLUCOSE; Start 11/28/18 at 08:00 Trazodone HCl (Desyrel) 50 mg HS PRN PO insomnia; Start 11/29/18 at 08:00 Amiodarone HCl (Cordarone) 100 mg DAILY PO Last administered on 12/03/18at 08:58; Admin Dose 100 MG; Start 11/30/18 at 09:00 Diagnostic Test (Pha) (Accu-Chek) 1 ea 02 XX ; Start 12/01/18 at 02:00 Insulin Aspart (Novolog Insulin Pen) NOVOLOG *MILD* ALGORITHM WITH MEALS BEDTIME SC ; Start 11/30/18 at 21:00 Multivitamins Therapeutic (Theragran) 1 tab DAILY PO Last administered on 12/03/18at 08:58; Admin Dose 1 TAB; Start 12/01/18 at 09:00 Ascorbic Acid (Vitamin C) 500 mg DAILY PO Last administered on 12/03/18at 08:58; Admin Dose 500 MG; Start 12/01/18 at 09:00 Heparin Sodium (Porcine) (Heparin (1000 Units/ml)) 4,500 unit AFTER DIALYSIS CATHETER Last administered on 12/03/18at 14:59; Admin Dose 4,500 UNIT; Start 12/03/18 at 14:30 Assessment/Plan Hospital Course (Demo Recall) 1. History of possible arrhythmia possible proximal atrial fibrillation although detail is unclear. currently on amiodarone remains in sinus 2. Renal failure on dialysis 3. Hemodialysis access malfunction 4. Hypertension 5. Diabetes 6. Possible psych disorder 7. Incomplete data Recommendations: We will decrease the amiodarone 100 mg daily. consider stopping it later on if remains in NSR TSH was wnl Continue with the beta-sintia. Hemodialysis management as per renal Thank you for his referral we will continue to follow along with you as needed. JING GARAY MD [facility] JING GARAY MD December 03, 2018 20:17
[2018-12-03] MEDS: ATORVASTATIN 40 MG TAB PO SCH (21:00)
[2018-12-03] MEDS: SENNA TAB PO SCH (21:00)
[2018-12-04] MEDS: ACCU-CHEK XX SCH (01:40)
[2018-12-04 02:20] VITALS: BP 144/61; PULSE 84; RESP 20
[2018-12-04 07:50] VITALS: BP 125/50; PULSE 85; RESP 20
[2018-12-04] MEDS: INSULIN ASPART [NOVOLOG] 3 ML PEN SC SCH ×4 (08:00→21:00)
[2018-12-04] MEDS: ASPIRIN (EC) 81 MG TAB PO SCH (09:12)
[2018-12-04] MEDS: FAMOTIDINE 20 MG TAB PO SCH (09:13)
[2018-12-04] MEDS: METOPROLOL (XL) 100 MG TAB PO SCH (09:13)
[2018-12-04] MEDS: ASCORBIC ACID 500 MG TAB PO SCH (09:13)
[2018-12-04] MEDS: FOLIC ACID 1 MG TAB PO SCH (09:13)
[2018-12-04] MEDS: AMIODARONE 200 MG TAB PO SCH (09:13)
[2018-12-04] MEDS: MULTIVITAMINS THERAPEUTIC TAB PO SCH (09:13)
[2018-12-04] MEDS: EZETIMIBE 10 MG TAB PO SCH (09:14)
[2018-12-04] MEDS: LISINOPRIL 20 MG TAB PO SCH (09:14)
[2018-12-04] MEDS: CALCITRIOL 0.25 MCG CAP PO SCH (09:14)
--- NOTE | 2018-12-04 09:21 | PN ---
DATE: 12/04/2018 SUBJECTIVE: The patient is stable, no events overnight. OBJECTIVE: VITAL SIGNS: Blood pressure is 125/50, pulse 85, respirations 20, temperature 98.3. HEENT: Head is normocephalic. NECK: Supple. HEART: Regular rate. LUNGS: Show diminished breath sounds at the base. ABDOMEN: Soft, nontender to palpation without rebound or guarding. EXTREMITIES: Negative for clubbing, cyanosis, no edema. DERMATOLOGIC: No rashes. MUSCULOSKELETAL: No joint effusion. NEUROLOGIC: No change in exam. MEDICATIONS: Reviewed. LABORATORY DATA: Reviewed. ASSESSMENT AND PLAN: 1. End-stage renal disease. Plan is for hemodialysis tomorrow. 2. Anemia. Monitor hemoglobin and hematocrit levels. Continue Epogen. 3. Mineral bone disorder, monitor calcium and phosphorus levels. 4. Hypertension. Continue current blood pressure regimen. 5. Arrhythmia. Continue to monitor. Followup with cardiology. 6. Dyslipidemia. Continue statin therapy. 7. Access. The patient to have followup with Dr. Mohamud in an outpatient setting for reevaluatio n of AV fistula. 8. Gastrointestinal and deep vein thrombosis prophylaxis. Dictated By: TANYA GONZALEZ DO NR/NTS Conf#: [id number] DID#: [id number] CC: BRANDON MOHAMUD MD; TANYA GONZALEZ DO; LOGAN COLON MD;*EndCC*
[2018-12-04] MEDS: HEPARIN 5,000 UNIT/1 ML VIAL SC SCH ×2 (09:32→20:57)
--- NOTE | 2018-12-04 12:43 | CONS ---
Consult Date/Type/Reason Admit Date/Time November 29, 2018 at 09:16 Initial Consult Date 11/28/18 Type of Consultation: cv Requesting Provider: TANYA GONZALEZ DO Date/Time of Note DATE: 12/04/18 TIME: 12:42 Subjective Interventional cardiology follow-up progress note Subjective: Discussed with staff. Discussed with physicians. no reports of any chest pain or pressure NO PND orthopnea no palpitations Status post AV fistula repair November 28 Objective: General: Thin cachectic looking female in no acute distress HEENT: NC/AT. pupils are equal. round. NECK: . no stridor. CV: RRR. systolic murmur; no gallop or rubs. PULM: no wheezing or rhonchi. GI: SOFT, NT, ND, no rebound or guarding Extremity: Significant B/L LE edema. no clubbing. neuro: Awake and alert. Psych: Appears calm now rectal: deferred EKG was personally showed normal sinus rhythm. Nonspecific T wave abnormalities Echocardiogram done 11/28/2018 was personally reviewed which shows: Normal left ventricular systolic function. Normal left ventricular cavity size. Normal left ventricular wall thickness. Ejection fraction is visually estimated at 55 %. Tissue Doppler/Mitral Doppler indices are consistent with pseudonormalization with mildly elevated left atrial pressure (Stage II diastolic dysfunction). There is mild enlargement of right atrium. Mild mitral leaflet calcification. Mild mitral annular calcification. Trace mitral regurgitation. No hemodynamically significant aortic stenosis by doppler. Aortic cusps appear mildly calcified. Trileaflet aortic valve. Normal appearance of the tricuspid valve. Estimated peak PA systolic pressure 43 mmHg. There is mild tricuspid regurgitation. Normal size and normal respiratory collapse consistent with normal right atrial pressure. Objective Vitals Vital Signs Date Temp Pulse Resp B/P (MAP) Pulse Ox O2 O2 Flow FiO2 Time Delivery Rate 12/04/18 98.3 85 20 125/50 95 07:50 (75) 12/03/18 Room Air 20:00 Intake and Output 12/03/18 12/03/18 12/04/18 1515:00 23:00 07:00 IntakeIntake Total 120 ml 120 ml OutputOutput Total 1600 ml BalanceBalance -1480 ml 120 ml Results/Medications Result Diagram: 12/03/18 0934 12/03/18 0934 Results 24 hrs Laboratory Tests Test 12/03/18 16:56 12/03/18 21:14 12/04/18 08:27 Bedside Glucose 91 91 92 Home Meds Active Scripts Multivitamins* (Theragran*) 1 Tab Tab, 1 TAB PO DAILY, #30 TAB Prov:LOGAN COLON. 12/03/18 Ascorbic Acid (Vitamin C) 500 Mg Tab, 500 MG PO DAILY, #30 TAB Prov:LOGAN COLON M. 12/03/18 Reported Medications Trazodone Hcl* (Trazodone Hcl*) 50 Mg Tablet, 50 MG PO QHS, #30 TAB 11/27/18 Tadalafil (Cialis) 20 Mg Tablet, 20 MG PO DAILY, TAB 11/27/18 Sennosides* (Senna Lax*) 8.6 Mg Tablet, 1 TAB PO QHS, TAB 11/27/18 Nut.tx.impaired Renal Fxn,Soy (NEPRO CARB STEADY) 237 Ml Liquid, 237 ML PO DAILY 11/27/18 Metoprolol Succinate* (Toprol XL*) 100 Mg Tab.sr.24h, 100 MG PO DAILY, #30 TAB HOLD FOR SBP<110 OR HR<60 11/27/18 Lorazepam* (Lorazepam*) 0.5 Mg Tablet, 0.5 MG PO HS PRN for NEEDED, TAB 11/27/18 Lisinopril* (Lisinopril*) 20 Mg Tablet, 20 MG PO DAILY, #30 TAB HOLD IF SBP<110 OR HR<60 11/27/18 Folic Acid* (Folic Acid*) 1 Mg Tablet, 1 MG PO Q MON,FRI, TAB 11/27/18 Mineral Oil* (Fleet* Mineral Oil Enema) Unknown Strength Oil, 118 ML DC Q72H, ENEMA 11/27/18 Febuxostat* (Uloric*) 40 Mg Tablet, 40 MG PO DAILY PRN for NEEDED, TAB 11/27/18 Famotidine* (Famotidine*) 20 Mg Tablet, 20 MG PO DAILY, #30 TAB 11/27/18 Ezetimibe* (Zetia*) 10 Mg Tablet, 10 MG PO DAILY, TAB 11/27/18 Bisacodyl (Dulcolax) 10 Mg Supp.rect, 10 MG RC Q48H, SUPP.RECT 11/27/18 Calcitriol* (Rocaltrol*) 0.25 Mcg Capsule, 0.25 MCG PO DAILY, CAP 11/27/18 Atorvastatin* (Atorvastatin*) 40 Mg Tablet, 40 MG PO QHS, #30 TAB 11/27/18 Aspirin* (Aspirin* EC) 81 Mg Tablet.dr, 81 MG PO DAILY, TAB 11/27/18 Amiodarone Hcl* (Amiodarone Hcl*) 200 Mg Tablet, 200 MG PO DAILY, #30 TAB 11/27/18 Acetaminophen* (Acetaminophen*) 650 Mg Tablet, 650 MG PO Q6H PRN for PAIN AND OR ELEVATED TEMP, #30 TAB 11/27/18 Discontinued Reported Medications Insulin Regular, Human (Humulin R) 100 Unit/1 Ml Vial, 0 IJ SLIDING SCALE, VIAL IF BS 71-150=O UNIT <70 GIVE 8OZ ORANGE JUICE AND CALL MD IF BS 151-200=2 UNITS,201-250=4 UNITS,251-300=8 UNITS,351-400=10 UNITS,>400=12 UNITS AND CALL MD. 11/27/18 Heparin Sodium,Porcine/Pf (HEPARIN SOD 5,000 UNIT/ 0.5 ML) 5,000 Unit/0.5 Ml Vial, 5000 UNIT IJ DAILY, VIAL 11/27/18 Glucagon,Human Recombinant (Glucagon Emergency Kit) 1 Mg Kit, 1 MG IJ NEEDED, KIT 11/27/18 Glipizide* (Glipizide*) 5 Mg Tablet, 5 MG PO AC BREAKFAST, TAB 11/27/18 Darbepoetin Madhu in Polysorbat (Aranesp) 25 Mcg/0.42 Ml Syringe, 75 MCG IJ Q TUES 11/27/18 Medications Current Medications Acetaminophen (Tylenol Tab) 650 mg Q6H PRN PO MILD PAIN(1-3)OR ELEVATED TEMP; Start 11/27/18 at 18:30 Aspirin (Halfprin) 81 mg DAILY PO Last administered on 12/04/18at 09:12; Admin Dose 81 MG; Start 11/28/18 at 09:00 Atorvastatin Calcium (Lipitor) 40 mg QHS PO Last administered on 12/02/18at 19:58; Admin Dose 40 MG; Start 11/27/18 at 21:00 Bisacodyl (Dulcolax Supp) 10 mg Q48H DC Last administered on 12/01/18at 18:40; Admin Dose 10 MG; Start 11/27/18 at 18:30 Calcitriol (Rocaltrol) 0.25 mcg DAILY PO Last administered on 12/04/18 09:14; Admin Dose 0.25 MCG; Start 11/28/18 at 09:00 EZETIMIBE (Zetia) 10 mg DAILY PO Last administered on 12/04/18 09:14; Admin Dose 10 MG; Start 11/28/18 at 09:00 Famotidine (Pepcid) 20 mg DAILY PO Last administered on 12/04/18 09:13; Admin Dose 20 MG; Start 11/28/18 at 09:00 Folic Acid (Folic Acid) 1 mg DAILY PO Last administered on 12/04/18 09:13; Admin Dose 1 MG; Start 11/28/18 at 09:00 Lisinopril (Zestril) 20 mg DAILY PO Last administered on 12/04/18 09:14; Admin Dose 20 MG; Start 11/28/18 at 09:00 Metoprolol Succinate (Toprol Xl) 100 mg DAILY PO Last administered on 12/04/18 09:13; Admin Dose 100 MG; Start 11/28/18 at 09:00 Senna (Senokot) 1 tab QHS PO Last administered on 12/02/18 19:58; Admin Dose 1 TAB; Start 11/27/18 at 21:00 Miscellaneous Information (Pending [facility] Order For Wound Care) This patient tarango... PRN PRN XX WOUND CARE; Start 11/27/18 at 23:00 Heparin Sodium (Porcine) (Heparin (5000 Units/1ml)) 5,000 unit Q12 SC Last administered on 12/04/18at 09:32; Admin Dose 5,000 UNIT; Start 11/27/18 at 22:55 Miscellaneous Information 1 ea NOTE XX ; Start 11/28/18 at 08:00 Glucose (Glutose) 15 gm Q15M PRN PO DECREASED GLUCOSE; Start 11/28/18 at 08:00 Glucose (Glutose) 22.5 gm Q15M PRN PO DECREASED GLUCOSE; Start 11/28/18 at 08:00 Dextrose (D50w Syringe) 25 ml Q15M PRN IV DECREASED GLUCOSE Last administered on 11/30/18at 08:54; Admin Dose 25 ML; Start 11/28/18 at 08:00 Dextrose (D50w Syringe) 50 ml Q15M PRN IV DECREASED GLUCOSE; Start 11/28/18 at 08:00 Glucagon (Glucagen) 1 mg Q15M PRN IM DECREASED GLUCOSE; Start 11/28/18 at 08:00 Glucose (Glutose) 15 gm Q15M PRN BUCCAL DECREASED GLUCOSE; Start 11/28/18 at 08:00 Trazodone HCl (Desyrel) 50 mg HS PRN PO insomnia; Start 11/29/18 at 08:00 Amiodarone HCl (Cordarone) 100 mg DAILY PO Last administered on 12/04/18 09:13; Admin Dose 100 MG; Start 11/30/18 at 09:00 Diagnostic Test (Pha) (Accu-Chek) 1 ea 02 XX ; Start 12/01/18 at 02:00 Insulin Aspart (Novolog Insulin Pen) NOVOLOG *MILD* ALGORITHM WITH MEALS B EDTIME SC ; Start 11/30/18 at 21:00 Multivitamins Therapeutic (Theragran) 1 tab DAILY PO Last administered on 12/04/18 09:13; Admin Dose 1 TAB; Start 12/01/18 at 09:00 Ascorbic Acid (Vitamin C) 500 mg DAILY PO Last administered on 12/04/18 09:13; Admin Dose 500 MG; Start 12/01/18 at 09:00 Heparin Sodium (Porcine) (Heparin (1000 Units/ml)) 4,500 unit AFTER DIALYSIS CATHETER Last administered on 12/03/18at 14:59; Admin Dose 4,500 UNIT; Start 12/03/18 at 14:30 Assessment/Plan Hospital Course (Demo Recall) 1. History of possible arrhythmia possible proximal atrial fibrillation although detail is unclear. currently on amiodarone remains in sinus 2. Renal failure on dialysis 3. Hemodialysis access malfunction 4. Hypertension 5. Diabetes 6. Possible psych disorder 7. Incomplete data Recommendations: Continue low-dose amiodarone 100 mg daily. consider stopping it later on if remains in NSR TSH was wnl Continue with the beta-sintia. Hemodialysis management as per renal Follow-up with vascular recommendation regarding dialysis access issues Thank you for his referral we will continue to follow along with you as needed. JING GARAY MD [facility] JING GARAY MD December 04, 2018 12:43
--- NOTE | 2018-12-04 13:01 | CONS ---
Assessment/Plan Assessment/Plan Hospital Course (Demo Recall) All noted, no acute events Chest x-ray on admission revealed mild cardiomegaly Indwelling's: Right upper extremity AV fistula, right IJ permacath Physical examination this is a chronically ill appearing fragile elderly -[place] woman who is awake in no distress. Head atraumatic nor mocephalic neck is supple chest rise symmetrical breath sounds diminished bases heart S1-S2 abdomen soft bowel sounds present extremities with right upper extremity dressing clean dry intact Assessment: 1. Leukocytosis, likely reactive 2. End-stage renal disease 3. Clotted right arm AV fistula, status post thrombectomy with revision 11/29/15 4. Anemia of chronic disease Plan: Patient is stable, continue observing off antibiotics, pending dc arrangements Consultation Date/Type/Reason Admit Date/Time November 29, 2018 at 09:16 Initial Consult Date 11/28/18 Type of Consult id Requesting Provider: TANYA GONZALEZ DO Date/Time of Note DATE: 12/04/18 TIME: 13:00 Exam/Review of Systems Exam Vitals Vital Signs Date Temp Pulse Resp B/P (MAP) Pulse Ox O2 O2 Flow FiO2 Time Delivery Rate 12/04/18 98.3 85 20 125/50 95 07:50 (75) 12/03/18 Room Air 20:00 Intake and Output 12/03/18 12/03/18 12/04/18 1515:00 23:00 07:00 IntakeIntake Total 120 ml 120 ml OutputOutput Total 1600 ml BalanceBalance -1480 ml 120 ml Results Result Diagram: 12/03/18 0934 12/03/18 0934 Results 24hrs Laboratory Tests Test 12/03/18 16:56 12/03/18 21:14 12/04/18 08:27 12/04/18 12:46 Bedside Glucose 91 91 92 87 Medications Medication Current Medications Acetaminophen (Tylenol Tab) 650 mg Q6H PRN PO MILD PAIN(1-3)OR ELEVATED TEMP; Start 11/27/18 at 18:30 Aspirin (Halfprin) 81 mg DAILY PO Last administered on 12/04/18at 09:12; Admin Dose 81 MG; Start 11/28/18 at 09:00 Atorvastatin Calcium (Lipitor) 40 mg QHS PO Last administered on 12/02/18at 19:58; Admin Dose 40 MG; Start 11/27/18 at 21:00 Bisacodyl (Dulcolax Supp) 10 mg Q48H IN Last administered on 12/01/18at 18:40; Admin Dose 10 MG; Start 11/27/18 at 18:30 Calcitriol (Rocaltrol) 0.25 mcg DAILY PO Last administered on 12/04/18 09:14; Admin Dose 0.25 MCG; Start 11/28/18 at 09:00 EZETIMIBE (Zetia) 10 mg DAILY PO Last administered on 12/04/18 09:14; Admin Dose 10 MG; Start 11/28/18 at 09:00 Famotidine (Pepcid) 20 mg DAILY PO Last administered on 12/04/18 09:13; Admin Dose 20 MG; Start 11/28/18 at 09:00 Folic Acid (Folic Acid) 1 mg DAILY PO Last administered on 12/04/18 09:13; Admin Dose 1 MG; Start 11/28/18 at 09:00 Lisinopril (Zestril) 20 mg DAILY PO Last administered on 12/04/18 09:14; Admin Dose 20 MG; Start 11/28/18 at 09:00 Metoprolol Succinate (Toprol Xl) 100 mg DAILY PO Last administered on 12/04/18 09:13; Admin Dose 100 MG; Start 11/28/18 at 09:00 Senna (Senokot) 1 tab QHS PO Last administered on 12/02/18 19:58; Admin Dose 1 TAB; Start 11/27/18 at 21:00 Miscellaneous Information (Pending [facility] Order For Wound Care) This patient tarango... PRN PRN XX WOUND CARE; Start 11/27/18 at 23:00 Heparin Sodium (Porcine) (Heparin (5000 Units/1ml)) 5,000 unit Q12 SC Last administered on 12/04/18 09:32; Admin Dose 5,000 UNIT; Start 11/27/18 at 22:55 Miscellaneous Information 1 ea NOTE XX ; Start 11/28/18 at 08:00 Glucose (Glutose) 15 gm Q15M PRN PO DECREASED GLUCOSE; Start 11/28/18 at 08:00 Glucose (Glutose) 22.5 gm Q15M PRN PO DECREASED GLUCOSE; Start 11/28/18 at 08:00 Dextrose (D50w Syringe) 25 ml Q15M PRN IV DECREASED GLUCOSE Last administered on 11/30/18at 08:54; Admin Dose 25 ML; Start 11/28/18 at 08:00 Dextrose (D50w Syringe) 50 ml Q15M PRN IV DECREASED GLUCOSE; Start 11/28/18 at 08:00 Glucagon (Glucagen) 1 mg Q15M PRN IM DECREASED GLUCOSE; Start 11/28/18 at 08:00 Glucose (Glutose) 15 gm Q15M PRN BUCCAL DECREASED GLUCOSE; Start 11/28/18 at 08:00 Trazodone HCl (Desyrel) 50 mg HS PRN PO insomnia; Start 11/29/18 at 08:00 Amiodarone HCl (Cordarone) 100 mg DAILY PO Last administered on 12/04/18at 09:13; Admin Dose 100 MG; Start 11/30/18 at 09:00 Diagnostic Test (Pha) (Accu-Chek) 1 ea 02 XX ; Start 12/01/18 at 02:00 Insulin Aspart (Novolog Insulin Pen) NOVOLOG *MILD* ALGORITHM WITH MEALS BEDTIME SC ; Start 11/30/18 at 21:00 Multivitamins Therapeutic (Theragran) 1 tab DAILY PO Last administered on 12/04/18at 09:13; Admin Dose 1 TAB; Start 12/01/18 at 09:00 Ascorbic Acid (Vitamin C) 500 mg DAILY PO Last administered on 12/04/18at 09:13; Admin Dose 500 MG; Start 12/01/18 at 09:00 Heparin Sodium (Porcine) (Heparin (1000 Units/ml)) 4,500 unit AFTER DIALYSIS CATHETER Last administered on 12/03/18at 14:59; Admin Dose 4,500 UNIT; Start 12/03/18 at 14:30 WALLY DOUGHERTY NP December 04, 2018 13:01
[2018-12-04 13:47] VITALS: BP 111/59; PULSE 76; RESP 18
--- NOTE | 2018-12-04 15:19 | EN ---
Date/Time of Note Date/Time of Note DATE: 12/04/18 TIME: 15:19 LOGAN COLON December 04, 2018 15:19
[2018-12-04 17:00] VITALS: BP 63/29; PULSE 65; RESP 20
[2018-12-04] MEDS ORDERED: ALBUMIN HUMAN 25% 100 ML IV PRN (18:30)
[2018-12-04] MEDS ORDERED: ALBUMIN HUMAN 25% 100 ML IV ONE (19:30)
[2018-12-04 19:52] VITALS: BP 101/49; PULSE 62; RESP 17
[2018-12-04] MEDS: ATORVASTATIN 40 MG TAB PO SCH ×2 (20:56→21:00)
[2018-12-04] MEDS: SENNA TAB PO SCH ×2 (20:56→21:00)
[2018-12-05] VITALS (15 sets, daily range): BP systolic 78–123; BP diastolic 47–76; PULSE 64–83; RESP 17–18
[2018-12-05] MEDS: ACCU-CHEK XX SCH (01:59)
[2018-12-05] MEDS: INSULIN ASPART [NOVOLOG] 3 ML PEN SC SCH (07:52)
--- NOTE | 2018-12-05 08:44 | CONS ---
Consult Date/Type/Reason Admit Date/Time November 29, 2018 at 09:16 Initial Consult Date 11/28/18 Type of Consultation: cv Requesting Provider: TANYA GONZALEZ DO Date/Time of Note DATE: 12/05/18 TIME: 08:43 Subjective Interventional cardiology follow-up progress note Subjective: Discussed with staff. no reports of any chest pain or pressure NO PND orthopnea no palpitations events noted: Status post AV fistula repair November 28 Objective: General: Thin cachectic looking female in no acute distress HEENT: NC/AT. pupils are equal. round. NECK: . no stridor. CV: RRR. systolic murmur; no gallop or rubs. PULM: no wheezing or rhonchi. GI: SOFT, NT, ND, no rebound or guarding Extremity: Significant B/L LE edema. no clubbing. neuro: Awake and alert. Psych: angry now rectal: deferred EKG was personally showed normal sinus rhythm. Nonspecific T wave abnormalities Echocardiogram done 11/28/2018 was personally reviewed which shows: Normal left ventricular systolic function. Normal left ventricular cavity size. Normal left ventricular wall thickness. Ejection fraction is visually estimated at 55 %. Tissue Doppler/Mitral Doppler indices are consistent with pseudonormalization with mildly elevated left atrial pressure (Stage II diastolic dysfunction). There is mild enlargement of right atrium. Mild mitral leaflet calcification. Mild mitral annular calcification. Trace mitral regurgitation. No hemodynamically significant aortic stenosis by doppler. Aortic cusps appear mildly calcified. Trileaflet aortic valve. Normal appearance of the tricuspid valve. Estimated peak PA systolic pressure 43 mmHg. There is mild tricuspid regurgitation. Normal size and normal respiratory collapse consistent with normal right atrial pressure. Objective Vitals Vital Signs Date Temp Pulse Resp B/P (MAP) Pulse Ox O2 O2 Flow FiO2 Time Delivery Rate 12/05/18 98.2 72 17 98/49 (65) 97 Room Air 08:37 Intake and Output 12/04/18 12/04/18 12/05/18 1515:00 23:00 07:00 IntakeIntake Total 580 ml OutputOutput Total 200 ml BalanceBalance 580 ml -200 ml Results/Medications Result Diagram: 12/03/18 0934 12/03/18 0934 Results 24 hrs Laboratory Tests Test 12/04/18 12:46 12/04/18 17:37 12/04/18 20:59 12/05/18 07:51 Bedside Glucose 87 153 163 116 Home Meds Active Scripts Multivitamins* (Theragran*) 1 Tab Tab, 1 TAB PO DAILY, #30 TAB Prov:LOGAN COLON. 12/03/18 Ascorbic Acid (Vitamin C) 500 Mg Tab, 500 MG PO DAILY, #30 TAB Prov:LOGAN COLON M. 12/03/18 Reported Medications Trazodone Hcl* (Trazodone Hcl*) 50 Mg Tablet, 50 MG PO QHS, #30 TAB 11/27/18 Tadalafil (Cialis) 20 Mg Tablet, 20 MG PO DAILY, TAB 11/27/18 Sennosides* (Senna Lax*) 8.6 Mg Tablet, 1 TAB PO QHS, TAB 11/27/18 Nut.tx.impaired Renal Fxn,Soy (NEPRO CARB STEADY) 237 Ml Liquid, 237 ML PO DAILY 11/27/18 Metoprolol Succinate* (Toprol XL*) 100 Mg Tab.sr.24h, 100 MG PO DAILY, #30 TAB HOLD FOR SBP<110 OR HR<60 11/27/18 Lorazepam* (Lorazepam*) 0.5 Mg Tablet, 0.5 MG PO HS PRN for NEEDED, TAB 11/27/18 Lisinopril* (Lisinopril*) 20 Mg Tablet, 20 MG PO DAILY, #30 TAB HOLD IF SBP<110 OR HR<60 11/27/18 Folic Acid* (Folic Acid*) 1 Mg Tablet, 1 MG PO Q MON,FRI, TAB 11/27/18 Mineral Oil* (Fleet* Mineral Oil Enema) Unknown Strength Oil, 118 ML [place] Q72H, ENEMA 11/27/18 Febuxostat* (Uloric*) 40 Mg Tablet, 40 MG PO DAILY PRN for NEEDED, TAB 11/27/18 Famotidine* (Famotidine*) 20 Mg Tablet, 20 MG PO DAILY, #30 TAB 11/27/18 Ezetimibe* (Zetia*) 10 Mg Tablet, 10 MG PO DAILY, TAB 11/27/18 Bisacodyl (Dulcolax) 10 Mg Supp.rect, 10 MG RC Q48H, SUPP.RECT 11/27/18 Calcitriol* (Rocaltrol*) 0.25 Mcg Capsule, 0.25 MCG PO DAILY, CAP 11/27/18 Atorvastatin* (Atorvastatin*) 40 Mg Tablet, 40 MG PO QHS, #30 TAB 11/27/18 Aspirin* (Aspirin* EC) 81 Mg Tablet.dr, 81 MG PO DAILY, TAB 11/27/18 Amiodarone Hcl* (Amiodarone Hcl*) 200 Mg Tablet, 200 MG PO DAILY, #30 TAB 11/27/18 Acetaminophen* (Acetaminophen*) 650 Mg Tablet, 650 MG PO Q6H PRN for PAIN AND OR ELEVATED TEMP, #30 TAB 11/27/18 Discontinued Reported Medications Insulin Regular, Human (Humulin R) 100 Unit/1 Ml Vial, 0 IJ SLIDING SCALE, VIAL IF BS 71-150=O UNIT <70 GIVE 8OZ ORANGE JUICE AND CALL MD IF BS 151-200=2 UNITS,201-250=4 UNITS,251-300=8 UNITS,351-400=10 UNITS,>400=12 UNITS AND CALL MD. 11/27/18 Heparin Sodium,Porcine/Pf (HEPARIN SOD 5,000 UNIT/ 0.5 ML) 5,000 Unit/0.5 Ml Vial, 5000 UNIT IJ DAILY, VIAL 11/27/18 Glucagon,Human Recombinant (Glucagon Emergency Kit) 1 Mg Kit, 1 MG IJ NEEDED, KIT 11/27/18 Glipizide* (Glipizide*) 5 Mg Tablet, 5 MG PO AC BREAKFAST, TAB 11/27/18 Darbepoetin Madhu in Polysorbat (Aranesp) 25 Mcg/0.42 Ml Syringe, 75 MCG IJ Q TUES 11/27/18 Medications Current Medications Acetaminophen (Tylenol Tab) 650 mg Q6H PRN PO MILD PAIN(1-3)OR ELEVATED TEMP; Start 11/27/18 at 18:30 Aspirin (Halfprin) 81 mg DAILY PO Last administered on 12/04/18at 09:12; Admin Dose 81 MG; Start 11/28/18 at 09:00 Atorvastatin Calcium (Lipitor) 40 mg QHS PO Last administered on 12/02/18at 19:58; Admin Dose 40 MG; Start 11/27/18 at 21:00 Bisacodyl (Dulcolax Supp) 10 mg Q48H NH Last administered on 12/01/18at 18:40; Admin Dose 10 MG; Start 11/27/18 at 18:30 Calcitriol (Rocaltrol) 0.25 mcg DAILY PO Last administered on 12/04/18 09:14; Admin Dose 0.25 MCG; Start 11/28/18 at 09:00 EZETIMIBE (Zetia) 10 mg DAILY PO Last administered on 12/04/18 09:14; Admin Dose 10 MG; Start 11/28/18 at 09:00 Famotidine (Pepcid) 20 mg DAILY PO Last administered on 12/04/18 09:13; Admin Dose 20 MG; Start 11/28/18 at 09:00 Folic Acid (Folic Acid) 1 mg DAILY PO Last administered on 12/04/18 09:13; Admin Dose 1 MG; Start 11/28/18 at 09:00 Lisinopril (Zestril) 20 mg DAILY PO Last administered on 12/04/18 09:14; Admin Dose 20 MG; Start 11/28/18 at 09:00 Metoprolol Succinate (Toprol Xl) 100 mg DAILY PO Last administered on 12/04/18 09:13; Admin Dose 100 MG; Start 11/28/18 at 09:00 Senna (Senokot) 1 tab QHS PO Last administered on 12/02/18 19:58; Admin Dose 1 TAB; Start 11/27/18 at 21:00 Miscellaneous Information (Pending [facility] Order For Wound Care) This patient tarango... PRN PRN XX WOUND CARE; Start 11/27/18 at 23:00 Heparin Sodium (Porcine) (Heparin (5000 Units/1ml)) 5,000 unit Q12 SC Last administered on 12/04/18at 20:57; Admin Dose 5,000 UNIT; Start 11/27/18 at 22:55 Miscellaneous Information 1 ea NOTE XX ; Start 11/28/18 at 08:00 Glucose (Glutose) 15 gm Q15M PRN PO DECREASED GLUCOSE; Start 11/28/18 at 08:00 Glucose (Glutose) 22.5 gm Q15M PRN PO DECREASED GLUCOSE; Start 11/28/18 at 08:00 Dextrose (D50w Syringe) 25 ml Q15M PRN IV DECREASED GLUCOSE Last administered on 11/30/18at 08:54; Admin Dose 25 ML; Start 11/28/18 at 08:00 Dextrose (D50w Syringe) 50 ml Q15M PRN IV DECREASED GLUCOSE; Start 11/28/18 at 08:00 Glucagon (Glucagen) 1 mg Q15M PRN IM DECREASED GLUCOSE; Start 11/28/18 at 08:00 Glucose (Glutose) 15 gm Q15M PRN BUCCAL DECREASED GLUCOSE; Start 11/28/18 at 08:00 Trazodone HCl (Desyrel) 50 mg HS PRN PO insomnia; Start 11/29/18 at 08:00 Amiodarone HCl (Cordarone) 100 mg DAILY PO Last administered on 12/04/18at 09:13; Admin Dose 100 MG; Start 11/30/18 at 09:00 Diagnostic Test (Pha) (Accu-Chek) 1 ea 02 XX ; Start 12/01/18 at 02:00 Insulin Aspart (Novolog Insulin Pen) NOVOLOG *MILD* ALGORITHM WITH MEALS BEDTIME SC ; Start 11/30/18 at 21:00 Multivitamins Therapeutic (Theragran) 1 tab DAILY PO Last administered on 12/04/18at 09:13; Admin Dose 1 TAB; Start 12/01/18 at 09:00 Ascorbic Acid (Vitamin C) 500 mg DAILY PO Last administered on 12/04/18at 09:13; Admin Dose 500 MG; Start 12/01/18 at 09:00 Heparin Sodium (Porcine) (Heparin (1000 Units/ml)) 4,500 unit AFTER DIALYSIS CATHETER Last administered on 12/03/18at 14:59; Admin Dose 4,500 UNIT; Start 12/03/18 at 14:30 Albumin Human 100 ml @ 100 mls/hr DURING DIALYSIS PRN IV BLOOD PRESSURE SUPPORT Last administered on 12/05/18at 07:25; Admin Dose 100 MLS/HR; Start 12/04/18 at 1 8:30 Assessment/Plan Hospital Course (Demo Recall) 1. History of possible arrhythmia possible proximal atrial fibrillation although detail is unclear. currently on amiodarone remains in sinus 2. Renal failure on dialysis 3. Hemodialysis access malfunction 4. Hypertension 5. Diabetes 6. Possible psych disorder 7. Incomplete data Recommendations: Continue low-dose amiodarone 100 mg daily. consider stopping it later on if remains in NSR TSH was wnl Continue with the beta-sintia. Hemodialysis management as per renal Follow-up with vascular recommendation regarding dialysis access issues Thank you for his referral we will continue to follow along with you as needed. JING GARAY MD [facility] JING GARAY MD December 05, 2018 08:44
[2018-12-05] MEDS: LISINOPRIL 20 MG TAB PO SCH (09:00)
[2018-12-05] MEDS: METOPROLOL (XL) 100 MG TAB PO SCH (09:00)
[2018-12-05] MEDS: ASPIRIN (EC) 81 MG TAB PO SCH (10:10)
[2018-12-05] MEDS: CALCITRIOL 0.25 MCG CAP PO SCH (10:10)
[2018-12-05] MEDS: EZETIMIBE 10 MG TAB PO SCH (10:10)
[2018-12-05] MEDS: AMIODARONE 200 MG TAB PO SCH (10:13)
[2018-12-05] MEDS: MULTIVITAMINS THERAPEUTIC TAB PO SCH (10:13)
[2018-12-05] MEDS: FOLIC ACID 1 MG TAB PO SCH (10:13)
[2018-12-05] MEDS: ASCORBIC ACID 500 MG TAB PO SCH (10:14)
[2018-12-05] MEDS: FAMOTIDINE 20 MG TAB PO SCH (10:14)
[2018-12-05] MEDS: HEPARIN 5,000 UNIT/1 ML VIAL SC SCH (10:14)
--- NOTE | 2018-12-05 13:31 | PN ---
DATE: 12/05/2018 SUBJECTIVE: The patient is unable to have hemodialysis yesterday as she was hypotensive. The patien t was also not discharge. The patient is pending dialysis this morning. Overnight, the patient was stable. No nausea, vomiting. No shortness of breath. OBJECTIVE: VITAL SIGNS: Blood pressure is 120/76, respirations 17, pulse 65, temperature 98.2. HEENT: Head is normocephalic. NECK: Suppler. HEART: Regular rate. LUNGS: Show diminished breath sounds at base. Mild rhonchi. ABDOMEN: Soft, nontender to palpation. No rebound or guarding. EXTREMITIES: Negative for clubbing, cyanosis. Trace edema. NEUROLOGIC: Limited exam, but no focal deficits. DERMATOLOGIC: No new rashes. MEDICATIONS: Reviewed. LABORATORY DATA: Reviewed. ASSESSMENT AND PLAN: 1. End-stage renal disease. Plan is for hemodialysis today. We will dialyze 3 hours of 2k bath, ca lcium 2.5. 2. Anemia. Monitor hemoglobin and hematocrit levels. Continue Epogen. 3. Mineral bone disorder. Monitor calcium and phosphorus levels. No need for phosphate binders. 4. Hyperkalemia. The patient will be dialyzed on low potassium bath. 5. Hypertension. The patient is hypotensive. We will hold blood pressure medications. We will min imize ultrafiltration. 6. Arrhythmia. Continue to monitor. 7. Dyslipidemia. Continue statin therapy. 8. Access. The patient is status post PermCath placement, will need to be evaluated by Dr. Ashia ponce in outpatient setting for possible AV fistula revision. 9. Gastrointestinal and deep venous thrombosis prophylaxis. Dictated By: TANYA GONZALEZ DO NR/NTS Conf#: [id number] DID#: [id number] CC: LOGAN COLON MD; BRANDON MONTE MD;*EndCC*
== END 2018-12-05 12:45 | DRG 252 ==
LOC: EDSEX 13:43 → E/R 13:43 → PP2 17:31 → OBSVTOIN 11-29 09:16 → PP2 11-30 18:14
PROVIDERS: ADMIT Internal Medicine; ATTEND Family Medicine
PROC: 027V3ZZ Dilation of Superior Vena Cava, Percutaneous Approach (ICD-10-PCS; 2018-11-28)
PROC: 05753ZZ Dilation of Right Subclavian Vein, Percutaneous Approach (ICD-10-PCS; 2018-11-28)
PROC: B51MZZZ Fluoroscopy of Right Upper Extremity Veins (ICD-10-PCS; 2018-11-28)
PROC: 05CD0ZZ Extirpation of Matter from Right Cephalic Vein, Open Approach (ICD-10-PCS; principal; 2018-11-28 19:00)
PROC: 0JH63XZ Insertion of Tunneled Vascular Access Device into Chest Subcutaneous Tissue and Fascia, Percutaneous Approach (ICD-10-PCS; 2018-11-30)
PROC: 02H633Z Insertion of Infusion Device into Right Atrium, Percutaneous Approach (ICD-10-PCS; 2018-11-30)
PROC: B244ZZZ Ultrasonography of Right Heart (ICD-10-PCS; 2018-11-30)
DX: T82.868A Thrombosis due to vascular prosthetic devices, implants and grafts, initial encounter (principal); L89.153 Pressure ulcer of sacral region, stage 3; N18.6 End stage renal disease; E43 Unspecified severe protein-calorie malnutrition; I12.0 Hypertensive chronic kidney disease with stage 5 chronic kidney disease or end stage renal disease; Z68.1 Body mass index [BMI] 19.9 or less, adult; R65.10 Systemic inflammatory response syndrome (SIRS) of non-infectious origin without acute organ dysfunction; I82.B11 Acute embolism and thrombosis of right subclavian vein; I27.20 Pulmonary hypertension, unspecified; E78.5 Hyperlipidemia, unspecified; D72.829 Elevated white blood cell count, unspecified; E11.22 Type 2 diabetes mellitus with diabetic chronic kidney disease; Z99.2 Dependence on renal dialysis; E83.89 Other disorders of mineral metabolism; D63.1 Anemia in chronic kidney disease; Y71.2 Prosthetic and other implants, materials and accessory cardiovascular devices associated with adverse incidents; I51.7 Cardiomegaly; E87.5 Hyperkalemia; K59.00 Constipation, unspecified; Z87.891 Personal history of nicotine dependence
CPT/HCPCS: 36415; 36558; 71045; 80048; 80076; 82947; 82962; 83036; 83735; 84100; 84132; 84439; 84443; 85025; 85610; 85730; 86704; 86706; 86850; 86900; 86901; 86920; 87081; 87340; 88300; 90935; 93005; 93306; G0378; J0690; J1100; J1644; J1815; J2250; J2405; J3010; J7042; P9047; Q9967